=== PATIENT | female | born 1935 | race Caucasian/White ===

== ENCOUNTER → 2016-10-21 | Outpatient (CLI) | payer BC ==
[~2016-10-21] MED LIST: ALPR-411 PO; ASPI-390 PO; HYDR-5688 PO; LEVO50TA6 PO; PRAV20TA PO; SERT100T PO
--- NOTE | 2016-10-21 13:17 | DIAGNOSTIC IMAGING REPORT ---
LUMBAR SPINE CT CT DOSE: 1024.39 mGy.cm HISTORY: Pain. Neuropathy. NERVE COMPRESSION S1 RT SIDED, M48.06 TECHNIQUE: Multiaxial CT images of the lumbar spine were performed and reformatted in the sagittal and coronal plane without the use of contrast. COMPARISON: None. FINDINGS: Evidence for posterior laminectomy and fusion at L3-L4, L4-L5, and L5-S1 . Grade 1 anterolisthesis of L4 on L5 with a maximum anterior translation of 3 mm. Vertebral stature is normal throughout. Moderate degenerative disc changes present. Vacuum disc is identified at L5-S1. There is a grade 1 reverse retrolisthesis of L5 on S1 T12-L1: Minimal broad-based disc bulge. L1-L2: minimal/mild broad-based disc bulge. Minimal impact anterior thecal sac. L2-L3: Minimal broad-based disc bulge. L3-L4: posterior laminectomy and fusion. L4-L5: Posterior laminectomy and fusion. Mild impact upon the anterior aspect of thecal sac to the grade 1 anterolisthesis of L4 and L5 combine with posterior bulging disc. L5-S1: Posterior laminectomy and fusion. Considerable narrowing of the neuroforamina bilaterally. Lateral bulging disc material may be present IMPRESSION: 1. Posterior laminectomy and fusion from L3 through L5. 2. Significant narrowing of the neuroforamina bilaterally L5-S1 secondary to osteophytic reaction, broad-based bulging disc components, as well as a grade 1 reverse spondylolisthesis of L5 on S1. 3. Mild disc bulges at virtually all additional levels of lumbar region with minimal impact anterior thecal sac. Electronically signed by: Man Hughes M.D. 10/21/2016 1:15 PM Dictated Date/Time: 10/21/2016 1:03 PM
== END | disposition home or self-care (01) ==
LOC: C.CTS 12:41
PROVIDERS: ATTEND Orthopaedic Surgery Orthopaedic Surgery of the Spine
DX: M48.06 Spinal stenosis, lumbar region (principal)

== ENCOUNTER 2016-12-01 05:09 | Inpatient (IN) | payer BC, OTHER ==
[2016-11-02 08:59] VITALS: BMI 32.0
[2016-11-02 09:15] VITALS: BMI 32.0
--- NOTE | 2016-11-02 09:28 | PAT Medication Instructions ---
Service Date Nov 02, 2016. Current Home Medication List Alprazolam (Alprazolam), 1 TAB PO Q8 PRN for Anxiety/Agitation Hydrocodone/Acetaminophen 5MG/325MG ([place] 5MG/325MG), 1 TABLET PO Q6H PRN for N Levothyroxine Sodium (Levothyroxine Sodium), 1 TAB PO QAM Pravastatin Sodium (Pravachol), 20 MG PO HS Sertraline Hcl (Zoloft), 150 MG PO QAM Medication Instructions For Your Scheduled Surgery - Take the following medications the morning of surgery with a sip of water OTHERWISE NOTHING TO EAT OR DRINK AFTER MIDNIGHT: Sertraline Hcl (Zoloft), 150 MG PO QAM Levothyroxine Sodium (Levothyroxine Sodium), 1 TAB PO QAM Alprazolam (Alprazolam), 1 TAB PO Q8 PRN for Anxiety/Agitation - Take the following medications as scheduled the night before surgery: Alprazolam (Alprazolam), 1 TAB PO Q8 PRN for Anxiety/Agitation Pravastatin Sodium (Pravachol), 20 MG PO HS If you have any questions please call us at [phone] or [phone] or [phone]
[2016-11-02 10:36] LABS: BASO % 0.6 %; BASO ABS # 0.04 K/uL (0-0.2); COMPLETE YES; EOS % 3.7 %; IG% 0.2 %; MEAN CORPUSCULAR HEMOGLOBIN 29.9 pg (25-34); MEAN CORPUSCULAR HGB CONC 31.1 g/dl (32-36); MEAN PLATELET VOLUME 10.6 fL (7.4-10.4); MONO % 11.5 %; PLATELET COUNT 244 K/uL (130-400); RED BLOOD COUNT 4.79 M/uL (4.2-5.4); WHITE BLOOD COUNT 6.17 K/uL (4.8-10.8)
[2016-11-02 10:39] LABS: URINE APPEARANCE CLEAR (CLEAR); URINE BILIRUBIN NEG (NEG); URINE COLOR YELLOW; URINE NITRITE NEG (NEG); URINE PH 6.5 (4.5-7.5); URINE SPECIFIC GRAVITY 1.021 (1.000-1.030); UROBILINOGEN NEG (NEG)
[2016-11-02 10:41] LABS: MANUAL MICROSCOPIC REQUIRED? NO; REVIEW REQ? NO
[2016-11-02 10:45] LABS: INR 0.9 (0.9-1.1); PARTIAL THROMBOPLASTIN RATIO 1.1
[2016-11-02 10:46] LABS: BUN/CREATININE RATIO 26.2 (10-20); CREATININE 0.85 mg/dl (0.60-1.20); POTASSIUM 4.8 mmol/L (3.5-5.1)
[2016-11-02 10:49] LABS: CALCIUM 9.1 mg/dl (8.5-10.1)
[~2016-12-01] VITALS: Ht 160 cm; Wt 84.4 kg
[2016-12-01] VITALS (9 sets, daily range): BP systolic 117–165; BP diastolic 64–84; PULSE 69–79; TEMP 36.6–37.4; O2SAT 90–94; Ht 160 cm; Wt 84.4 kg
[~2016-12-01 05:09] MED LIST changes: -ASPI-390 PO
[2016-12-01] MEDS ORDERED: CEFAZOLIN 2000 MG/60 ML D5W 60 ML IV SCH (06:00)
[2016-12-01] MEDS ORDERED: SODIUM CHLORIDE 0.9% 1000ML 1,000 ML IV SCH ×2 (06:00→10:07)
[2016-12-01] MEDS ORDERED: LACTATED RINGER'S 1000ML 1,000 ML IV SCH (06:00)
[2016-12-01] MEDS ORDERED: BUPIVACAINE/EPINEPHRINE 0.5% MPF 1:200,000 10 ML VIAL ONE ×2 (06:57→06:58)
[2016-12-01] MEDS ORDERED: GELATIN SPONGE SZ 100 ONE (06:57)
[2016-12-01] MEDS ORDERED: THROMBIN FOR SOLN 20000 UNIT KIT ONE (06:57)
[2016-12-01] MEDS ORDERED: VANCOMYCIN HCL 1000MG/20ML VIAL ONE (06:58)
[2016-12-01] MEDS ORDERED: BACITRACIN 50000 UNIT VIAL ONE ×2 (06:58→08:19)
[2016-12-01] MEDS ORDERED: FENTANYL CITRATE INJ 50 MCG/1 ML 2 ML VIAL ONE (07:04)
[2016-12-01] MEDS ORDERED: MIDAZOLAM HCL 1 MG/ML 2ML VIAL ONE (07:04)
[2016-12-01] MEDS ORDERED: HYDROmorphone INJ 2 MG/ML SYR/VIAL ONE (07:04)
[2016-12-01] MEDS ORDERED: KETAMINE HCL INJ 50 MG/ML 10 ML VIAL ONE (07:05)
--- NOTE | 2016-12-01 07:07 | History and Physical ---
History & Physical Date Dec 01, 2016. Chief Complaint Back and lower extremity pain. Weakness numbness numbness tingling History of Present Illness The patient is a 81 year old female with complaints of back and lower extremity difficulty paresthesias numbness tingling to her foot ability to stand and inability to walk distances Past Medical/Surgical History Medical Problems: (1) Spinal stenosis, lumbar region, with neurogenic claudication (2) Spondylolisthesis, lumbar region Additional History Hepatic Disease: No Endocrine Disorder: No Kidney Disease: No Hypertension: Yes Heart Disease: Yes Bleeding Tendencies: No Infectious Diseases: No Allergies Coded Allergies: Alendronate (Verified Allergy, Unknown, unknown reaction, 12/01/16) Home Medications Scheduled Levothyroxine Sodium (Levothyroxine Sodium), 1 TAB PO QAM Pravastatin Sodium (Pravachol), 20 MG PO HS Sertraline Hcl (Zoloft), 150 MG PO QAM Scheduled PRN Alprazolam (Alprazolam), 1 TAB PO Q8 PRN for Anxiety/Agitation Hydrocodone/Acetaminophen 5MG/325MG ([place] 5MG/325MG), 1 TABLET PO Q6H PRN for N Physical Examination Skin: warm/dry, no rash Eyes: normal inspection ENT: normal ENT inspection Neck: supple Respiratory/Chest: lungs clear Cardiovascular: regular rate, rhythm Abdomen / GI: normal bowel sounds Extremities: normal range of motion (decreased range of motion pain with side bending pain with forward flexion) Neurologic/Psych: + pertinent finding (this tingling paresthesias loss of Achilles reflex and loss of pushoff strength) Diagnosis Severe spinal stenosis lumbar spine L5-S1 nerve root irritation and compression. Disc collapse at L5-S1 ASA Classification: ASA Class III Plan of Treatment Plan: Replanting a lumbar spine decompression laminectomy L5-S1 and posterior lumbar interbody fusion 5 S1 she also has some implants above this area fusion which will be removed and modified
[2016-12-01] MEDS ORDERED: ONDANSETRON INJ 2 MG/ML 2 ML VIAL IV PRN ×2 (08:00→10:15)
[2016-12-01] MEDS ORDERED: ATROPINE SULFATE 0.1 MG/ML 5ML SYR IV PRN (08:00)
[2016-12-01] MEDS ORDERED: HYDROmorphone INJ 1 MG/ML SYR IV PRN (08:00)
[2016-12-01] MEDS ORDERED: EpHEDrine SULFATE INJ 50 MG/ML AMP IV PRN (08:00)
[2016-12-01] MEDS ORDERED: LARYING-O-JET KIT (LTA) ONE ×2 (09:07)
[2016-12-01] MEDS ORDERED: GLYCOPYRROLATE INJ 0.2 MG/ML VIAL ONE (09:07)
[2016-12-01] MEDS ORDERED: DEXAMETHASONE SOD INJ 4 MG/ML VIAL ONE (09:07)
[2016-12-01] MEDS ORDERED: ONDANSETRON INJ 2 MG/ML 2 ML VIAL ONE (09:07)
[2016-12-01] MEDS ORDERED: ROCURONIUM BROMIDE 10 MG/ML 5 ML VIAL ONE (09:07)
[2016-12-01] MEDS ORDERED: PROPOFOL IV EMULSION 10 MG/ML 20 ML VIAL IV ONE (09:07)
[2016-12-01] MEDS ORDERED: LIDOCAINE HCL 2% 2 ML VIAL (20MG/ML) ONE (09:07)
[2016-12-01] MEDS ORDERED: NEOSTIGMINE METHYLSULFATE 5 MG/5 ML SYR ONE (09:07)
--- NOTE | 2016-12-01 10:06 | DIAGNOSTIC IMAGING REPORT ---
SPINE ONE VIEW, ANY LEVEL CLINICAL HISTORY: L5-S1 spinal decompression and fusion. Hardware removal. COMPARISON STUDY: 03/14/2016 FINDINGS: A single lateral fluoroscopic spot images provided for interpretation. This reveals pedicle screws at the L4-L5 and S1 levels. There is a grade 1 spondylolisthesis of L4 and L5. There are postsurgical changes of an L5-S1 discectomy and interbody fusion. The provided lateral view is obliqued. On this view, one of pedicle screws approaches the disc level. This may represent a projectional artifact. IMPRESSION: Intraoperative fluoroscopic spot image as described above Electronically signed by: Ruperto Diaz M.D. 12/01/2016 10:05 AM Dictated Date/Time: 12/01/2016 10:02 AM
--- NOTE | 2016-12-01 10:13 | [facility] Operative Report ---
Operative Report Operative Date Dec 01, 2016. Pre-Operative Diagnosis Severe spinal stenosis lumbar spine L5-S1 nerve root irritation and compression. Disc collapse at L5-S1 Post-Operative Diagnosis Severe spinal stenosis lumbar spine L5-S1 nerve root irritation and compression. Disc collapse at L5-S1 Procedure(s) Performed L5-S1 Posterior Lumbar Interbody Fusion, Removal Old Implants; Implantation of pedicle screws L5-S1 Surgeon Dr. Walter Faria Waste Reclaimer Surgeon(s) Jamaal Castle PA-C Estimated Blood Loss 250 ML Findings Disc space collapse and severe stenosis lumbar spine L5-S1 Specimens a. explanted hardware Complication(s) None Disposition Recovery Room / PACU Indications Severe back and lower extremity difficulty paresthesias numbness tingling ability to stand walk upright Description of Procedure Description of procedure Patient was taken to the operative a general intubated anesthetic provided to the patient. Placed prone on the Fede table all soft tissue areas including her eyes were protected. Scrubbed first with Betadine prepped her with ChloraPrep. Draped sterile. An incision fashion incision dissecting the soft tissue and muscle stakes player over the close screws in the facet joint at L5-S1. Formerly a completely complete decompression procedure L5-S1 foraminotomies partial facetectomy and discectomy. Then safely took out the old grabiel was from 345 lumbar spine. An safely got pedicle screws into the sacral 1 pedicle maintain the other pedicle screws. Needle count correct at the close of procedure. No apparent interoperative complications. Thank you I attest to the content of the Intraoperative Record and any orders documented therein. Any exceptions are noted below.
[2016-12-01] MEDS ORDERED: MAGNESIUM HYDROXIDE SUSP 30 ML UDC PO PRN (10:15)
[2016-12-01] MEDS ORDERED: PROMETHAZINE HCL INJ 12.5 MG in SODIUM CHLORIDE 0.9% 50ML 50 ML IV PRN (10:15)
[2016-12-01] MEDS ORDERED: LORAZEPAM 1 MG TAB PO PRN (10:15)
[2016-12-01] MEDS ORDERED: ACETAMINOPHEN 325 MG TAB PO PRN (10:15)
[2016-12-01] MEDS ORDERED: NALOXONE HCL 0.4 MG/1 ML VIAL/CARP IV PRN (10:15)
[2016-12-01] MEDS ORDERED: METOCLOPRAMIDE HCL INJ 5 MG/ML 2 ML VIAL IV PRN (10:15)
[2016-12-01] MEDS ORDERED: LORAZEPAM INJ 1 MG in SYRINGE 0 ML IV PRN (10:15)
[2016-12-01] MEDS ORDERED: ALPRAZOLAM 0.5 MG TAB PO PRN (10:15)
[2016-12-01] MEDS ORDERED: HYDROmorphone HCL 0.5MG/ML 50 ML CASSETTE ONE (10:15)
[2016-12-01] MEDS: FENTANYL CITRATE INJ 50 MCG/1 ML 2 ML VIAL IV PRN ×3 (10:16→10:26)
[2016-12-01 10:35] LABS: HEMATOCRIT 41.2 % (37-47)
--- NOTE | 2016-12-01 11:33 | Anesthesiology Progress Note ---
Anesthesia Post Op Note Date & Time Dec 01, 2016 at 11:32 Vital Signs Pain Intensity: 2 Vital Signs Past 12 Hours Date Time Temp Pulse Resp B/P (MAP) Pulse Ox O2 Delivery O2 Flow Rate FiO2 12/01/16 11:10 36.9 79 16 128/74 (92) 90 Nasal Cannula 4.0 12/01/16 10:47 36.9 12/01/16 10:45 76 20 12/01/16 10:45 76 20 95 12/01/16 10:42 147/68 12/01/16 10:40 79 13 94 12/01/16 10:40 78 13 12/01/16 10:37 136/67 12/01/16 10:35 77 12 12/01/16 10:35 77 12 95 12/01/16 10:32 146/59 12/01/16 10:30 76 18 95 12/01/16 10:30 76 18 12/01/16 10:27 141/67 12/01/16 10:25 78 12 96 12/01/16 10:25 Nasal Cannula 4 12/01/16 10:25 78 12 12/01/16 10:22 151/75 12/01/16 10:20 78 13 95 12/01/16 10:20 78 13 12/01/16 10:17 127/110 12/01/16 10:15 75 10 12/01/16 10:15 75 10 95 12/01/16 10:11 148/88 12/01/16 10:05 37.1 79 16 148/88 95 Mask 10 12/01/16 05:36 36.6 71 20 165/84 (111) 91 Room Air Notes Mental Status: alert / awake / arousable, participated in evaluation Pt Amnestic to Procedure: Yes Nausea / Vomiting: adequately controlled Pain: adequately controlled Airway Patency, RR, SpO2: stable & adequate BP & HR: stable & adequate Hydration State: stable & adequate Anesthetic Complications: no major complications apparent
[2016-12-01] MEDS: SODIUM CHLORIDE 0.9% 1000ML 1,000 ML IV SCH ×2 (13:38→22:44)
[2016-12-01] MEDS: CEFAZOLIN IV 2,000 MG in DEXTROSE 5% 50ML 50 ML IV SCH ×2 (15:44→23:41)
[2016-12-01] MEDS ORDERED: NURSING VERBAL MED ORDER ONE (16:30)
[2016-12-01] MEDS: CIPROFLOXACIN HCL 0.3% OP SOLN 2.5 ML BTL OP SCH ×3 (17:00→22:44)
[2016-12-01] MEDS: DEXAMETHASONE INJ 10 MG in SYRINGE 0 ML IV SCH (18:06)
[2016-12-01] MEDS: HYDROmorphone HCL 0.5MG/ML 50 ML CASSETTE IV PRN ×2 (18:51→22:51)
[2016-12-01] MEDS: PRAVASTATIN SOD 20 MG TAB PO SCH (20:33)
[2016-12-02] MEDS: CIPROFLOXACIN HCL 0.3% OP SOLN 2.5 ML BTL OP SCH ×8 (02:03→23:08)
[2016-12-02] MEDS: DEXAMETHASONE INJ 10 MG in SYRINGE 0 ML IV SCH ×3 (02:03→18:45)
[2016-12-02 03:30] VITALS: BP 106/62; PULSE 69; TEMP 37.2; O2SAT 95
[2016-12-02] MEDS: LEVOTHYROXINE 50 MCG TAB PO SCH (05:26)
[2016-12-02] MEDS ORDERED: NURSING VERBAL MED ORDER ONE (05:45)
[2016-12-02] MEDS ORDERED: BISACODYL 10 MG SUPP PR PRN (06:00)
[2016-12-02] MEDS ORDERED: BISACODYL 5 MG TABEC PO PRN (06:00)
[2016-12-02] MEDS: HYDROmorphone HCL 0.5MG/ML 50 ML CASSETTE IV PRN (06:57)
[2016-12-02 07:06] VITALS: BP 139/71; PULSE 65; TEMP 37; O2SAT 92
--- NOTE | 2016-12-02 07:46 | Discharge Instructions ---
Discharge Instructions Date of Service Dec 02, 2016. Admission Reason for Admission: L5-S1 Spondylolisthesis Discharge Discharge Diagnosis / Problem: stenosis, disc herniation, spondy Discharge Goals Goal(s): Improve function Activity Recommendations Activity Limitations: as noted below Lifting Limitations: until after follow-up appointment Exercise/Sports Limitations: until after follow-up appointment May Resume Sexual Activity: after follow-up appointment Shower/Bathe: keep incision dry Driving or Machine Use: . Instructions / Follow-Up Instructions / Follow-Up MEDICATIONS: Please take your prescriptions as instructed at your pre-op appointment. SPECIAL CARE: The following information is intended to answer some of the common questions and concerns regarding your surgery. Each patient is an individual and receives individual counselling throughout the course of treatment, from diagnosis to surgery all the way through recovery. What follows is not an exhaustive list, but should be a useful guide to some of the common questions and concerns patients have regarding their surgeries. These are not provided to keep you from calling us; rather, they give you something accurate and concrete to reference as you recover from your procedure. If you need us, we are available to you. As always, if you are not sure about something, call us at [phone]. MEDICAL EMERGENCIES: For these conditions, call 911 or go to your local hospital-based Emergency Department - not [facility] or equivalent. * Paralysis * Severe chest pain or difficulty breathing * Swelling or redness of either leg Spine procedures can be rather complex and though complications are rare, they do occur. In such cases, effective advice regarding emergency situations cannot always be addressed over the telephone. You may be referred to the emergency department for more effective management of your problem. Activity Limitations: It is important to give your body time to heal, so please limit your activities : * In general, don't do anything that moves your spine too much. You should avoid contact sports, twisting or heavy lifting while you recover. * 5-10 pounds is all you should attempt to lift. * You should not plan on driving for approximately 3 weeks and you should avoid traveling more than 30-45 minutes at a time. Longer trips should be broken down with walking breaks spaced appropriately. * Physical therapy is not usually required. * Walking and good posture practices will help you recover and regain your function. * Avoid straining or sudden changes in position. * In general, the goal is to take it easy and recover. Don't cause any new problems. Just relax. Showers: * Do not take a bath, use a Jacuzzi or hot tub or otherwise submerge your incision. * It is usually safe to take a shower 4-5 days after your surgery. * Your incision does not require any special creams or ointments. * Simply clean it with soap and water, dry and re-dress with a clean bandage afterwards. Incision: * Keep incision clean, dry and protected until your first follow-up appointment. * Some amount of drainage and redness is normal. Any drainage should be fairly clear and not have a foul odor. * If you feel anything is wrong or you have excessive drainage, please call us. * Your stitches and husam will be removed 10-14 days after your surgery. At the time of your first post-op visit. * Neck surgeries are typically closed with a suture underneath the skin. The steri-strips over the incision should be maintained until we see you in the office. Bracing: * You may be provided with a back or neck brace to encourage good posture and prevent injury. It will remind you not to do too much as you heal and will alert others to the fact that you have had a surgery. * Back braces may be removed for showers and when you are resting at home. They must be worn when you are walking around for any period of time or for travel. * For neck surgery, you will likely be provided with two cervical collars. The soft collar ([place] or foam rubber) is worn most commonly throughout the day and while sleeping. The plastic collar (provided at the hospital) is for showering/bathing. * Except while eating, collars should remain in place. More specifically, bracing is provided for a purpose and should be worn. * Please obtain your brace or collars prior to your operation and bring them to the hospital with you on the day of surgery. * You should also bring your collars to your post-op appointment with Dr. Faria. You should always take good care of your body and practice healthy habits, especially following surgery. You should: * Follow your doctor's treatment plan * Sit and stand properly with good posture (ears over shoulders, shoulders over hips) Don't slouch * Learn to lift correctly * Exercise regularly (low-impact aerobic exercise is especially good, but check with your doctor first) * Generally, be up and walking for 5-10 minutes at a time at least 3-4 times per day from the day you get home * Increasing walking to tolerance until you can walk for 20-30 minutes at a time * Attain and maintain a healthy body weight * Eat healthy foods ( a well-balanced, low-fat diet rich in fruits and vegetables) and get enough calcium * Avoid excessive use of alcohol When to call our office - If you notice any of the following: * Increased pain not relieve by pain medicine * Fevers greater then 100 degrees F, chills or flu symptoms * Increased redness around incision * Drainage from the incision that is not clear * Any foul smelling drainage * Swelling or fluid collection beneath the skin Miscellaneous: * In the hospital, you may be given a walker or cane for support while walking. These are temporary needs and are intended to prevent injuries due to falls. You may discontinue them when you feel strong and steady enough on your feet. * Sleep in a comfortable position. We find that many patients find a lounge chair or recliner with several pillows to be beneficial in the early post-operative period. * The support stockings should be used for 7-10 days and may be discontinued when you are back to walking more and conducting usual household activities. No problem is insignificant. We are here to help you and get you well. Contact us at [phone]. Definitions: Foraminotomy: If part of the disc or a bone spur (osteophyte) is pressing on a nerve as it leaves the vertebra (through an exit called the foramen), a foraminotomy may be done. Otomy means "to make an opening." A foraminotomy is making the opening of the foramen larger, so the nerve can exit without being compressed. Laminotomy: Similar to the foraminotomy, a laminotomy makes a larger opening, this time in your bony plate protecting your spinal canal and spinal cord (the lamina). The lamina may be pressing on your nerve, so the surgeon may make more room for the nerves using a laminotomy. Laminectomy: Sometimes, a laminotomy is not sufficient. The surgeon may need to remove all or part of the lamina. This procedure is called a laminectomy. This can often be done at many levels without any harmful effects. Current Hospital Diet Patient's current hospital diet: Regular Diet Discharge Diet Recommended Diet: Regular Diet Procedures Procedures Performed: L5-S1 Posterior Lumbar Interbody Fusion, Removal Old Implants; Implantation of pedicle screws L5-S1 Pending Studies Studies pending at discharge: no Medical Emergencies . Who to Call and When: Medical Emergencies: If at any time you feel your situation is an emergency, please call 911 immediately. . Non-Emergent Contact Non-Emergency issues call your: Primary Care Provider . "Provider Documentation" section prepared by Walter Faria. . VTE Core Measure Inpt VTE Proph given/why not?: Treatment not indicated
--- NOTE | 2016-12-02 07:51 | Progress Note ---
Subjective Date of Service: Dec 02, 2016. Subjective Pt evaluation today including: conversation w/ patient, chart review, lab review Voiding: no voiding problems Objective Vital Signs Date Time Temp Pulse Resp B/P (MAP) Pulse Ox O2 Delivery O2 Flow Rate FiO2 12/02/16 07:39 Room Air 12/02/16 07:06 37.0 65 16 139/71 (93) 92 Room Air 12/02/16 03:30 37.2 69 24 106/62 (77) 95 Room Air 12/01/16 23:45 Room Air 12/01/16 22:52 36.7 73 14 122/66 (84) 93 Room Air 12/01/16 20:05 37.4 79 18 150/76 (100) 91 Room Air 12/01/16 19:15 Room Air 12/01/16 15:08 37.0 73 18 134/64 (87) 93 Nasal Cannula 2.0 12/01/16 14:09 78 16 141/73 (95) 94 Nasal Cannula 4.0 12/01/16 13:09 69 16 117/71 (86) 92 3.0 12/01/16 12:08 76 16 140/71 (94) 92 Room Air 12/01/16 11:40 78 16 138/75 (96) 92 Nasal Cannula 4.0 12/01/16 11:10 36.9 79 16 128/74 (92) 90 Nasal Cannula 4.0 12/01/16 11:10 90 Nasal Cannula 4.0 12/01/16 11:10 90 Nasal Cannula 4.0 12/01/16 10:47 36.9 12/01/16 10:45 76 20 12/01/16 10:45 76 20 95 12/01/16 10:42 147/68 12/01/16 10:40 79 13 94 12/01/16 10:40 78 13 12/01/16 10:37 136/67 12/01/16 10:35 77 12 12/01/16 10:35 77 12 95 12/01/16 10:32 146/59 12/01/16 10:30 76 18 95 12/01/16 10:30 76 18 12/01/16 10:27 141/67 12/01/16 10:25 78 12 96 12/01/16 10:25 Nasal Cannula 4 12/01/16 10:25 78 12 12/01/16 10:22 151/75 12/01/16 10:20 78 13 95 12/01/16 10:20 78 13 12/01/16 10:17 127/110 12/01/16 10:15 75 10 12/01/16 10:15 75 10 95 12/01/16 10:11 148/88 12/01/16 10:05 37.1 79 16 148/88 95 Mask 10 Laboratory Results Last 24 Hours Test 12/01/16 10:21 Hemoglobin 13.0 g/dL Hematocrit 41.2 % Assessment and Plan Plan We'll have the patient up and ambulatory here today hopefully passes physical therapy. We will arrange for home health care and services for the patient then anticipation of discharge home MondayDecember 03 dressings we changed tomorrow Castro catheter discharged today. Thank you Discharge planning: home with home health
[2016-12-02] MEDS ORDERED: HYDROmorphone INJ 1 MG/ML SYR IV PRN (08:00)
[2016-12-02] MEDS ORDERED: DC PCA ONE (08:00)
[2016-12-02] MEDS ORDERED: OXYCODONE/ACETAMINOPHEN 5-325 TAB PO PRN ×2 (08:00)
[2016-12-02] MEDS ORDERED: HYDROmorphone INJ 2 MG/ML SYR/VIAL IV PRN (08:00)
[2016-12-02] MEDS: CEFAZOLIN IV 2,000 MG in DEXTROSE 5% 50ML 50 ML IV SCH (08:01)
--- NOTE | 2016-12-02 08:06 | Anesthesiology Progress Note ---
Anesthesia Post Op Note Date & Time Dec 02, 2016 at 08:05 Vital Signs Pain Intensity: 4.0 Vital Signs Past 12 Hours Date Time Temp Pulse Resp B/P (MAP) Pulse Ox O2 Delivery O2 Flow Rate FiO2 12/02/16 07:39 Room Air 12/02/16 07:06 37.0 65 16 139/71 (93) 92 Room Air 12/02/16 03:30 37.2 69 24 106/62 (77) 95 Room Air 12/01/16 23:45 Room Air 12/01/16 22:52 36.7 73 14 122/66 (84) 93 Room Air Notes Mental Status: alert / awake / arousable, participated in evaluation Pt Amnestic to Procedure: Yes Nausea / Vomiting: adequately controlled Pain: adequately controlled Airway Patency, RR, SpO2: stable & adequate BP & HR: stable & adequate Hydration State: stable & adequate Anesthetic Complications: no major complications apparent
[2016-12-02] MEDS: SERTRALINE HCL 50 MG TAB PO SCH (09:06)
[2016-12-02] MEDS: POLYETHYLENE (MIRALAX) 17 GM PACK PO SCH (09:06)
[2016-12-02 12:45] VITALS: BP 122/62; PULSE 65; O2SAT 93
[2016-12-02 15:54] VITALS: BP 151/70; PULSE 72; TEMP 37.2; O2SAT 94
[2016-12-02 16:30] VITALS: O2SAT 94
[2016-12-02 17:19] VITALS: TEMP 37.1
[2016-12-02] MEDS: PRAVASTATIN SOD 20 MG TAB PO SCH (20:35)
[2016-12-03 00:11] VITALS: BP 169/93; PULSE 71; TEMP 36.8; O2SAT 94
[2016-12-03] MEDS: CIPROFLOXACIN HCL 0.3% OP SOLN 2.5 ML BTL OP SCH ×3 (01:59→08:27)
[2016-12-03] MEDS: DEXAMETHASONE INJ 10 MG in SYRINGE 0 ML IV SCH (01:59)
[2016-12-03 02:06] VITALS: BP 143/76
[2016-12-03] MEDS: LEVOTHYROXINE 50 MCG TAB PO SCH (05:11)
[2016-12-03 06:28] VITALS: BP 141/85; PULSE 64; TEMP 36.9; O2SAT 90
[2016-12-03] MEDS: POLYETHYLENE (MIRALAX) 17 GM PACK PO SCH (08:28)
[2016-12-03] MEDS: SERTRALINE HCL 50 MG TAB PO SCH (08:28)
--- NOTE | 2016-12-03 08:41 | Discharge Summary ---
Orthopedic Discharge Summary Admission Date/Reason Dec 01, 2016 at 10:12 L5-S1 Spondylolisthesis. Discharge Date/Disposition Dec 03, 2016 Home with services Diagnosis Principal Diagnosis: Spondylolisthesis severe degenerative changes disc herniation lumbar spine all at lumbar 5 S1 Procedure(s) Performed Decompression laminectomy at L5-S1 scan discectomy posterior lumbar interbody fusion at L5-S1. This was preceded with removal of the spinal instrumentation and reinsertion thank you Medication Reconciliation [place] 5 mg Admission Physical Exam As per Admitting History & Physical. Hospital Course Patient was admitted after spinal surgery on December 01. She is improved stable out of bed to chair day one ambulatory day one after surgery and truly stabilized. As of the December 03 she is improved stable alert oriented no chest pain no shortness of breath no confusion he was discharged home improved stable condition her back in the office approximately 10 days prescription for [place] 5 mg on her chart. Discharge Instructions Please refer to the electronic Patient Visit Report (Discharge Instructions) for additional information.
[2016-12-03 08:55] VITALS: TEMP 36.9; O2SAT 90
[2016-12-03 09:08] VITALS: BP 141/85; PULSE 64; O2SAT 90
== END 2016-12-03 09:55 | disposition home or self-care (01) | DRG 460 ==
LOC: C.ACU 05:09 → C.3E 10:12 → ENRESERV 10:35
PROVIDERS: ADMIT Orthopaedic Surgery Orthopaedic Surgery of the Spine; ATTEND Orthopaedic Surgery Orthopaedic Surgery of the Spine
PROC: [UNRECOGNIZED PROCEDURE] (principal; 2016-12-01 07:30)
PROC: 0SP004Z Removal of Internal Fixation Device from Lumbar Vertebral Joint, Open Approach (ICD-10-PCS; principal; 2016-12-01 07:30)
DX: M48.07 Spinal stenosis, lumbosacral region (principal); M48.57XA Collapsed vertebra, not elsewhere classified, lumbosacral region, initial encounter for fracture; F32.9 Major depressive disorder, single episode, unspecified; E66.9 Obesity, unspecified; Z79.899 Other long term (current) drug therapy; Z68.33 Body mass index [BMI] 33.0-33.9, adult

== ENCOUNTER → 2017-02-03 | Outpatient (CLI) | payer BC ==
[2017-02-03 16:28] LABS: HEMATOCRIT 39.1 % (37-47); MEAN CELL VOLUME 92.9 fL (80-100); MEAN CORPUSCULAR HEMOGLOBIN 28.5 pg (25-34); MEAN CORPUSCULAR HGB CONC 30.7 g/dl (32-36); MEAN PLATELET VOLUME 10.9 fL (7.4-10.4); PLATELET COUNT 282 K/uL (130-400); RED BLOOD COUNT 4.21 M/uL (4.2-5.4); WHITE BLOOD COUNT 7.27 K/uL (4.8-10.8)
[2017-02-03 16:38] LABS: ALT/SGPT 17 U/L (12-78); BLOOD UREA NITROGEN 29 mg/dl (7-18); BUN/CREATININE RATIO 36.5 (10-20); CALCIUM 9.2 mg/dl (8.5-10.1); CARBON DIOXIDE 28 mmol/L (21-32); CHLORIDE 105 mmol/L (98-107); CHOLESTEROL 152 mg/dl (0-200); CREATININE 0.78 mg/dl (0.60-1.20); GLUCOSE 88 mg/dl (70-99); POTASSIUM 4.3 mmol/L (3.5-5.1); SODIUM 140 mmol/L (136-145)
[2017-02-03 16:49] LABS: ALB/GLOB RATIO 1.1 (0.9-2); ALKALINE PHOSPHATASE 91 U/L (45-117); AST/SGOT 18 U/L (15-37); HDL CHOLESTEROL 51 mg/dl; LDL CHOLESTEROL CALCULATED 75 mg/dl; TRIGLYCERIDES 128 mg/dl (0-150); VERY LOW DENSITY LIPOPROT CALC 26 mg/dl
== END | disposition home or self-care (01) ==
LOC: C.LABBFT 12:32
PROVIDERS: ATTEND Internal Medicine
DX: R06.09 Other forms of dyspnea (principal); I10 Essential (primary) hypertension

== ENCOUNTER → 2017-02-13 | Outpatient (CLI) | payer BC ==
--- NOTE | 2017-02-13 12:38 | DIAGNOSTIC IMAGING REPORT ---
TWO VIEW CHEST CLINICAL HISTORY: Dyspnea on exertion. FINDINGS: PA and lateral chest radiographs are compared to study dated 02/25/2016. The PA view is degraded by apical lordotic positioning. The the heart is enlarged and there is atherosclerotic calcification of the thoracic aorta. Chronic interstitial thickening is similar to previous. There is no airspace consolidation or pleural effusion. There is no pneumothorax. The skeletal structures are osteopenic. Degenerative change and hyperkyphosis are seen in the thoracic spine. Fusion hardware is partially imaged in the lumbar spine. IMPRESSION: Cardiomegaly with no acute cardiopulmonary abnormality. Electronically signed by: Teo Pride M.D. 02/13/2017 12:37 PM Dictated Date/Time: 02/13/2017 12:35 PM
== END | disposition home or self-care (01) ==
LOC: C.RAD 12:21
PROVIDERS: ATTEND Internal Medicine
DX: R06.09 Other forms of dyspnea (principal); I51.7 Cardiomegaly

== ENCOUNTER → 2017-08-21 | Outpatient (CLI) | payer BC ==
[2017-08-21 12:32] LABS: BASO % 0.4 %; BASO ABS # 0.03 K/uL (0-0.2); EOS % 2.3 %; EOS ABS # 0.16 K/uL (0-0.5); HEMATOCRIT 44.3 % (37-47); HEMOGLOBIN 14.3 g/dL (12.0-16.0); IG# 0.02 K/uL (0.00-0.02); LYMPH % 35.4 %; LYMPH ABS # 2.49 K/uL (1.2-3.4); MEAN CELL VOLUME 96.9 fL (80-100); MEAN CORPUSCULAR HEMOGLOBIN 31.3 pg (25-34); MEAN CORPUSCULAR HGB CONC 32.3 g/dl (32-36); MEAN PLATELET VOLUME 11.2 fL (7.4-10.4); MONO % 9.1 %; MONO ABS # 0.64 K/uL (0.11-0.59); NEUT % 52.5 %; PLATELET COUNT 221 K/uL (130-400); RED CELL DISTRIBUTION WIDTH CV 14.9 % (11.5-14.5); RED CELL DISTRIBUTION WIDTH SD 52.7 fL (36.4-46.3); WHITE BLOOD COUNT 7.04 K/uL (4.8-10.8)
[2017-08-21 13:06] LABS: ALKALINE PHOSPHATASE 85 U/L (45-117); ALT/SGPT 22 U/L (12-78); AST/SGOT 16 U/L (15-37); BLOOD UREA NITROGEN 24 mg/dl (7-18); CALCIUM 9.1 mg/dl (8.5-10.1); CARBON DIOXIDE 28 mmol/L (21-32); CHOLESTEROL 177 mg/dl (0-200); GLUCOSE 92 mg/dl (70-99); LDL CHOLESTEROL CALCULATED 99 mg/dl; POTASSIUM 4.7 mmol/L (3.5-5.1); SODIUM 138 mmol/L (136-145); TOTAL PROTEIN 7.2 gm/dl (6.4-8.2)
== END | disposition home or self-care (01) ==
LOC: C.LABBFT 09:23
PROVIDERS: ATTEND Internal Medicine
DX: I10 Essential (primary) hypertension (principal); E03.9 Hypothyroidism, unspecified; E78.00 Pure hypercholesterolemia, unspecified

== ENCOUNTER 2023-04-16 17:01 | Inpatient (IN) ==
[2023-04-16 17:53] LABS: Basophils # (auto) 0.05 K/uL (0.00-0.20); Basophils % (auto) 0.4 %; Eosinophils # (auto) 0.09 K/uL (0.00-0.50); Eosinophils % (auto) 0.8 %; Hematocrit (blood only) 43.6 % (37.0-47.0); Hemoglobin 14.2 g/dl (12.0-16.0); Immature Granulocytes # (auto) 0.06 K/uL (0.01-0.20); Immature Granulocytes % (auto) 0.5 %; Lymphocytes # (auto) 2.28 K/uL (1.20-3.40); Lymphocytes % (auto) 19.4 %; Mean Corpuscular Hemoglobin 32.1 pg (25.0-34.0); Mean Corpuscular Hgb Conc 32.6 g/dL (32.0-36.0); Mean Corpuscular Volume 98.6 fL (80.0-100.0); Mean Platelet Volume 11.5 fL (9.4-12.4); Monocytes # (auto) 1.24 K/uL (0.11-0.59); Monocytes % (auto) 10.5 %; Neutrophils # (auto) 8.06 K/uL (1.40-6.50); Neutrophils % (auto) 68.4 %; Platelet Count 153 K/uL (130-400); RDW Coefficient of Variation 14.3 % (11.5-14.5); Red Blood Count 4.42 M/uL (4.20-5.40); White Blood Count 11.78 K/ul (4.8-10.8)
[2023-04-16 18:07] LABS: Albumin Globulin Ratio 1.6 (0.9-2); Albumin Level 4.3 gm/dl (3.4-5.0); BUN Creatinine Ratio 27.1 (10-20); Bilirubin,Total 0.7 mg/dl (0.2-1.0); Calcium 9.1 mg/dl (8.6-10.3); Creatinine Clr Calc Pharmacy 48.4 ml/min; Est GFR (African American) 72.4 ml/min; Est GFR (Non-African American) 62.5 ml/min; Globulin 2.7 gm/dl (2.5-4.0); Potassium 4.2 mmol/L (3.5-5.1)
[2023-04-16] MEDS ORDERED: VANCOMYCIN CONSULT ACTIVE PRN (19:29)
[2023-04-16] MEDS ORDERED: VANCOMYCIN HCL 1,750 MG in SODIUM CHLORIDE 0.9% 500 ML IV ONE (19:29)
[2023-04-16] MEDS ORDERED: AMPICILLIN 1,000 MG in SODIUM CHLOR 0.9% MINI-B 100 ML IV SCH (19:30)
[2023-04-16] MEDS ORDERED: KETOROLAC TROMETHAMINE 15 MG/ML VIAL IV ONE (21:36)
--- NOTE | 2023-04-16 21:45 | Emergency Department Note ---
Impression & Plan Flexor tenosynovitis of finger ED Provider Note NAME: JOSELO ARIAS AGE: 87 SEX: F : 1935 ARRIVES VIA: Walk-In INFORMANT: Patient, ED PROVIDER(S): Gerardo Miramontes MD CHIEF COMPLAINT: Finger swelling HPI: This is an 87-year-old female presenting for left index finger swelling. Patient states that she was working on making wreaths, when she was cut. She washed the wound thoroughly and also placed antibiotic ointment on it. However today she woke up and it was extremely swollen and red. She notes that it has quickly progressed. She notes that the swelling is now the entire finger, going down into the actual hand and possibly into the second finger. She states it is impossible for her to flex it due to pain. No fevers or chills. No nausea or vomiting. ROS: See above HPI for pertinent positives & negatives. A total of 10 systems reviewed and were otherwise negative. PAST MEDICAL HISTORY: See Below PAST SURGICAL HISTORY: See Below FAMILY HISTORY: See Below SOCIAL HISTORY: See Below HOME MEDICATIONS: See Below ALLERGIES: See Below VITALS: See Below PHYSICAL EXAMINATION: General: resting comfortably in no acute distress Head: Normocephalic and atraumatic Eyes: Normal inspection, extraocular muscles intact Ear, nose, throat: Normal external exam Neck: Normal range of motion Respiratory: lungs clear to auscultation bilaterally Cardiovascular: Regular rate/rhythm, no murmur GI: soft, nontender, no guarding or rebound Extremities: nontender, moves all extremities, left index finger is uniformly swollen, pain with passive extension, erythematous, tender on the flexor aspect Neuro: The patient awake and alert, appropriately conversive, no focal deficits, symmetric faces Skin: Warm, dry, and intact MEDICAL DECISION MAKING: This is a 87-year-old female presenting for left index finger swelling. Concern for cellulitis versus deeper's infection such as flexor tenosynovitis. Patient does have 3 out of 4 signs of flexor tenosynovitis. -X-ray of the finger as read by me does not reveal any osseous fracture or radiopaque retained foreign body -Laboratories reviewed showing leukocytosis to 11.78 otherwise no electrolyte disturbances. -Will give empiric antibiotic with Vanco and Unasyn. -Discussed case with Dr. Lara, orthopedic surgery. He recommends MRI of the finger as well as n.p.o. after midnight. Will be evaluated for surgery in the morning. -Admitted to Dr. Salcido, hospital service Differential diagnosis: Cellulitis, flexor tenosynovitis, fracture, retained foreign body, abscess ER treatment provided: See below Diagnostics interpreted by me: ECG: None Cardiac Monitoring: An order was placed for continuous cardiac monitoring. The monitor shows a rate of 74 sinus rhythm Laboratory studies: As stated above and show below. Imaging studies: See below. Past Med/Surg History Medical History Sciatica of right side Osteoporosis Gait disturbance Eustachian tube dysfunction Chest pain Carpal tunnel syndrome Abnormal weight gain Spondylolisthesis, lumbar region Spinal stenosis, lumbar region, with neurogenic claudication Lumbar disc disease Surgical History History of back surgery History of carpal tunnel surgery History of Neuroplasty Decompression Median Nerve At Carpal Tunnel History of tonsillectomy and adenoidectomy History of total hysterectomy with bilateral salpingo-oophorectomy (BSO) Family History Father Coronary heart disease Arthritis Heart disease Myocardial infarction Mother Acute subdural hematoma Uncle Diabetes Brother Diabetes Sister Thyroid cancer Aunt Breast cancer Denies family history of Ovarian cancer Prostate cancer Colorectal cancer Social History Smoking Status: Never smoker Second Hand Exposure: Yes (her smoked); Do You Dip or Chew Tobacco: No; Hx Alcohol Use: No Hx Substance Use: No Preferred Language: Ukrainian Communication Ability: Effective Visual Impairment: Limited Hearing Ability: Normal Optical Instruments Supervisor Required: No Beliefs That Will Affect Care: None marital status: Current Living Situation: Family Current Living Situation Comment: daughter and her live next door current occupational status: retired 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 How many Children do You have: 5 Feels Safe at Home: Yes Childhood Exposure to Second-Hand Smoke: Yes Diet: other and regular Diet Comment: GoLo diet caffeine: No Dental Care, Regularly: No Physical Activity Frequency: Daily Seatbelt Use: always Sunscreen Use: No Assistive Devices: Cane, Denture - Upper, Denture - Lower, Glasses and Walker Allergies Allergies Allergy/AdvReac Type Severity Reaction Status Date / Time alendronate sodium Allergy Unknown CAN'T Verified 04/16/23 21:41 REMEMBER Home Meds Home Medications Medication Instructions Recorded Confirmed acetaminophen 650 mg 650 mg PO DIRECTED PRN Pain 06/10/22 04/16/23 tablet,extended release doagusc-odrhunbgptzol-eqhadqyy 250 1 tab PO Q6H PRN Headache 06/10/22 04/16/23 mg-250 mg-65 mg tablet (Excedrin Migraine) melatonin 10 mg tablet 10 mg PO HS PRN Sleep 06/10/22 04/16/23 alprazolam 0.5 mg tablet 0.5 mg PO DAILY anxiety 04/16/23 04/16/23 Previous Rx's Medication Instructions Recorded meloxicam 7.5 mg tablet 7.5 mg PO DAILY #30 tabs 12/19/22 sertraline 100 mg tablet 150 mg (1.5 x 100 mg) PO DAILY 01/20/23 #135 tabs levothyroxine 50 mcg tablet 50 mcg PO DAILY #90 tabs 02/14/23 pravastatin 20 mg tablet 20 mg PO HS #90 tabs 02/16/23 Results & Data (ED) Vital Signs Vital Signs - 24 hr 04/16/23 17:11 04/16/23 20:35 04/16/23 21:22 Temperature 36.5 C Temperature Source Temporal Artery Scan Pulse Rate 83 Pulse Rate [Left Apical] 78 74 Pulse Rate from SpO2 Sensor Pulse Rhythm Regular Pulse Strength Normal Respiratory Rate 20 24 19 Respiratory Effort / Characteristics Non-Labored Spontaneous Non-Labored Respiratory Depth Normal Normal Respiratory Pattern Regular Blood Pressure 145/72 H Blood Pressure [Right Arm] 170/92 H 180/89 H Blood Pressure Mean 96 Blood Pressure Mean [Right Arm] 118 119 Blood Pressure Position Sitting Pulse Oximetry 94 95 96 Oxygen Delivery Method Room Air Room Air Room Air Sepsis Recent Fever Within 48 Hours No Sepsis New/Unexplained Change in Mental Status No Sepsis Action Taken by Nursing No Action Required 04/16/23 21:23 04/16/23 21:24 04/16/23 21:30 Temperature Temperature Source Pulse Rate 72 72 79 Pulse Rate [Left Apical] Pulse Rate from SpO2 Sensor 72 78 Pulse Rhythm Pulse Strength Respiratory Rate 21 15 Respiratory Effort / Characteristics Respiratory Depth Respiratory Pattern Blood Pressure Blood Pressure [Right Arm] Blood Pressure Mean Blood Pressure Mean [Right Arm] Blood Pressure Position Pulse Oximetry 96 92 Oxygen Delivery Method Sepsis Recent Fever Within 48 Hours Sepsis New/Unexplained Change in Mental Status Sepsis Action Taken by Nursing 04/16/23 21:30 04/16/23 21:40 04/16/23 21:50 Temperature Temperature Source Pulse Rate 74 80 Pulse Rate [Left Apical] Pulse Rate from SpO2 Sensor 74 82 Pulse Rhythm Pulse Strength Respiratory Rate 19 20 Respiratory Effort / Characteristics Respiratory Depth Respiratory Pattern Blood Pressure 184/86 H Blood Pressure [Right Arm] Blood Pressure Mean 108 Blood Pressure Mean [Right Arm] Blood Pressure Position Pulse Oximetry 95 95 Oxygen Delivery Method Sepsis Recent Fever Within 48 Hours Sepsis New/Unexplained Change in Mental Status Sepsis Action Taken by Nursing 04/16/23 22:00 04/16/23 22:00 04/16/23 22:10 Temperature Temperature Source Pulse Rate 69 75 Pulse Rate [Left Apical] Pulse Rate from SpO2 Sensor 69 76 Pulse Rhythm Pulse Strength Respiratory Rate 16 16 Respiratory Effort / Characteristics Respiratory Depth Respiratory Pattern Blood Pressure 140/69 Blood Pressure [Right Arm] Blood Pressure Mean 115 Blood Pressure Mean [Right Arm] Blood Pressure Position Pulse Oximetry 91 92 Oxygen Delivery Method Sepsis Recent Fever Within 48 Hours Sepsis New/Unexplained Change in Mental Status Sepsis Action Taken by Nursing 04/16/23 22:21 04/16/23 22:30 04/16/23 22:30 Temperature Temperature Source Pulse Rate 113 H 78 Pulse Rate [Left Apical] Pulse Rate from SpO2 Sensor Pulse Rhythm Pulse Strength Respiratory Rate 18 18 Respiratory Effort / Characteristics Respiratory Depth Respiratory Pattern Blood Pressure 166/82 H Blood Pressure [Right Arm] Blood Pressure Mean 115 Blood Pressure Mean [Right Arm] Blood Pressure Position Pulse Oximetry Oxygen Delivery Method Sepsis Recent Fever Within 48 Hours Sepsis New/Unexplained Change in Mental Status Sepsis Action Taken by Nursing 04/16/23 22:40 Temperature Temperature Source Pulse Rate 74 Pulse Rate [Left Apical] Pulse Rate from SpO2 Sensor Pulse Rhythm Pulse Strength Respiratory Rate 20 Respiratory Effort / Characteristics Respiratory Depth Respiratory Pattern Blood Pressure Blood Pressure [Right Arm] Blood Pressure Mean Blood Pressure Mean [Right Arm] Blood Pressure Position Pulse Oximetry Oxygen Delivery Method Sepsis Recent Fever Within 48 Hours Sepsis New/Unexplained Change in Mental Status Sepsis Action Taken by Nursing Laboratory Data 04/16/23 17:40 04/16/23 17:40 Lab Results 04/16/23 Range/Units 17:40 WBC 11.78 H (4.8-10.8) K/ul RBC 4.42 (4.20-5.40) M/uL Hgb 14.2 (12.0-16.0) g/dl Hct 43.6 (37.0-47.0) % MCV 98.6 (80.0-100.0) fL MCH 32.1 (25.0-34.0) pg MCHC 32.6 (32.0-36.0) g/dL RDW Std Deviation 52.0 H (36.4-46.3) fL RDW Coeff of Wang 14.3 (11.5-14.5) % Plt Count 153 (130-400) K/uL MPV 11.5 (9.4-12.4) fL Immature Gran % (Auto) 0.5 % Neut % (Auto) 68.4 % Lymph % (Auto) 19.4 % [place] % (Auto) 10.5 % Eos % (Auto) 0.8 % Baso % (Auto) 0.4 % Neut # (Auto) 8.06 H (1.40-6.50) K/uL Lymph # (Auto) 2.28 (1.20-3.40) K/uL [place] # (Auto) 1.24 H (0.11-0.59) K/uL Eos # (Auto) 0.09 (0.00-0.50) K/uL Baso # (Auto) 0.05 (0.00-0.20) K/uL Immature Gran # (Auto) 0.06 (0.01-0.20) K/uL Sodium 138 (136-145) mmol/L Potassium 4.2 (3.5-5.1) mmol/L Chloride 104 (98-107) mmol/L Carbon Dioxide 24 (21-32) mmol/L Anion Gap 10 (3-11) BUN 23 (6-23) mg/dl Creatinine 0.85 (0.6-1.2) mg/dl Est Cr Clr Drug Dosing 48.4 ml/min Est GFR ( Amer) 72.4 ml/min Est GFR (Non-Af Amer) 62.5 ml/min BUN/Creatinine Ratio 27.1 H (10-20) Glucose 111 H (70-99(Fasting)) mg/dl Calcium 9.1 (8.6-10.3) mg/dl Total Bilirubin 0.7 (0.2-1.0) mg/dl AST 15 (13-39) U/L ALT 10 (7-52) U/L Alkaline Phosphatase 69 (34-104) U/L Total Protein 7.0 (6.0-8.3) gm/dl Albumin 4.3 (3.4-5.0) gm/dl Globulin 2.7 (2.5-4.0) gm/dl Albumin/Globulin Ratio 1.6 (0.9-2) Administered Medications Ampicillin Sodium 1,000 mg/ (Sodium Chloride) 100 mls @ 200 mls/hr IV Q6H CARLIE Stop: 04/18/23 19:29 Last Infusion: 04/16/23 21:19 Dose: Infused Documented By: Admin: 04/16/23 20:36 Dose: 200 mls/hr Documented By: MICHAEL Discontinued Medications Gadobutrol (Gadobutrol 65ml Vial) 8 ml IV ONCE ONE Stop: 04/16/23 23:27 Last Admin: 04/16/23 23:26 Dose: 8 ml Documented By: ALPESH Vancomycin HCl 1,750 mg/ (Sodium Chloride) 535 mls @ 200 mls/hr IV NOW ONE Stop: 04/16/23 22:09 Last Admin: 04/16/23 21:20 Dose: 200 mls/hr Documented By: MICHAEL Ketorolac Tromethamine (Ketorolac Tromethamine 15 Mg/Ml Vial) 15 mg IV NOW ONE Stop: 04/16/23 21:37 Last Admin: 04/16/23 21:46 Dose: 15 mg Documented By: NARENDRA Discharge Plan Visit Data Chief Complaint: Infection Stated Complaint: LT INDEX FINGER PAIN/INFECTION, FEELS HOT ED Provider: Gerardo Miramontes Discharge Problem: Flexor tenosynovitis of finger Patient Disposition: Admitted As Inpatient Discharge Instructions Interventions: ED Discharge Assessment Last Done: 04/16/23 22:50 Forms Stand Alone Forms: My [facility] [email or web address] Prescriptions Prescriptions: No Action meloxicam 7.5 mg tablet 7.5 mg PO DAILY Qty: 30 5RF sertraline 100 mg tablet 150 mg PO DAILY Qty: 135 3RF levothyroxine 50 mcg tablet 50 mcg PO DAILY Qty: 90 1RF pravastatin 20 mg tablet 20 mg PO HS Qty: 90 3RF melatonin 10 mg tablet 10 mg PO HS PRN (Reason: Sleep) Excedrin Migraine 250-250-65 mg tablet 1 tab PO Q6H PRN (Reason: Headache) acetaminophen 650 mg tablet extended release 650 mg PO DIRECTED PRN (Reason: Pain) alprazolam 0.5 mg tablet 0.5 mg PO DAILY Referrals Referrals: Enriqueta Lovett MD [Primary Care Provider] -
--- NOTE | 2023-04-16 22:18 | History & Physical Report ---
Date of Service April 16, 2023 Assessment & Plan (1) Finger infection: Plan: 87yo female presenting with pain, swelling and redness of her left index finger following a small cut sustained 3 days ago. Patient afebrile, HD stable and non-toxic in appearance. Leukocytosis with WBC=11.28. Concern for rapid progression of patient's infection - Admit to medical -Check CRP -Follow cultures -Check MRI to assess for tendon involvement, possible abscess -Continue antibiotic coverage - Vancomycin and Ceftriaxone -Tylenol as needed for pain or fever -Orthopedic Surgery consultation appreciated (2) Hypercholesterolemia: Plan: Chronic. Stable -Continue Pravastatin 20mg po qHS (3) Hypothyroidism: Plan: Chronic. Stable. TSH normal at 1.887 in October 2022. -Continue home dose of Synthroid History of Present Illness Chief Complaint: infection left 1st finger Primary Care Provider: Enriqueta Lovett MD Ayesha Aquino is an 87yo female with history of HLP, HTN, Hypothyroidism presenting with infection of left index finger. Patient was making holiday wreaths on 04/13/23 when she sustained a small cut to her finger - left index finger near the PIP joint. She washed out the cut, put antibiotic ointment on it and covered it with a bandage. On 04/15/23 she began noticing increased redness, swelling and pain in her left index finger which has steadily increased. She now has some increased discomfort and redness involving her middle finger and the palmar surface of her hand. She is having difficulty bending her fingers. She denies fever, chills, nausea, vomiting. Pain is well controlled at this time. ER Course: Vancomycin Unasyn Toradol Allergies Allergy/AdvReac Type Severity Reaction Status Date / Time alendronate sodium Allergy Unknown CAN'T Verified 04/16/23 21:41 REMEMBER Home Medications Medication Instructions Recorded Confirmed Type acetaminophen 650 mg 650 mg PO DIRECTED PRN Pain 06/10/22 04/16/23 History tablet,extended release jherztt-wkfstehkroezl-rwpcvztw 250 1 tab PO Q6H PRN Headache 06/10/22 04/16/23 History mg-250 mg-65 mg tablet (Excedrin Migraine) melatonin 10 mg tablet 10 mg PO HS PRN Sleep 06/10/22 04/16/23 History meloxicam 7.5 mg tablet 7.5 mg PO DAILY #30 tabs 12/19/22 04/16/23 Rx sertraline 100 mg tablet 150 mg (1.5 x 100 mg) PO DAILY 01/20/23 04/16/23 Rx #135 tabs levothyroxine 50 mcg tablet 50 mcg PO DAILY #90 tabs 02/14/23 04/16/23 Rx pravastatin 20 mg tablet 20 mg PO HS #90 tabs 02/16/23 04/16/23 Rx alprazolam 0.5 mg tablet 0.5 mg PO DAILY anxiety 04/16/23 04/16/23 History Past Med/Surg History Medical History Sciatica of right side Osteoporosis Gait disturbance Eustachian tube dysfunction Chest pain Carpal tunnel syndrome Abnormal weight gain Spondylolisthesis, lumbar region Spinal stenosis, lumbar region, with neurogenic claudication Lumbar disc disease Surgical History History of back surgery History of carpal tunnel surgery History of Neuroplasty Decompression Median Nerve At Carpal Tunnel History of tonsillectomy and adenoidectomy History of total hysterectomy with bilateral salpingo-oophorectomy (BSO) Family History Father Coronary heart disease Arthritis Heart disease Myocardial infarction Mother Acute subdural hematoma Uncle Diabetes Brother Diabetes Sister Thyroid cancer Aunt Breast cancer Denies family history of Ovarian cancer Prostate cancer Colorectal cancer Social History Smoking Status: Never smoker Second Hand Exposure: Yes (her smoked); Do You Dip or Chew Tobacco: No; Hx Alcohol Use: No Hx Substance Use: No Preferred Language: Bulgarian Communication Ability: Effective Visual Impairment: Limited Hearing Ability: Normal Supervisor Dental Laboratory Required: No Beliefs That Will Affect Care: None marital status: Current Living Situation: Family Current Living Situation Comment: daughter and her live next door current occupational status: retired 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 How many Children do You have: 5 Feels Safe at Home: Yes Childhood Exposure to Second-Hand Smoke: Yes Diet: other and regular Diet Comment: GoLo diet caffeine: No Dental Care, Regularly: No Physical Activity Frequency: Daily Seatbelt Use: always Sunscreen Use: No Assistive Devices: Cane, Denture - Upper, Denture - Lower, Glasses and Walker Review of Systems Review of Systems: All systems reviewed & are unremarkable except as noted in HPI & below Physical Exam Physical Exam: General: patient resting comfortably, NAD, non-toxic in appearance, AA&O x 4 Skin: warm, dry, intact, no rashes or lesions HEENT: NC/AT, PERRL, EOMI, anicteric sclera, conjunctiva without injection, external ear normal to inspection and nontender, nares patent, moist mucus membranes, dentition intact, no oropharyngeal lesions, neck supple, trachea midline, no LAD, no thyromegaly, no JVD Heart: +S1/S2, regular, no m/r/g Lungs: equal air entry bilaterally, no rales/rhonchi/wheezes Abd: +BS, soft, NT/ND, no masses/organomegaly/ascites Ext: warm, 2+ pulses in UE/LE bilaterally, redness and swelling of left index finger, erythema and some swelling of palmar surface and portion of left middle finger as well. Tenderness over flexor surface Neuro: nonfocal, patient AA&O x 4, speech intact, no facial droop, moving all extremities on command with equal strength 5/5 Results & Data Results & Data Vital Signs (Past 12 Hours) Vital Signs Temp Pulse Pulse Resp BP BP Pulse Ox 04/16/23 21:22 74 19 180/89 H 96 04/16/23 20:35 78 24 170/92 H 95 04/16/23 17:11 36.5 C 83 20 145/72 H 94 O2 Del Method 04/16/23 21:22 Room Air 04/16/23 20:35 Room Air 04/16/23 17:11 Room Air Laboratory Results Laboratory Results WBC 11.78 K/ul (4.8-10.8) H 04/16/23 17:40 RBC 4.42 M/uL (4.20-5.40) 04/16/23 17:40 Hgb 14.2 g/dl (12.0-16.0) 04/16/23 17:40 Hct 43.6 % (37.0-47.0) 04/16/23 17:40 MCV 98.6 fL (80.0-100.0) 04/16/23 17:40 MCH 32.1 pg (25.0-34.0) 04/16/23 17:40 MCHC 32.6 g/dL (32.0-36.0) 04/16/23 17:40 RDW Std Deviation 52.0 fL (36.4-46.3) H 04/16/23 17:40 RDW Coeff of Wang 14.3 % (11.5-14.5) 04/16/23 17:40 Plt Count 153 K/uL (130-400) 04/16/23 17:40 MPV 11.5 fL (9.4-12.4) 04/16/23 17:40 Immature Gran % (Auto) 0.5 % 04/16/23 17:40 Neut % (Auto) 68.4 % 04/16/23 17:40 Lymph % (Auto) 19.4 % 04/16/23 17:40 [place] % (Auto) 10.5 % 04/16/23 17:40 Eos % (Auto) 0.8 % 04/16/23 17:40 Baso % (Auto) 0.4 % 04/16/23 17:40 Neut # (Auto) 8.06 K/uL (1.40-6.50) H 04/16/23 17:40 Lymph # (Auto) 2.28 K/uL (1.20-3.40) 04/16/23 17:40 [place] # (Auto) 1.24 K/uL (0.11-0.59) H 04/16/23 17:40 Eos # (Auto) 0.09 K/uL (0.00-0.50) 04/16/23 17:40 Baso # (Auto) 0.05 K/uL (0.00-0.20) 04/16/23 17:40 Immature Gran # (Auto) 0.06 K/uL (0.01-0.20) 04/16/23 17:40 Sodium 138 mmol/L (136-145) 04/16/23 17:40 Potassium 4.2 mmol/L (3.5-5.1) 04/16/23 17:40 Chloride 104 mmol/L (98-107) 04/16/23 17:40 Carbon Dioxide 24 mmol/L (21-32) 04/16/23 17:40 Anion Gap 10 (3-11) 04/16/23 17:40 BUN 23 mg/dl (6-23) 04/16/23 17:40 Creatinine 0.85 mg/dl (0.6-1.2) 04/16/23 17:40 Est Cr Clr Drug Dosing 48.4 ml/min 04/16/23 17:40 Est GFR ( Amer) 72.4 ml/min 04/16/23 17:40 Est GFR (Non-Af Amer) 62.5 ml/min 04/16/23 17:40 BUN/Creatinine Ratio 27.1 (10-20) H 04/16/23 17:40 Glucose 111 mg/dl (70-99(Fasting)) H 04/16/23 17:40 Calcium 9.1 mg/dl (8.6-10.3) 04/16/23 17:40 Total Bilirubin 0.7 mg/dl (0.2-1.0) 04/16/23 17:40 AST 15 U/L (13-39) 04/16/23 17:40 ALT 10 U/L (7-52) 04/16/23 17:40 Alkaline Phosphatase 69 U/L (34-104) 04/16/23 17:40 Total Protein 7.0 gm/dl (6.0-8.3) 04/16/23 17:40 Albumin 4.3 gm/dl (3.4-5.0) 04/16/23 17:40 Globulin 2.7 gm/dl (2.5-4.0) 04/16/23 17:40 Albumin/Globulin Ratio 1.6 (0.9-2) 04/16/23 17:40 Diagnostic Findings Xray left finger - per my interpretation, no fracture or foreign body present PG Care Time/CCT Total # of Minutes Spent Total Time Spent with Patient: Total time spent is greater than 50% in coordination of care (as documented) at patient's floor/unit and/or counseling patient: Coding Level of Care Code 59097 INT INP/OBS CARE 2/55MIN Diagnoses Finger infection L08.9 Hypercholesterolemia E78.00 Hypothyroidism E03.9
[2023-04-16] MEDS ORDERED: MELATONIN 3 MG TAB PO ONE (22:19)
[2023-04-16] MEDS ORDERED: GADOBUTROL 65ML VIAL IV ONE (23:26)
[2023-04-17] MEDS ORDERED: VANCOMYCIN HCL 1,000 MG in SODIUM CHLORIDE 0.9% 250 ML IV SCH (00:01)
[2023-04-17] MEDS ORDERED: VANCOMYCIN CONSULT ACTIVE PRN (00:01)
[2023-04-17 00:24] LABS: C Reactive Protein 9.38 mg/dl (0-0.5)
[2023-04-17] MEDS: cefTRIAXone SODIUM 2,000 MG in DEXTROSE 5 % MINI-B 50 ML IV SCH (01:48)
--- NOTE | 2023-04-17 02:06 | Magnetic Resonance Report ---
Exam(s): MRI LEFT HAND W/WO Contrast IV Amt: 8cc gadavist EXAM: MR Left Upper Extremity Without and With Intravenous Contrast, Hand CLINICAL HISTORY: Reason for exam: infection 1st digit. TECHNIQUE: Multiplanar magnetic resonance images of the left hand without and with intravenous contrast. CONTRAST: Patient received 8cc gadavist of IV contrast COMPARISON: No relevant prior studies available. FINDINGS: LIGAMENTS: Medial collateral: Unremarkable. Lateral collateral: Unremarkable. Radial collateral: Unremarkable. Ulnar collateral: Unremarkable. TENDONS: Flexor: Unremarkable. Extensor: Unremarkable. Muscles: Unremarkable. Fluid: Unremarkable. No fluid collection or abscess. Cartilage: Unremarkable. Bones/joints: Unremarkable. No MR evidence of osteomyelitis. Soft tissues: Circumferential subcutaneous edema of the index finger, concerning for cellulitis. No definite flexor or extensor tenosynovitis. IMPRESSION: 1. No MR evidence of osteomyelitis. 2. No fluid collection or abscess. 3. Circumferential subcutaneous edema of the index finger, concerning for cellulitis. No definite flexor or extensor tenosynovitis. Electronically signed by: Noah Manjarrez MD 04/17/23 02:05 AM
[2023-04-17] MEDS: LEVOTHYROXINE SODIUM 50 MCG TABLET PO SCH (05:46)
--- NOTE | 2023-04-17 06:52 | Orthopedic Consultation ---
Date of Consultation April 17, 2023 Assessment & Plan (1) Finger infection: Cellulitis left index finger. Patient was given a dose of vancomycin as well as ampicillin in the emergency room. She was then started on Rocephin and vancomycin per the hospitalist team. She is already seeing some noticeable results in color in her finger. She states that the swelling continues. Continue IV antibiotics for now. Re assess in 24 hours. Elevation of the left hand up on at least 2 pillows. Ice as ne eded. Case discussed with Dr Mccord. Will recheck in 24 hours to see how she is progressing. If she is not progressing, plan for washout per Dr Mccord. Pt may eat today and be NPO after midnight tonight. History of Present Illness Reason for Consultation: Cellulitis left index finger Attending Physician: Catherine Salcido DO History of Present Illness 87-year-old female, right hand dominant, with history of experiencing a small laceration over the dorsum of her left index finger approximally 2-3 days ago, just distal to the PIP joint. At that time, the patient cleansed the wound with soap and water and then put antibiotic ointment on the cut. A small bandage was then placed over it. Over the next day or so she noticed some increased swelling and erythema around the cut and continued to worsen. Soon the whole finger was swollen and she was noticing some increased erythema going up into her hand and she came to the emergency room. She was seen by the staff. It was felt that she should be admitted for IV antibiotics and she was admitted by the hospitalist service. We have been asked to see her for her cellulitis. Currently she states that the finger is feeling a little bit better. Nursing is also present and states that they have noticed a difference since the start of antibiotics. Patient and nursing state that the finger was swollen to the point it looked purple but the color is much better now. No other new complaints Allergies Allergy/AdvReac Type Severity Reaction Status Date / Time alendronate sodium Allergy Unknown CAN'T Verified 04/16/23 21:41 REMEMBER Home Medications Medication Instructions Recorded Confirmed Type acetaminophen 650 mg 650 mg PO DIRECTED PRN Pain 06/10/22 04/16/23 History tablet,extended release pqemopz-lqhyaisalhhct-xflgpgoq 250 1 tab PO Q6H PRN Headache 06/10/22 04/16/23 History mg-250 mg-65 mg tablet (Excedrin Migraine) melatonin 10 mg tablet 10 mg PO HS PRN Sleep 06/10/22 04/16/23 History meloxicam 7.5 mg tablet 7.5 mg PO DAILY #30 tabs 12/19/22 04/16/23 Rx sertraline 100 mg tablet 150 mg (1.5 x 100 mg) PO DAILY 01/20/23 04/16/23 Rx #135 tabs levothyroxine 50 mcg tablet 50 mcg PO DAILY #90 tabs 02/14/23 04/16/23 Rx pravastatin 20 mg tablet 20 mg PO HS #90 tabs 02/16/23 04/16/23 Rx alprazolam 0.5 mg tablet 0.5 mg PO DAILY anxiety 04/16/23 04/16/23 History Patient History Medical History Sciatica of right side Osteoporosis Gait disturbance Eustachian tube dysfunction Chest pain Carpal tunnel syndrome Abnormal weight gain Spondylolisthesis, lumbar region Spinal stenosis, lumbar region, with neurogenic claudication Lumbar disc disease Surgical History History of back surgery History of carpal tunnel surgery History of Neuroplasty Decompression Median Nerve At Carpal Tunnel History of tonsillectomy and adenoidectomy History of total hysterectomy with bilateral salpingo-oophorectomy (BSO) Family History Father Coronary heart disease Arthritis Heart disease Myocardial infarction Mother Acute subdural hematoma Uncle Diabetes Brother Diabetes Sister Thyroid cancer Aunt Breast cancer Denies family history of Ovarian cancer Prostate cancer Colorectal cancer Social History Smoking Status: Never smoker Second Hand Exposure: Yes (her smoked); Do You Dip or Chew Tobacco: No; Hx Alcohol Use: Yes Alcohol type: wine Hx Substance Use: No Preferred Language: Thai Communication Ability: Effective Visual Impairment: Limited Hearing Ability: Normal Maintenance Clerk Required: No Beliefs That Will Affect Care: None marital status: Current Living Situation: Family Current Living Situation Comment: lives in split home with daughter and son-in-law living on the other side current occupational status: retired 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 She is alert and oriented x3. No acute distress. Pleasant cooperative. On examination of her left hand, she has some noticeable swelling over the second and third MP joints with mild erythema noted. A well-healed laceration about 8 mm in length is noted just distal to the PIP joint over the dorsum of the finger. She has mode erythema of the index finger at this time on the dorsal and volar aspect which extends just proximal into the palmar aspect of the hand. She is able to extend the finger but she at this time, is unable to flex the finger secondary to swelling and pain. She has pain on palpation of the entire index finger at this time. She has some swelling of the volar aspect of the third finger close to the MP joint which is tender on palpation. She has mild pain with flexion but none with extension. Palpation of the palmar aspect shows pain just proximal to the MP joints of the second and third fingers. She has mild pain on palpation close to the first MP joint stopping just short of the thenar eminence. She has good range of motion of her thumb as well as her fourth and fifth fingers. She has some slight decreased flexion of the third finger but can almost completely flex the finger at this time. She has full extension of the fingers at this time. She has good range of motion of her left wrist without discomfort. Forearm is nontender at this time. Decree sensation of the index finger at this time with ssii-bcg-[id number] feeling. Capillary refill is less than 2 seconds Results & Data Vital Signs (Past 12 Hours) Vital Signs Temp Pulse Pulse Pulse Resp BP BP 04/17/23 00:10 37.1 C 79 20 160/88 H 12/03/23 22:40 74 20 04/16/23 22:30 166/82 H 04/16/23 22:30 78 18 04/16/23 22:21 113 H 18 04/16/23 22:10 75 16 04/16/23 22:00 140/69 04/16/23 22:00 69 16 04/16/23 21:50 80 20 04/16/23 21:40 74 19 04/16/23 21:30 184/86 H 04/16/23 21:30 79 15 04/16/23 21:24 72 21 04/16/23 21:23 72 04/16/23 21:22 74 19 180/89 H 04/16/23 20:35 78 24 170/92 H Pulse Ox O2 Del Method 04/17/23 00:10 95 Room Air 04/16/23 22:40 04/16/23 22:30 04/16/23 22:30 04/16/23 22:21 04/16/23 22:10 92 04/16/23 22:00 04/16/23 22:00 91 04/16/23 21:50 95 04/16/23 21:40 95 04/16/23 21:30 04/16/23 21:30 92 04/16/23 21:24 96 04/16/23 21:23 04/16/23 21:22 96 Room Air 04/16/23 20:35 95 Room Air Laboratory Results Laboratory Results WBC 11.78 K/ul (4.8-10.8) H 04/16/23 17:40 RBC 4.42 M/uL (4.20-5.40) 04/16/23 17:40 Hgb 14.2 g/dl (12.0-16.0) 04/16/23 17:40 Hct 43.6 % (37.0-47.0) 04/16/23 17:40 MCV 98.6 fL (80.0-100.0) 04/16/23 17:40 MCH 32.1 pg (25.0-34.0) 04/16/23 17:40 MCHC 32.6 g/dL (32.0-36.0) 04/16/23 17:40 RDW Std Deviation 52.0 fL (36.4-46.3) H 04/16/23 17:40 RDW Coeff of Wang 14.3 % (11.5-14.5) 04/16/23 17:40 Plt Count 153 K/uL (130-400) 04/16/23 17:40 MPV 11.5 fL (9.4-12.4) 04/16/23 17:40 Immature Gran % (Auto) 0.5 % 04/16/23 17:40 Neut % (Auto) 68.4 % 04/16/23 17:40 Lymph % (Auto) 19.4 % 04/16/23 17:40 Alexander % (Auto) 10.5 % 04/16/23 17:40 Eos % (Auto) 0.8 % 04/16/23 17:40 Baso % (Auto) 0.4 % 04/16/23 17:40 Neut # (Auto) 8.06 K/uL (1.40-6.50) H 04/16/23 17:40 Lymph # (Auto) 2.28 K/uL (1.20-3.40) 04/16/23 17:40 Alexander # (Auto) 1.24 K/uL (0.11-0.59) H 04/16/23 17:40 Eos # (Auto) 0.09 K/uL (0.00-0.50) 04/16/23 17:40 Baso # (Auto) 0.05 K/uL (0.00-0.20) 04/16/23 17:40 Immature Gran # (Auto) 0.06 K/uL (0.01-0.20) 04/16/23 17:40 Sodium 138 mmol/L (136-145) 04/16/23 17:40 Potassium 4.2 mmol/L (3.5-5.1) 04/16/23 17:40 Chloride 104 mmol/L (98-107) 04/16/23 17:40 Carbon Dioxide 24 mmol/L (21-32) 04/16/23 17:40 Anion Gap 10 (3-11) 04/16/23 17:40 BUN 23 mg/dl (6-23) 04/16/23 17:40 Creatinine 0.85 mg/dl (0.6-1.2) 04/16/23 17:40 Est Cr Clr Drug Dosing 48.4 ml/min 04/16/23 17:40 Est GFR ( Amer) 72.4 ml/min 04/16/23 17:40 Est GFR (Non-Af Amer) 62.5 ml/min 04/16/23 17:40 BUN/Creatinine Ratio 27.1 (10-20) H 04/16/23 17:40 Glucose 111 mg/dl (70-99(Fasting)) H 04/16/23 17:40 Calcium 9.1 mg/dl (8.6-10.3) 04/16/23 17:40 Total Bilirubin 0.7 mg/dl (0.2-1.0) 04/16/23 17:40 AST 15 U/L (13-39) 04/16/23 17:40 ALT 10 U/L (7-52) 04/16/23 17:40 Alkaline Phosphatase 69 U/L (34-104) 04/16/23 17:40 C-Reactive Protein 9.38 mg/dl (0-0.5) H 04/16/23 17:40 Total Protein 7.0 gm/dl (6.0-8.3) 04/16/23 17:40 Albumin 4.3 gm/dl (3.4-5.0) 04/16/23 17:40 Globulin 2.7 gm/dl (2.5-4.0) 04/16/23 17:40 Albumin/Globulin Ratio 1.6 (0.9-2) 04/16/23 17:40 Impressions Hand MRI 04/16/23 22:18 Exam(s): MRI LEFT HAND W/WO Contrast IV Amt: 8cc gadavist EXAM: MR Left Upper Extremity Without and With Intravenous Contrast, Hand CLINICAL HISTORY: Reason for exam: infection 1st digit. TECHNIQUE: Multiplanar magnetic resonance images of the left hand without and with intravenous contrast. CONTRAST: Patient received 8cc gadavist of IV contrast COMPARISON: No relevant prior studies available. FINDINGS: LIGAMENTS: Medial collateral: Unremarkable. Lateral collateral: Unremarkable. Radial collateral: Unremarkable. Ulnar collateral: Unremarkable. TENDONS: Flexor: Unremarkable. Extensor: Unremarkable. Muscles: Unremarkable. Fluid: Unremarkable. No fluid collection or abscess. Cartilage: Unremarkable. Bones/joints: Unremarkable. No MR evidence of osteomyelitis. Soft tissues: Circumferential subcutaneous edema of the index finger, concerning for cellulitis. No definite flexor or extensor tenosynovitis. IMPRESSION: 1. No MR evidence of osteomyelitis. 2. No fluid collection or abscess. 3. Circumferential subcutaneous edema of the index finger, concerning for cellulitis. No definite flexor or extensor tenosynovitis. Electronically signed by: Noah Manjarrez MD 04/17/23 02:05 AM
[2023-04-17 07:45] LABS: Hematocrit (blood only) 40.1 % (37.0-47.0); Hemoglobin 13.3 g/dl (12.0-16.0); Mean Corpuscular Hemoglobin 32.5 pg (25.0-34.0); Mean Corpuscular Hgb Conc 33.2 g/dL (32.0-36.0); Mean Platelet Volume 11.6 fL (9.4-12.4); Platelet Count 148 K/uL (130-400); RDW Coefficient of Variation 14.3 % (11.5-14.5); RDW Standard Deviation 51.6 fL (36.4-46.3); Red Blood Count 4.09 M/uL (4.20-5.40); White Blood Count 9.89 K/ul (4.8-10.8)
[2023-04-17 08:06] LABS: Calcium 8.8 mg/dl (8.6-10.3); Creatinine Clr Calc Pharmacy 54.7 ml/min; Est GFR (African American) 84.2 ml/min; Est GFR (Non-African American) 72.7 ml/min; Potassium 4.1 mmol/L (3.5-5.1)
--- NOTE | 2023-04-17 08:07 | XRay Report ---
XR finger(s) LT min 2V CLINICAL HISTORY: foreign body/infection TECHNIQUE: 3 views of the left second digit were obtained. Comparison: None available at the time of this dictation. FINDINGS: There is no evidence of an acute fracture. Degenerative changes are seen in the joints. Soft tissue s welling is seen about the digit. IMPRESSION: Soft tissue swelling without evidence of underlying acute fracture. No radiodense foreign body is see n. ACT 112: Negative or not required by law. Electronically signed by: Jose Guadalupe Thomas M.D. 04/17/2023 8:06 AM
[2023-04-17] MEDS: ALPRAZolam 0.5 MG TABLET PO SCH (08:16)
[2023-04-17] MEDS: VANCOMYCIN HCL 1,250 MG in SODIUM CHLORIDE 0.9% 250 ML IV SCH ×2 (08:16→19:32)
[2023-04-17] MEDS: SERTRALINE HCL 50 MG TABLET PO SCH (08:16)
[2023-04-17] MEDS: ACETAMINOPHEN 325 MG TAB PO PRN ×3 (08:23→23:47)
--- NOTE | 2023-04-17 10:35 | Pharmacy Report ---
Pharmacy PK ABX Note - Date of Service April 17, 2023 - Assessment and Plan Assessment 87 year old F receiving Vancomycin and Ceftriaxone for treatment of finger cellulitis. * Day #1 of antimicrobial therapy. * Afebrile. Leukocytosis resolved. SCr 0.75 mg/dL, normal. * Imaging shows no evidence of osteomyelitis or tenosynovitis per radiology reports. Plan Vancomycin * Loading dose: 1750 mg IV x 1 * Maintenance dose: 1250 mg IV every 24 hours * Regimen is predicted to achieve target AUC/ARELI of 400-600 mg/L.hr * Random level ordered for: 04/19/23 Ceftriaxone * 2000 mg IV every 24 hours Pharmacy will continue to follow and will adjust dose/frequency as necessary. Thank you. Pharmacy has transitioned to AUC monitoring for vancomycin. AUC/ARELI is the preferred PK/PD target and is associated with decreased risk of nephrotoxicity compared to traditional trough targets.
--- NOTE | 2023-04-17 10:55 | Hospitalist Progress Note ---
Date of Service April 17, 2023 Assessment & Plan (1) Finger infection: Plan: 87yo female presenting with pain, swelling and redness of her left index finger following a small cut sustained 04/13.0 - 04/16 MRI: Circumferential subcutaneous edema of the index finger, concerning for cellulitis. No definite flexor or extensor tenosynovitis. -Remains afebrile. WBC downtrending to 9.89 -CRP 9.3 -Follow cultures - not drawn on admission, pt has already received 4 doses of abx. Will hold off on drawing cultures now, but if signs of infection progressing will obtain -Continue antibiotic coverage - Vancomycin and Ceftriaxone -Tylenol as needed for pain or fever -Orthopedic Surgery consulted - Conservative measures with IV abx for now, reevaluate in 24 hours - NPO at midnight incase of need for procedure (2) Hypercholesterolemia: Plan: Chronic. Stable -Continue Pravastatin 20mg po qHS (3) Hypothyroidism: Plan: Stable. 10/2022:TSH 1.887 -Continue home dose of Synthroid Plan Continued inpatient stay NPO at midnight Admission and Anticipated Discharge Date Admission Date: April 16, 2023 Subjective 1030 - Patient lying in bed, daughter present in the room. Reports that her pain is well controlled with medication. States that finger is about the same, redness has maybe decreased slightly, but swelling has remained the same. Rep orts there are areas that are now getting hard from the swelling. Denies fevers/chills. Reports that Monday her finger was swollen and continued to get worse. Has not used ice here, but was using this at home. She is right handeded. Reports good appetite and is ambulating without issue when not hooked up to the IV. Denies CP or SOB. Review of Systems Review of Systems: All systems reviewed & are unremarkable except as noted in Subjective Physical Exam Physical Exam: General: WN/WD, NAD, VS as above Resp: normal respiratory effort, lungs clear to auscultation CV: RRR, no murmur, no edema Abd: normal bowel sounds, non tender, no hepatosplenomegaly Extremities: left hand: extensive swelling 2nd digit with circumferential erythema - worse at DIP joint. Sensation intact. Very limited ROM. Mild edema distal 3rd digit and into palm. Neuro: A&O x3, Skin: Left hand as above, no further lesions noted Results & Data Results & Data Vital Signs (Past 12 Hours) Vital Signs Temp Pulse Resp BP Pulse Ox O2 Del Method 04/17/23 07:37 37.5 C 76 19 138/78 93 Room Air 04/17/23 00:10 37.1 C 79 20 160/88 H 95 Room Air Laboratory Results CBC and BMP reviewed PG Care Time/CCT Total # of Minutes Spent Total Time Spent with Patient: Total time spent is greater than 50% in coordination of care (as documented) at patient's floor/unit and/or counseling patient: Coding Level of Care Code 16900 SUB INP/OBS CARE 2/35MIN Diagnoses Finger infection L08.9 Hypercholesterolemia E78.00 Hypothyroidism E03.9
[2023-04-17] MEDS: PRAVASTATIN SOD 20 MG TAB PO SCH (19:41)
[2023-04-18] MEDS: MELATONIN 3 MG TAB PO PRN (00:13)
[2023-04-18] MEDS: cefTRIAXone SODIUM 2,000 MG in DEXTROSE 5 % MINI-B 50 ML IV SCH (01:49)
[2023-04-18] MEDS: LEVOTHYROXINE SODIUM 50 MCG TABLET PO SCH (05:32)
[2023-04-18 07:10] LABS: Basophils # (auto) 0.04 K/uL (0.00-0.20); Basophils % (auto) 0.4 %; Eosinophils # (auto) 0.11 K/uL (0.00-0.50); Eosinophils % (auto) 1.1 %; Hematocrit (blood only) 40.3 % (37.0-47.0); Hemoglobin 13.2 g/dl (12.0-16.0); Immature Granulocytes # (auto) 0.05 K/uL (0.01-0.20); Immature Granulocytes % (auto) 0.5 %; Lymphocytes # (auto) 1.85 K/uL (1.20-3.40); Lymphocytes % (auto) 19.3 %; Mean Corpuscular Hemoglobin 32.4 pg (25.0-34.0); Mean Corpuscular Hgb Conc 32.8 g/dL (32.0-36.0); Monocytes # (auto) 1.15 K/uL (0.11-0.59); Neutrophils % (auto) 66.7 %; Platelet Count 148 K/uL (130-400); RDW Coefficient of Variation 14.4 % (11.5-14.5); Red Blood Count 4.07 M/uL (4.20-5.40)
[2023-04-18 07:34] LABS: BUN Creatinine Ratio 33.3 (10-20); Calcium 8.8 mg/dl (8.6-10.3); Creatinine Clr Calc Pharmacy 62.1 ml/min; Est GFR (African American) 93.4 ml/min; Est GFR (Non-African American) 80.6 ml/min
[2023-04-18] MEDS: SERTRALINE HCL 50 MG TABLET PO SCH (08:55)
[2023-04-18] MEDS: ALPRAZolam 0.5 MG TABLET PO SCH (08:59)
[2023-04-18] MEDS: ACETAMINOPHEN 325 MG TAB PO PRN ×2 (08:59→18:11)
--- NOTE | 2023-04-18 09:57 | Hospitalist Progress Note ---
Date of Service April 18, 2023 Assessment & Plan (1) Finger infection: Plan: 87yo female presenting with pain, swelling and redness of her left index finger following a small cut sustained 04/13.0 - 04/16 MRI: Circumferential subcutaneous edema of the index finger, concerning for cellulitis. No definite flexor or extensor tenosynovitis. -Remains afebrile. WBC downtrending to 9.89 -CRP 9.3 -Follow cultures - not drawn on admission, pt has already received 4 doses of abx. Will hold off on drawing cultures now. - Febrile PM 04/17, infection progession, pt feeling worse --> blood cultures ordered 04/18 -Continue antibiotic coverage - Vancomycin and Ceftriaxone -Tylenol as needed for pain or fever -Orthopedic Surgery consulted -Plan for I&D Septic Flexor Tenosynovitis 04/[address] Mccord (2) Hypercholesterolemia: Plan: Chronic. Stable -Continue Pravastatin 20mg po qHS (3) Hypothyroidism: Plan: Stable. 10/2022:TSH 1.887 -Continue home dose of Synthroid Plan Continued inpatient stay Admission and Anticipated Discharge Date Admission Date: April 16, 2023 Subjective 0935 - Patient seen lying in bed. Reports feeling lousy because she did not sleep well last night. Feels that her finger is progressing and she is now is not loosing ROM in her third finger. states saw the ortho PA this morning and planning to go to the OR this afternoon. Denies fevers or chills. has been getting up to the bathroom with no issues. No CP or SOB. Review of Systems Review of Systems: All systems reviewed & are unremarkable except as noted in Subjective Physical Exam Physical Exam: General: WN/WD, NAD, VS as above Resp: normal respiratory effort, lungs clear to auscultation CV: RRR, no murmur, no edema Abd: non tender, no hepatosplenomegaly Extremities: left hand: extensive swelling 2nd digit with circumferential erythema - worse today, almost entire finger is bright red. Sensation intact. No ROM on the 2nd digit and decreased range of motion to 3rd digit. Moderate edema distal 3rd digit and into palm. Neuro: A&O x3, Skin: Left hand as above, no further lesions noted Results & Data Results & Data Vital Signs (Past 12 Hours) Vital Signs Temp Pulse Resp BP Pulse Ox O2 Del Method 04/18/23 07:16 36.7 C 68 18 149/71 H 95 Room Air Laboratory Results CBC and Chemistry reviewed PG Care Time/CCT Total # of Minutes Spent Total Time Spent with Patient: Total time spent is greater than 50% in coordination of care (as documented) at patient's floor/unit and/or counseling patient: Coding Level of Care Code 72802 SUB INP/OBS CARE 2/35MIN Diagnoses Finger infection L08.9 Hypercholesterolemia E78.00 Hypothyroidism E03.9
[2023-04-18] MEDS: VANCOMYCIN HCL 750 MG in SODIUM CHLORIDE 0.9% 250 ML IV SCH ×2 (10:06→19:57)
--- NOTE | 2023-04-18 10:44 | Anesthesiology Consultation ---
Date of Service April 18, 2023 Assessment & Plan (1) Encounter for pre-operative examination: Chart Review Chart Review: Acceptable Risk for Surgery and Patient NOT seen in Pre Admission Testing will order preop ECG if one not already done Consults Requested none History Surgery Operation Date: 04/18/23 08:20 Proposed Procedures p Left Index Finger Incision and Drainage Septic Flexor Tenosynovitis - Cipriano Mccord MD Height/Weight Height: 5 ft 2 in Weight: 82.7 kg Allergies Allergy/AdvReac Type Severity Reaction Status Date / Time alendronate sodium Allergy Unknown CAN'T Verified 04/16/23 21:41 REMEMBER Medications Home Medications Medication Instructions Recorded Confirmed Last Taken acetaminophen 650 mg 650 mg PO DIRECTED PRN Pain 06/10/22 04/16/23 Unknown tablet,extended release zxpcypp-fgoevlecobpgj-rzgdbdqy 250 1 tab PO Q6H PRN Headache 06/10/22 04/16/23 Unknown mg-250 mg-65 mg tablet (Excedrin Migraine) melatonin 10 mg tablet 10 mg PO HS PRN Sleep 06/10/22 04/16/23 Unknown meloxicam 7.5 mg tablet 7.5 mg PO DAILY #30 tabs 12/19/22 04/16/23 04/16/23 sertraline 100 mg tablet 150 mg (1.5 x 100 mg) PO DAILY 01/20/23 04/16/23 04/16/23 #135 tabs levothyroxine 50 mcg tablet 50 mcg PO DAILY #90 tabs 02/14/23 04/16/23 04/16/23 pravastatin 20 mg tablet 20 mg PO HS #90 tabs 02/16/23 04/16/23 04/15/23 alprazolam 0.5 mg tablet 0.5 mg PO DAILY anxiety 04/16/23 04/16/23 04/16/23 Active Medications Generic Name Dose Route Start Last Admin Trade Name Freq PRN Reason Stop Dose Admin Acetaminophen 650 mg 04/17/23 00:01 04/18/23 08:59 Acetaminophen 325 Mg Tab PO 05/17/23 00:00 650 mg Q4H PRN Administration Pain or Fever Alprazolam 0.5 mg 04/17/23 09:00 04/18/23 08:59 Alprazolam 0.5 Mg Tablet PO 05/17/23 08:59 0.5 mg DAILY CARLIE Administration Ceftriaxone Sodium 2,000 mg/ 50 mls @ 100 mls/hr 04/17/23 02:00 04/18/23 02:26 Dextrose IV 04/24/23 01:59 Infused Q24H CARLIE Infusion Protocol Vancomycin HCl 750 mg/ Sodium 265 mls @ 200 mls/hr 04/18/23 09:15 04/18/23 10:06 Chloride IV 04/25/23 09:14 200 mls/hr Q12H CARLIE Administration Levothyroxine Sodium 50 mcg 04/17/23 06:30 04/18/23 05:32 Levothyroxine Sodium 50 Mcg Tablet PO 05/17/23 06:29 50 mcg DAILYBB CARLIE Administration Melatonin 3 mg 04/17/23 23:56 04/18/23 00:13 Melatonin 3 Mg Tab PO 05/17/23 23:55 3 mg HS PRN Administration Sleep Pravastatin Sodium 20 mg 04/17/23 21:00 04/17/23 19:41 Pravastatin Sod 20 Mg Tab PO 05/17/23 20:59 20 mg HS CARLIE Administration Sertraline HCl 150 mg 04/17/23 09:00 04/18/23 08:55 Sertraline Hcl 50 Mg Tablet PO 05/17/23 08:59 150 mg DAILY CARLIE Administration Past Medical History Medical History (Updated 04/18/23 @ 10:44 by Mike Hogue MD) Encounter for pre-operative examination Hypertension Sciatica of right side Osteoporosis Gait disturbance Eustachian tube dysfunction Chest pain Carpal tunnel syndrome Abnormal weight gain Spondylolisthesis, lumbar region Spinal stenosis, lumbar region, with neurogenic claudication Lumbar disc disease Past Family History Family History Father Coronary heart disease Arthritis Heart disease Myocardial infarction Mother Acute subdural hematoma Uncle Diabetes Brother Diabetes Sister Thyroid cancer Aunt Breast cancer Denies family history of Ovarian cancer Prostate cancer Colorectal cancer Past Surgical History Surgical History History of back surgery History of carpal tunnel surgery History of Neuroplasty Decompression Median Nerve At Carpal Tunnel History of tonsillectomy and adenoidectomy History of total hysterectomy with bilateral salpingo-oophorectomy (BSO) Social History Smoking Status: Never smoker Do You Dip or Chew Tobacco: No Hx Alcohol Use: Yes Alcohol type: wine alcohol intake frequency: holidays/special occasions only Hx Substance Use: No Physical Exam Vital Signs Last Vital Signs Temp 36.7 C 04/18/23 07:16 Pulse 68 04/18/23 07:16 Resp 18 04/18/23 07:16 BP 149/71 H 04/18/23 07:16 Pulse Ox 95 04/18/23 07:16 O2 Del Method Room Air 04/18/23 07:16 Testing Laboratory Results 04/18/23 06:18 04/18/23 06:18
--- NOTE | 2023-04-18 11:01 | Orthopedic Progress Note ---
Date of Service April 18, 2023 Assessment & Plan (1) Other infective (teno)synovitis, right hand: Plan: Left index finger septic flexor tenosynovitis Continue conservative management versus surgical management was discussed with the patient. Since she has had worsening symptoms and her physical exam is worsened from yesterday, she will be scheduled later today for a left index finger I&D septic flexor tenosynovitis. The patient is already n.p.o. We discussed postoperative treatment and awaiting intraoperative cultures for proper antibiotic choice. All potential risks, benefits, complications, alternatives, and rehab have been discussed with the patient and she wishes to proceed. We will follow the patient postoperatively. Surgical consent placed on the front of the chart for Dr. Mccord to review with the patient. Admission and Anticipated Discharge Date Admission Date: April 16, 2023 Subjective The patient states she is having quite a bit of pain in the left index finger. The swelling has worsened significantly and she feels that it is pushing her middle finger away from the index finger. She feels that despite the antibiotics her finger continues to worsen from yesterday. She is having significant pain with difficulties sleeping. She states she had a small cut at the radial aspect of the index finger while making wreaths. She is uncertain if the wire had punctured her finger at that area. She later developed redness and pain of the index finger which is worsened over the past few days. Physical Exam Constitutional: WD/WN, vitals as above no acute distress (But quite uncomfortable lying in bed.) Musculoskeletal: Extremities: + hand abnormality Left (Index finger: +Kanavel signs. Moderate erythema of the finger extending to the A1 deny. No open or draining areas.) Skin: Trauma: no evidence of skin trauma Neurologic: normal touch/pain/proprioception Psychiatric: A+Ox3, euthymic affect Speech: normal rate/rhythm/volume of speech Results & Data Vital Signs (Past 12 Hours) Vital Signs Temp Pulse Resp BP Pulse Ox O2 Del Method 04/18/23 07:16 36.7 C 68 18 149/71 H 95 Room Air
[2023-04-18] MEDS ORDERED: DEXAMETHASONE SOD INJ 4 MG/ML VIAL ONE (12:28)
[2023-04-18] MEDS ORDERED: ONDANSETRON INJ 2 MG/ML 2 ML VIAL ONE (12:28)
[2023-04-18] MEDS ORDERED: LIDOCAINE 2% 2 ML VIAL/AMP(20MG/ML) INFIL ONE (12:28)
[2023-04-18] MEDS ORDERED: PROPOFOL IV EMULSION 10 MG/ML 20 ML VIAL IV ONE ×5 (12:28→12:32)
[2023-04-18] MEDS ORDERED: fentaNYL citrate PF 100 MCG/2 ML VIAL ONE (12:28)
[2023-04-18] MEDS ORDERED: LACTATED RINGER'S 1,000 ML IV SCH (12:45)
[2023-04-18] MEDS ORDERED: ceFAZolin 2000MG 2,000 MG/15 ML SYR IV ONE (13:03)
[2023-04-18] MEDS ORDERED: ceFAZolin 2,000 MG/15 ML IV PUSH IV ONE (13:05)
[2023-04-18] MEDS ORDERED: ONDANSETRON INJ 2 MG/ML 2 ML VIAL IV PRN (13:07)
[2023-04-18] MEDS ORDERED: fentaNYL citrate PF 100 MCG/2 ML VIAL IV PRN (13:07)
[2023-04-18] MEDS ORDERED: ATROPINE SULFATE 0.1 MG/ML 10ML SYR IV PRN (13:07)
[2023-04-18] MEDS ORDERED: ePHEDrine sulfate 50 MG/ML AMP IV PRN (13:07)
--- NOTE | 2023-04-18 13:09 | History & Physical Bridge Note ---
Date of Service April 18, 2023 History & Physical Bridge Note I have examined the patient, reviewed the History & Physical and in the interval since the performance of the History & Physical I have noted the following changes of clinical significance: no changes noted
[2023-04-18] MEDS ORDERED: BUPIVACAINE 0.5 % 5 MG/1 ML MPF 30ML VIAL ONE (13:10)
[2023-04-18] MEDS ORDERED: BUPIVACAINE/EPINEPHRINE 0.5% MPF 1:200,000 30 ML VIAL ONE (13:10)
--- NOTE | 2023-04-18 13:13 | Operative Report ---
Post Operative Report PRE-OP DIAGNOSIS: Left index finger septic flexor tenosynovitis POST-OP DIAGNOSIS: Same PROCEDURE: Left index finger irrigation and debridement of septic flexor tenosynovitis SURGEON: Varghese Mccord MD SUPERVISOR [employer]: Rhina Bull PA-C ANESTHESIA: Regional block with sedation FINDINGS: Gross purulence seen spreading outside the flexor tendon sheath system. A whole lot of infection in the flexor tendon sheath with purulence in the flexor tendon sheath. No evidence of PIP joint infection. Cut was seen on the radial aspect of the index finger just distal to the PIP joint.. This was sent for culture. INDICATIONS: This is a 87-year-old female who is status post a minor cut to the left index finger. She presents with progressive and increased pain and swelling in the left index finger. Examination in the preoperative holding area during area shows positive Knavel signs with evidence of septic flexor tenosynovitis. I saw her in the preoperative holding area, we discussed risk benefits reasonable outcomes and expectations for irrigation and debridement of septic flexor tenosynovitis. I discussed with her that we may also need to open the PIP joint to see if she has close space infection in there as well, as the laceration as per her report was over the PIP joint. The risks and benefits have been discussed including, but not limited to, risk of infection, nerve injury, stiffness, loss of motion, failure to improve, etc. Reasonable outcomes and options of treatment were discussed. An explanation of appropriate alternatives to the procedure that may be advantageous were discussed and their risks and benefits, as well as the risks and benefits of not proceeding with treatment. I offered to answer any additional inquiries concerning the treatment involved. All the patients questions were answered. The patient is agreeable, understanding of the treatment plan and alternatives, and wishes to proceed with the treatment plan. DESCRIPTION OF OPERATION: The patient was identified. The proper procedure and site were verified. A surgical time out was taken and observed. After administration of anesthesia, the patient's arm prepped and draped in the usual sterile fashion. I made a longitudinal incision over the A1 deny of the left index finger A1 deny. Dissection was carried out through the skin and subcutaneous tissues digital nerves were retracted. A significant amount of purulence was seen in and around the a 1 deny. I irrigated the purulence. I then made a second separate incision over the DIP joint in the middle lateral approach. I dissected bluntly down to the flexor tendon sheath and opened this up. I then performed through and through irrigation from proximal to distal with a 14-gauge Angiocath and a 10 cc control syringe until fluid returned was clear. Proximal incision was copiously irrigated as well with cystoscopy tubing. Tourniquet was let down, hemostasis was obtained with bipolar electro cautery, skin was closed with 4-0 nylon in a running fashion over the proximal incision and a single simple stitch in the distal incision. Patient was placed in soft dressings in the PACU stable condition postoperatively monitor culture results. Immediate unrestricted range of motion begin physical therapy. Due to the complex nature of the procedure, the entire surgery was performed with the operational assistance of Rhina Bull PA-C.The assistant gm of content & delivery, under direct supervision, was involved in the actual performance of all aspects of the surgical procedure including hemostasis, tissue retraction and incision, instrument management, patient positioning, and wound closure.
[2023-04-18] MEDS ORDERED: ePHEDrine sulfate 50 MG/ML AMP ONE (13:26)
--- NOTE | 2023-04-18 15:06 | Electrocardiogram Report ---
Test Reason : Blood Pressure : / mmHG Vent. Rate : 071 BPM Atrial Rate : 071 BPM P-R Int : 162 ms QRS Dur : 086 ms QT Int : 412 ms P-R-T Axes : 053 031 047 degrees QTc Int : 447 ms Normal sinus rhythm with sinus arrhythmia Abnormal ECG When compared with ECG of 02-NOV-2016 09:40, Premature atrial complexes are no longer Present Confirmed by Bandar Alvarado ([id number]) on 04/18/2023 3:06:03 PM Referred By: REFERRED SELF Confirmed By:Bandar Alvarado
--- NOTE | 2023-04-18 16:00 | Anesthesiology Progress Note ---
Date of Service April 18, 2023 Anesthesia Post Procedure Vital Signs Vital Signs: Temp Pulse Pulse Resp BP Pulse Ox O2 Del Method 04/18/23 15:48 97.8 F 76 16 124/73 93 Room Air 04/18/23 15:14 98.4 F 15 126/71 94 Room Air 04/18/23 14:48 98.4 F 74 16 132/73 95 Room Air 04/18/23 14:35 98.2 F 69 16 135/67 92 Room Air 04/18/23 14:25 70 14 152/69 H 94 Room Air 04/18/23 14:15 71 16 149/73 H 98 Oxymask 04/18/23 14:07 96.8 F L 76 10 L 133/72 98 Oxymask 04/18/23 12:35 99.0 F 77 18 155/78 H 96 Room Air 04/18/23 07:16 98.1 F 68 18 149/71 H 95 Room Air 04/17/23 19:28 99.3 F 72 18 119/61 95 Room Air O2 Flow Rate 04/18/23 15:48 04/18/23 15:14 04/18/23 14:48 04/18/23 14:35 04/18/23 14:25 04/18/23 14:15 6 04/18/23 14:07 6 04/18/23 12:35 04/18/23 07:16 04/17/23 19:28 Transfer of Care Handoff Completed per policy Notes Mental Status: alert / awake / arousable and participated in evaluation Patient Amnestic to Procedure: Yes Nausea / Vomiting: adequately controlled Pain: adequately controlled Airway Patency, RR, SpO2: stable & adequate BP & HR: stable & adequate Hydration State: stable & adequate Anesthetic Complications: no major complications apparent and Pt Satisfied with anesthetic care
[2023-04-18] MEDS ORDERED: POLYETHYLENE (MIRALAX) 17 GM PACK PO PRN (16:24)
[2023-04-18] MEDS: VANCOMYCIN HCL 1,250 MG in SODIUM CHLORIDE 0.9% 250 ML IV SCH (19:34)
[2023-04-18] MEDS: PRAVASTATIN SOD 20 MG TAB PO SCH (20:04)
[2023-04-18] MEDS: MoRPHine SULFATE 2 MG/ML CARP IV PRN (20:04)
[2023-04-19] MEDS: cefTRIAXone SODIUM 2,000 MG in DEXTROSE 5 % MINI-B 50 ML IV SCH (01:43)
[2023-04-19] MEDS: LEVOTHYROXINE SODIUM 50 MCG TABLET PO SCH (06:00)
[2023-04-19] MEDS: MoRPHine SULFATE 2 MG/ML CARP IV PRN (06:00)
[2023-04-19] MEDS ORDERED: FAMOTIDINE 20 MG TAB PO ONE (06:22)
[2023-04-19] MEDS ORDERED: VANCOMYCIN LEVEL ONE (07:30)
[2023-04-19 07:46] LABS: Hemoglobin 13.3 g/dl (12.0-16.0); Mean Corpuscular Hemoglobin 32.6 pg (25.0-34.0); Mean Corpuscular Hgb Conc 34.1 g/dL (32.0-36.0); Mean Corpuscular Volume 95.6 fL (80.0-100.0); Mean Platelet Volume 11.5 fL (9.4-12.4); Platelet Count 165 K/uL (130-400); RDW Coefficient of Variation 13.8 % (11.5-14.5); Red Blood Count 4.08 M/uL (4.20-5.40); White Blood Count 9.98 K/ul (4.8-10.8)
[2023-04-19 08:12] LABS: BUN Creatinine Ratio 33.3 (10-20); Calcium 8.9 mg/dl (8.6-10.3); Creatinine Clr Calc Pharmacy 62.1 ml/min; Est GFR (African American) 93.4 ml/min; Est GFR (Non-African American) 80.6 ml/min
[2023-04-19] MEDS: SERTRALINE HCL 50 MG TABLET PO SCH (08:24)
[2023-04-19] MEDS: VANCOMYCIN HCL 750 MG in SODIUM CHLORIDE 0.9% 250 ML IV SCH (08:27)
[2023-04-19] MEDS: ALPRAZolam 0.5 MG TABLET PO SCH (08:27)
--- NOTE | 2023-04-19 10:42 | Pharmacy Report ---
Pharmacy PK ABX Note - Date of Service April 19, 2023 - Assessment and Plan Assessment 87 year old F receiving Vancomycin and Ceftriaxone for treatment of finger cellulitis/tenosynovitis. POD #1 debridement. Renal function stable. Operative cultures pending. * Day #4 of antimicrobial therapy Plan Vancomycin * Current regimen- vancomycin 750mg IV q12h * Random level this AM (~ 10.5hr level), 9mcg/mL. Predicted to achieve ssAUC 381mg/L.hr which is subtherapeutic. * Increase dose to 1gm IV q12h. * Random level 12/8 AM Pharmacy will continue to follow and will adjust dose/frequency as necessary. Thank you. Pharmacy has transitioned to AUC monitoring for vancomycin. AUC/ARELI is the preferred PK/PD target and is associated with decreased risk of nephrotoxicity compared to traditional trough targets.
--- NOTE | 2023-04-19 12:31 | Hospitalist Progress Note ---
Date of Service April 19, 2023 Assessment & Plan (1) Finger infection: Plan: 87yo female presenting with pain, swelling and redness of her left index finger following a small cut sustained 04/13.0 - 04/16 MRI: Circumferential subcutaneous edema of the index finger, concerning for cellulitis. No definite flexor or extensor tenosynovitis. -Orthopedic Surgery consulted -I&D Septic Flexor Tenosynovitis 04/[address] Mccord -wound culture pending -Follow blood cultures - not drawn on admission, pt has already received 4 doses of abx. Will hold off on drawing cultures now. - Febrile PM 04/17, infection progression, pt feeling worse --> blood cultures ordered 04/18, no growth 24 hours -Continue antibiotic coverage - Vancomycin and Ceftriaxone -Tylenol and [place] prn for pain (2) Hypercholesterolemia: Plan: Chronic. Stable -Continue Pravastatin 20mg po qHS (3) Hypothyroidism: Plan: Stable. 10/2022:TSH 1.887 -Continue home dose of Synthroid Plan Continued inpatient stay await cultures Admission and Anticipated Discharge Date Admission Date: April 16, 2023 Subjective 1215 - Patient seen sitting up in bed, eating lunch. Daughter at bedside. Reports she is feeling better. Had an episode around 5am with alot of indigestion and abdominal pain but has since subsided. No BM today, but reports had one yesterday. ROM coming back in her 3rd finger and feels like swelling in her palm is worse. Denies CP or SOB. Review of Systems Review of Systems: All systems reviewed & are unremarkable except as noted in Subjective Physical Exam Physical Exam: General: WN/WD, NAD, VS as above Resp: normal respiratory effort, lungs clear to auscultation CV: RRR, no murmur, no edema Abd: non tender, no hepatosplenomegaly Extremities: left hand: bandage intact over 2nd digit, Sensation intact. No ROM on the 2nd digit. ROM of 3rd digit improving, edema has decreased. Neuro: A&O x3, Skin: Left hand as above, no further lesions noted Results & Data Results & Data Vital Signs (Past 12 Hours) Vital Signs Temp Pulse Pulse Resp BP Pulse Ox O2 Del Method 04/19/23 11:19 36.6 C 66 14 138/78 97 Room Air 04/19/23 07:40 37.1 C 68 16 132/84 96 Room Air 04/19/23 06:58 37.0 C 69 16 149/63 H 95 Room Air 04/19/23 03:28 37.0 C 69 18 130/66 96 Room Air PG Care Time/CCT Total # of Minutes Spent Total Time Spent with Patient: Total time spent is greater than 50% in coordination of care (as documented) at patient's floor/unit and/or counseling patient: Coding Level of Care Code 13722 SUB INP/OBS CARE 2/35MIN Diagnoses Finger infection L08.9 Hypercholesterolemia E78.00 Hypothyroidism E03.9
--- NOTE | 2023-04-19 14:11 | Orthopedic Progress Note ---
Date of Service April 19, 2023 Assessment & Plan (1) Other infective (teno)synovitis, right hand: Plan: Postop day 1 status post irrigation debridement left index finger Cultures pending at this time. No organisms noted on Gram stain. Currently on ceftriaxone and vancomycin pending culture results. Plan for dressing change likely tomorrow. Patient states that they have been talking about the use of a PICC line with home IV antibiotics. Continue current pain management. Admission and Anticipated Discharge Date Admission Date: April 16, 2023 Subjective Patient sitting up in bed awake and alert. She is comfortable. She states that her pain is controlled currently. She is having a [id number] feeling in her index finger. She states that she is able to bend her middle finger much better today and has only mild discomfort in that area of the swelling that she had just distal to the MP joint. No other complaints. Physical Exam Physical Exam: Dressings are clean, dry, and intact of the left index finger. She has some mild ecchymosis at the base of the middle finger. She is getting much better range of motion at this time of the middle finger. She is unable to bend the index finger at this time due to swelling and thickness of bandage. Results & Data Vital Signs (Past 12 Hours) Vital Signs Temp Pulse Pulse Resp BP Pulse Ox O2 Del Method 04/19/23 11:19 36.6 C 66 14 138/78 97 Room Air 04/19/23 07:40 37.1 C 68 16 132/84 96 Room Air 04/19/23 06:58 37.0 C 69 16 149/63 H 95 Room Air 04/19/23 03:28 37.0 C 69 18 130/66 96 Room Air
[2023-04-19] MEDS: VANCOMYCIN HCL 1,000 MG in SODIUM CHLORIDE 0.9% 250 ML IV SCH (15:08)
[2023-04-19] MEDS: PRAVASTATIN SOD 20 MG TAB PO SCH (20:56)
[2023-04-19] MEDS: MELATONIN 3 MG TAB PO PRN (23:46)
[2023-04-20] MEDS: cefTRIAXone SODIUM 2,000 MG in DEXTROSE 5 % MINI-B 50 ML IV SCH (02:13)
[2023-04-20] MEDS: ACETAMINOPHEN 325 MG TAB PO PRN (02:17)
[2023-04-20] MEDS: VANCOMYCIN HCL 1,000 MG in SODIUM CHLORIDE 0.9% 250 ML IV SCH ×2 (04:49→17:00)
[2023-04-20] MEDS: LEVOTHYROXINE SODIUM 50 MCG TABLET PO SCH (06:19)
[2023-04-20 08:16] LABS: BUN Creatinine Ratio 32.4 (10-20); Calcium 8.7 mg/dl (8.6-10.3); Creatinine Clr Calc Pharmacy 60.3 ml/min; Est GFR (African American) 92.4 ml/min; Est GFR (Non-African American) 79.8 ml/min; Potassium 4.1 mmol/L (3.5-5.1)
[2023-04-20] MEDS: ALPRAZolam 0.5 MG TABLET PO SCH (08:52)
[2023-04-20] MEDS: SERTRALINE HCL 50 MG TABLET PO SCH (08:52)
[2023-04-20 08:55] LABS: Hematocrit (blood only) 40.6 % (37.0-47.0); Hemoglobin 12.8 g/dl (12.0-16.0); Mean Corpuscular Hemoglobin 31.8 pg (25.0-34.0); Mean Corpuscular Hgb Conc 31.5 g/dL (32.0-36.0); Mean Platelet Volume 11.4 fL (9.4-12.4); Platelet Count 165 K/uL (130-400); RDW Coefficient of Variation 13.8 % (11.5-14.5); RDW Standard Deviation 51.6 fL (36.4-46.3); Red Blood Count 4.02 M/uL (4.20-5.40); White Blood Count 6.66 K/ul (4.8-10.8)
--- NOTE | 2023-04-20 14:15 | Orthopedic Progress Note ---
Date of Service April 20, 2023 Assessment & Plan (1) Other infective (teno)synovitis, right hand: Plan: 87 yo female stable POD #2 s/p left IF I&D septic flexor tenosynovitis 1. Med management- cont iV abx 2. DVT prophylaxis- SCDs 3. PT/OT 4. D/C planning- Dr Fulton to discuss with Dr Mccord, possible need for repeat I&D Admission and Anticipated Discharge Date Admission Date: April 16, 2023 Subjective Pt resting in bed, states finger still moderately painful Physical Exam Physical Exam: Pt examined with Dr Fulton, dressing removed, mild, bloody drainage palmar hand wound, still moderate swelling and erythema proximal finger, pt able to flex PIP joint, difficulty mobilizing DIP joint, new dressing applied Results & Data Vital Signs (Past 12 Hours) Vital Signs Temp Pulse Resp BP Pulse Ox O2 Del Method 04/20/23 07:51 36.7 C 62 16 126/77 95 Room Air Laboratory Results 04/20/23 Range/Units 07:23 WBC 6.66 (4.8-10.8) K/ul RBC 4.02 L (4.20-5.40) M/uL Hgb 12.8 (12.0-16.0) g/dl Hct 40.6 (37.0-47.0) % MCV 101.0 H D (80.0-100.0) fL MCH 31.8 (25.0-34.0) pg MCHC 31.5 L (32.0-36.0) g/dL RDW Std Deviation 51.6 H (36.4-46.3) fL RDW Coeff of Wang 13.8 (11.5-14.5) % Plt Count 165 (130-400) K/uL MPV 11.4 (9.4-12.4) fL Sodium 141 (136-145) mmol/L Potassium 4.1 (3.5-5.1) mmol/L Chloride 107 (98-107) mmol/L Carbon Dioxide 27 (21-32) mmol/L Anion Gap 7 (3-11) BUN 22 (6-23) mg/dl Creatinine 0.68 (0.6-1.2) mg/dl Est Cr Clr Drug Dosing 60.3 ml/min Est GFR ( Amer) 92.4 ml/min Est GFR (Non-Af Amer) 79.8 ml/min BUN/Creatinine Ratio 32.4 H (10-20) Glucose 95 (70-99(Fasting)) mg/dl Calcium 8.7 (8.6-10.3) mg/dl Microbiology 04/18/23 13:41 Gram Stain - Final Finger,Left Index Aerobic and Anaerobic Culture - Preliminary No growth to date. 04/18/23 10:12 Aerobic Blood Culture - Preliminary Blood No growth in Aerobic bottle after 48 hours. Anaerobic Blood Culture - Preliminary No growth in Anaerobic bottle after 48 hours. 04/18/23 10:08 Aerobic Blood Culture - Preliminary Blood No growth in Aerobic bottle after 48 hours. Anaerobic Blood Culture - Preliminary No growth in Anaerobic bottle after 48 hours.
--- NOTE | 2023-04-20 15:14 | Hospitalist Progress Note ---
Date of Service April 20, 2023 Assessment & Plan (1) Finger infection: Plan: 87yo female presenting with pain, swelling and redness of her left index finger following a small cut sustained 04/13.0 - 04/16 MRI: Circumferential subcutaneous edema of the index finger, concerning for cellulitis. No definite flexor or extensor tenosynovitis. -Orthopedic Surgery consulted -I&D Septic Flexor Tenosynovitis 04/[address] Mccord -wound culture pending, NGTD -Follow blood cultures - not drawn on admission, pt has already received 4 doses of abx. Will hold off on drawing cultures now. - Febrile PM 04/17, infection progression, pt feeling worse --> blood cultures ordered 04/18, no growth 48 hours -Continue antibiotic coverage - Vancomycin and Ceftriaxone -Tylenol and [place] prn for pain (2) Hypercholesterolemia: Plan: Chronic. Stable -Continue Pravastatin 20mg po qHS (3) Hypothyroidism: Plan: Stable. 10/2022:TSH 1.887 -Continue home dose of Synthroid (4) Other infective (teno)synovitis, left hand: Plan Continued inpatient stay, while awaiting cultures and may need to return to OR. Medically stable if needed Admission and Anticipated Discharge Date Admission Date: April 16, 2023 Supervising Physician Co-Signing Physician Notes Attending Attestation - Chart reviewed, care plan d/w HATTIE Huitron. I agree with the cohen components of her documentation with the following additional diagnosis - Septic/infective tenosynovitis of left hand - 2nd finger. Hiram Schultz MD Subjective Patient sitting in bed eating lunch, Son present at beside. Patient reports felling well, more movement in her middle finger and swelling continues to decrease. However still cannot move her second finger, and states when the Ortho PA was in this morning and removed the bandage "his face did not look like he was happy with what he saw" Did have a small bowel movement. Denies CP or SOB. Review of Systems Review of Systems: All systems reviewed & are unremarkable except as noted in Subjective Physical Exam Physical Exam: General: WN/WD, NAD, VS as above Resp: normal respiratory effort, lungs clear to auscultation CV: RRR, no murmur, no edema Abd: non tender, no hepatosplenomegaly Extremities: left hand: bandage intact over 2nd digit. Blood present on dressing, RN notified. Sensation intact. No ROM on the 2nd digit. ROM of 3rd digit improving, edema has decreased. Neuro: A&O x3, Skin: Left hand as above, no further lesions noted Results & Data Results & Data Vital Signs (Past 12 Hours) Vital Signs Temp Pulse Resp BP Pulse Ox O2 Del Method 04/20/23 07:51 36.7 C 62 16 126/77 95 Room Air Laboratory Results CBC and BMP reviewed Microbiology 04/18/23 13:41 Gram Stain - Final Finger,Left Index Aerobic and Anaerobic Culture - Preliminary No growth to date. 04/18/23 10:12 Aerobic Blood Culture - Preliminary Blood No growth in Aerobic bottle after 48 hours. Anaerobic Blood Culture - Preliminary No growth in Anaerobic bottle after 48 hours. 04/18/23 10:08 Aerobic Blood Culture - Preliminary Blood No growth in Aerobic bottle after 48 hours. Anaerobic Blood Culture - Preliminary No growth in Anaerobic bottle after 48 hours. PG Care Time/CCT Total # of Minutes Spent Total Time Spent with Patient: Total time spent is greater than 50% in coordination of care (as documented) at patient's floor/unit and/or counseling patient: Coding Level of Care Code 11519 SUB INP/OBS CARE 2/35MIN Diagnoses Finger infection L08.9 Hypercholesterolemia E78.00 Hypothyroidism E03.9 Other infective (teno)synovitis, left hand M65.142
--- NOTE | 2023-04-20 17:34 | Orthopedic Progress Note ---
Date of Service April 20, 2023 Assessment & Plan (1) Other infective (teno)synovitis, right hand: Plan: Postop day 2 status post irrigation debridement of septic flexor tenosynovitis Plan at this point we will continue to observe. It is difficult to tell whether or not this represents postoperative swelling versus continued infection. Will continue to observe cultures which do not show any growth at this point in time. I would be hopeful if we get culture results we can better target her antibiotic. I will continue to observe. If she develops continued symptoms or worsening may consider repeat irrigation and debridement down the road, but will observe for additional 24 hours Admission and Anticipated Discharge Date Admission Date: April 16, 2023 Subjective I saw Guillermina at the bedside today. She states finger feels about the same as prior to surgery Physical Exam Musculoskeletal: Left index exam: She exhibits continued erythema in the finger and swelling. Overall finger looks slightly better compared to preop Results & Data Vital Signs (Past 12 Hours) Vital Signs Temp Pulse Resp BP BP Pulse Ox O2 Del Method 04/20/23 16:19 36.6 C 67 16 144/72 H 94 Room Air 04/20/23 07:51 36.7 C 62 16 126/77 95 Room Air
[2023-04-20] MEDS: PRAVASTATIN SOD 20 MG TAB PO SCH (20:05)
[2023-04-20] MEDS: MELATONIN 3 MG TAB PO PRN (23:06)
[2023-04-21] MEDS: cefTRIAXone SODIUM 2,000 MG in DEXTROSE 5 % MINI-B 50 ML IV SCH (02:02)
[2023-04-21] MEDS ORDERED: VANCOMYCIN LEVEL ONE (03:00)
[2023-04-21 04:11] LABS: Hematocrit (blood only) 40.9 % (37.0-47.0); Hemoglobin 13.2 g/dl (12.0-16.0); Mean Corpuscular Hgb Conc 32.3 g/dL (32.0-36.0); Mean Corpuscular Volume 99.3 fL (80.0-100.0); Mean Platelet Volume 11.1 fL (9.4-12.4); Platelet Count 179 K/uL (130-400); RDW Coefficient of Variation 13.7 % (11.5-14.5); RDW Standard Deviation 50.1 fL (36.4-46.3); Red Blood Count 4.12 M/uL (4.20-5.40); White Blood Count 7.07 K/ul (4.8-10.8)
[2023-04-21] MEDS: VANCOMYCIN HCL 1,000 MG in SODIUM CHLORIDE 0.9% 250 ML IV SCH ×2 (04:55→15:27)
[2023-04-21] MEDS: LEVOTHYROXINE SODIUM 50 MCG TABLET PO SCH (06:16)
[2023-04-21] MEDS: ACETAMINOPHEN 325 MG TAB PO PRN (09:12)
[2023-04-21] MEDS: ALPRAZolam 0.5 MG TABLET PO SCH (09:12)
[2023-04-21] MEDS: SERTRALINE HCL 50 MG TABLET PO SCH (09:13)
--- NOTE | 2023-04-21 09:51 | Pharmacy Report ---
Pharmacy PK ABX Note - Date of Service April 21, 2023 - Assessment and Plan Assessment 87 year old F receiving Vancomycin and Ceftriaxone for treatment of finger cellulitis/tenosynovitis. POD #1 debridement. Renal function stable. Operative cultures pending. * Day #5 of antimicrobial therapy 04/21: Per provider, patient may need to consider OR for washout pending stagnant clinical response. Will consider repeat level and evaluate need for dose increase in next 24-48 hours as needed pending duration of therapy and ongoing clinical response Plan Vancomycin * Current regimen: 1000 mg IV every 12 hours * Trough level obtained 04/21/23 resulted as 11.4 mcg/mL. This is predicted to achieve target AUC/ARELI of 400-600 mg/L.hr * Predicted AUC at steady state: 488 mg/L.hr * Continue 1000 mg IV every 12 hours * Will repeat level in the next 48-72 hours if therapy is continued and/or change in patient clinical status Pharmacy will continue to follow and will adjust dose/frequency as necessary. Thank you. Pharmacy has transitioned to AUC monitoring for vancomycin. AUC/ARELI is the preferred PK/PD target and is associated with decreased risk of nephrotoxicity compared to traditional trough targets.
--- NOTE | 2023-04-21 11:39 | Hospitalist Progress Note ---
Date of Service April 21, 2023 Assessment & Plan (1) Finger infection: Plan: 87yo female presenting with pain, swelling and redness of her left index finger following a small cut sustained 04/13.0 - 04/16 MRI: Circumferential subcutaneous edema of the index finger, concerning for cellulitis. No definite flexor or extensor tenosynovitis. -Orthopedic Surgery consulted -I&D Septic Flexor Tenosynovitis 04/[address] Mccord -wound culture pending, NGTD -Follow blood cultures - not drawn on admission, pt has already received 4 doses of abx. Will hold off on drawing cultures now. - Febrile PM 04/17, infection progression, pt feeling worse --> blood cultures ordered 04/18, no growth 48 hours -Continue antibiotic coverage - Vancomycin and Ceftriaxone -no history to warrant change in abx, no pets at home. -Tylenol and [place] prn for pain Discussed with Dr. Mccord, since no improvement will take her to the OR today for repeat I&D. Patient &RN aware. Pt made NPO. (2) Hypercholesterolemia: Plan: Chronic. Stable -Continue Pravastatin 20mg po qHS (3) Hypothyroidism: Plan: Stable. 10/2022:TSH 1.887 -Continue home dose of Synthroid Plan Continued inpatient stay, OR today Admission and Anticipated Discharge Date Admission Date: April 16, 2023 Supervising Physician Co-Signing Physician Notes Attending Attestation - Chart reviewed, care plan d/w HATTIE Huitron. I agree with the cohen components of her documentation with the following additional diagnosis - Septic/infective tenosynovitis of left hand - 2nd finger. To OR today for repeat I/D by orthopedics. Prior culture from initial I/D is surprisingly negative. Cont current antibiotics. Hiram Schultz MD Subjective 1125 - Patient resting in bed, reports did not sleep well last night. States that her finger is about the same, swelling continues to decrease on her third finger. Still unable to move the second finger. No fevers or chills. Had a BM last night. No CP or SOB. Review of Systems Review of Systems: All systems reviewed & are unremarkable except as noted in Subjective Physical Exam Physical Exam: General: WN/WD, NAD, VS as above Resp: normal respiratory effort, lungs clear to auscultation CV: RRR, no murmur, no edema Abd: non tender, no hepatosplenomegaly Extremities: left hand: bandage intact over 2nd digit. Sensation intact. No ROM on the 2nd digit. contined erythema. ROM of 3rd digit improving, edema has decreased. Neuro: A&O x3, Skin: Left hand as above, no further lesions noted Results & Data Results & Data Vital Signs (Past 12 Hours) Vital Signs Temp Pulse Resp BP Pulse Ox O2 Del Method 04/21/23 08:07 36.6 C 68 16 114/73 95 Room Air Laboratory Results CBC reviewed PG Care Time/CCT Total # of Minutes Spent Total Time Spent with Patient: Total time spent is greater than 50% in coordination of care (as documented) at patient's floor/unit and/or counseling patient: Coding Level of Care Code 42848 SUB INP/OBS CARE 2/35MIN Diagnoses Finger infection L08.9 Hypercholesterolemia E78.00 Hypothyroidism E03.9
--- NOTE | 2023-04-21 16:16 | Anesthesiology Consultation ---
Date of Service April 21, 2023 Assessment & Plan (1) Encounter for pre-operative examination: Chart Review Chart Review: Patient NOT seen in Pre Admission Testing and Acceptable Risk for Labor Epidural Consults Requested none History Surgery Operation Date: 04/18/23 08:20 Proposed Procedures p Left Index Finger Incision and Drainage Septic Flexor Tenosynovitis - Cipriano Mccord MD Operation Date: 04/21/23 10:55 Proposed Procedures p Incision and Drainage Hand Left - Cipriano Mccord MD Height/Weight Height: 5 ft 2 in Weight: 82.7 kg Allergies Allergy/AdvReac Type Severity Reaction Status Date / Time alendronate sodium Allergy Unknown CAN'T Verified 04/16/23 21:41 REMEMBER Medications Home Medications Medication Instructions Recorded Confirmed Last Taken acetaminophen 650 mg 650 mg PO DIRECTED PRN Pain 06/10/22 04/16/23 Unknown tablet,extended release ilvyxwg-[id number]-viddmaqm 250 1 tab PO Q6H PRN Headache 06/10/22 04/16/23 Unknown mg-250 mg-65 mg tablet (Excedrin Migraine) melatonin 10 mg tablet 10 mg PO HS PRN Sleep 06/10/22 04/16/23 Unknown meloxicam 7.5 mg tablet 7.5 mg PO DAILY #30 tabs 12/19/22 04/16/23 04/16/23 sertraline 100 mg tablet 150 mg (1.5 x 100 mg) PO DAILY 01/20/23 04/16/23 04/16/23 #135 tabs levothyroxine 50 mcg tablet 50 mcg PO DAILY #90 tabs 02/14/23 04/16/23 04/16/23 pravastatin 20 mg tablet 20 mg PO HS #90 tabs 02/16/23 04/16/23 04/15/23 alprazolam 0.5 mg tablet 0.5 mg PO DAILY anxiety 04/16/23 04/16/23 04/16/23 Active Medications Generic Name Dose Route Start Last Admin Trade Name Freq PRN Reason Stop Dose Admin Acetaminophen 650 mg 04/17/23 00:01 04/21/23 09:12 Acetaminophen 325 Mg Tab PO 05/17/23 00:00 650 mg Q4H PRN Administration Pain or Fever Alprazolam 0.5 mg 04/17/23 09:00 04/21/23 09:12 Alprazolam 0.5 Mg Tablet PO 05/17/23 08:59 0.5 mg DAILY CARLIE Administration Ceftriaxone Sodium 2,000 mg/ 50 mls @ 100 mls/hr 04/17/23 02:00 04/21/23 02:47 Dextrose IV 04/24/23 01:59 Infused Q24H CARLIE Infusion Protocol Vancomycin HCl 1,000 mg/ 270 mls @ 200 mls/hr 04/19/23 16:00 04/21/23 15:27 Sodium Chloride IV 04/25/23 09:14 200 mls/hr Q12H CARLIE Administration Levothyroxine Sodium 50 mcg 04/17/23 06:30 04/21/23 06:16 Levothyroxine Sodium 50 Mcg Tablet PO 05/17/23 06:29 50 mcg DAILYBB CARLIE Administration Melatonin 3 mg 04/17/23 23:56 04/20/23 23:06 Melatonin 3 Mg Tab PO 05/17/23 23:55 3 mg HS PRN Administration Sleep Polyethylene Glycol 17 gm 04/18/23 16:24 04/19/23 18:01 Polyethylene (Miralax) 17 Gm Pack PO 05/18/23 16:23 17 gm DAILY PRN Administration Constipation Pravastatin Sodium 20 mg 04/17/23 21:00 04/20/23 20:05 Pravastatin Sod 20 Mg Tab PO 05/17/23 20:59 20 mg HS CARLIE Administration Sertraline HCl 150 mg 04/17/23 09:00 04/21/23 09:13 Sertraline Hcl 50 Mg Tablet PO 05/17/23 08:59 150 mg DAILY CARLIE Administration NPO Date Last Intake of Fluids: 04/17/23 Time Last Intake of Fluids: 21:00 Last Intake of Fluids Comment: sip with meds per order Date Last Intake of Solids: 04/17/23 Time Last Intake of Solids: 21:00 Past Medical History Medical History Encounter for pre-operative examination Hypertension Sciatica of right side Osteoporosis Gait disturbance Eustachian tube dysfunction Chest pain Carpal tunnel syndrome Abnormal weight gain Spondylolisthesis, lumbar region Spinal stenosis, lumbar region, with neurogenic claudication Lumbar disc disease Past Family History Family History Father Coronary heart disease Arthritis Heart disease Myocardial infarction Mother Acute subdural hematoma Uncle Diabetes Brother Diabetes Sister Thyroid cancer Aunt Breast cancer Denies family history of Ovarian cancer Prostate cancer Colorectal cancer Past Surgical History Surgical History History of back surgery History of carpal tunnel surgery History of Neuroplasty Decompression Median Nerve At Carpal Tunnel History of tonsillectomy and adenoidectomy History of total hysterectomy with bilateral salpingo-oophorectomy (BSO) Social History Smoking Status: Never smoker Do You Dip or Chew Tobacco: No Hx Alcohol Use: Yes Alcohol type: wine alcohol intake frequency: holidays/special occasions only Hx Substance Use: No Physical Exam Vital Signs Last Vital Signs Temp 97.9 F 04/21/23 08:07 Pulse 68 04/21/23 08:07 Resp 16 04/21/23 08:07 BP 114/73 04/21/23 08:07 Pulse Ox 95 04/21/23 08:07 O2 Del Method Room Air 04/21/23 08:07 O2 Flow Rate 6 04/18/23 14:15 Testing Laboratory Results 04/21/23 03:39 04/20/23 07:23 04/18/23 13:41 Gram Stain - Final Finger,Left Index Aerobic and Anaerobic Culture - Preliminary No growth to date. 04/18/23 10:12 Aerobic Blood Culture - Preliminary Blood No growth in Aerobic bottle after 48 hours. Anaerobic Blood Culture - Preliminary No growth in Anaerobic bottle after 48 hours. 04/18/23 10:08 Aerobic Blood Culture - Preliminary Blood No growth in Aerobic bottle after 48 hours. Anaerobic Blood Culture - Preliminary No growth in Anaerobic bottle after 48 hours.
[2023-04-21] MEDS ORDERED: PROPOFOL IV EMULSION 10 MG/ML 20 ML VIAL IV ONE (16:23)
[2023-04-21] MEDS ORDERED: LIDOCAINE 2% 2 ML VIAL/AMP(20MG/ML) INFIL ONE (16:23)
[2023-04-21] MEDS ORDERED: SUCCINYLCHOLINE CHLORIDE 20 MG/ML 10 ML VIAL IV ONE (16:23)
[2023-04-21] MEDS ORDERED: fentaNYL citrate PF 100 MCG/2 ML VIAL ONE (16:23)
[2023-04-21] MEDS ORDERED: LARYING-O-JET KIT (LTA) ONE (16:26)
--- NOTE | 2023-04-21 16:27 | History & Physical Bridge Note ---
Date of Service April 21, 2023 History & Physical Bridge Note I have examined the patient, reviewed the History & Physical and in the interval since the performance of the History & Physical I have noted the following changes of clinical significance: no changes noted Juli demonstrates continued infection in the hand with erythema and ulnar-sided swelling in the digit. Our plan is for repeat irrigation and debridement. I discussed risk benefits reasonable outcomes and expectations with her. Culture showed no growth to date, but she was on antibiotics prior to taking the cultures. Will plan for: Left index finger irrigation and debridement of septic flexor tenosynovitis
[2023-04-21] MEDS ORDERED: LIDOCAINE 1% LOCAL 20 ML VIAL ONE (16:31)
[2023-04-21] MEDS ORDERED: BUPIVACAINE 0.5 % 5 MG/1 ML MPF 30ML VIAL ONE (16:31)
--- NOTE | 2023-04-21 16:42 | Operative Report ---
Post Operative Report PRE-OP DIAGNOSIS: Left index finger septic flexor tenosynovitis POST-OP DIAGNOSIS: Same PROCEDURE: Left index finger irrigation and debridement of septic flexor tenosynovitis SURGEON: Varghese Mccord MD SHIP ENGINEER: Walter Borrego PA-C ANESTHESIA: Digital block general anesthesia FINDINGS: A small amount of serous fluid. No gross purulence. This was sent for culture. INDICATIONS: Juli is status post irrigation and debridement of septic flexor tenosynovitis. She presents with continued symptoms of pain and swelling in the digit. She presents for repeat irrigation and debridement of septic flexor tenosynovitis. The risks and benefits have been discussed including, but not limited to, risk of infection, nerve injury, stiffness, loss of motion, failure to improve, etc. Reasonable outcomes and options of treatment were discussed. An explanation of appropriate alternatives to the procedure that may be advantageous were discussed and their risks and benefits, as well as the risks and benefits of not proceeding with treatment. I offered to answer any additional inquiries concerning the treatment involved. All the patients questions were answered. The patient is agreeable, understanding of the treatment plan and alternatives, and wishes to proceed with the treatment plan. DESCRIPTION OF OPERATION: The patient was identified. The proper procedure and site were verified. A surgical time out was taken and observed. After administration of anesthesia, the patient's arm prepped and draped in the usual sterile fashion. I injected major lidocaine and Marcaine in the local area as a digital block. I then remove the patient's previous sutures. Dissection was carried out through the skin and subcutaneous tissues digital nerves were retracted. I the A1 deny was previously incised. I size small amount of fluid in the region which was cultured. I then performed debridement of skin subcutaneous tissue and fascia I open the previous middle lateral incision over the DIP joint. I dissected bluntly down to the flexor tendon sheath and opened this up. I then performed through and through irrigation from proximal to distal with a 14-gauge Angiocath and a 10 cc control syringe until fluid returned was clear. Proximal incision was copiously irrigated as well with cystoscopy tubing. Tourniquet was let down, hemostasis was obtained with bipolar electro cautery, skin was closed with 4-0 nylon in a running fashion over the proximal incision and a single simple stitch in the distal incision. Patient was placed in soft dressings in the PACU stable condition postoperatively monitor culture results. Immediate unrestricted range of motion begin physical therapy. Due to the complex nature of the procedure, the entire surgery was performed with the operational assistance of Walter Borrego PA-C.The catalog library assistant, under direct supervision, was involved in the actual performance of all aspects of the surgical procedure including hemostasis, tissue retraction and incision, instrument management, patient positioning, and wound closure.
[2023-04-21] MEDS ORDERED: ONDANSETRON INJ 2 MG/ML 2 ML VIAL ONE (17:37)
[2023-04-21] MEDS ORDERED: METOCLOPRAMIDE HCL INJ 5 MG/ML 2 ML VIAL IV PRN (18:28)
[2023-04-21] MEDS ORDERED: ONDANSETRON INJ 2 MG/ML 2 ML VIAL IV PRN (18:28)
[2023-04-21] MEDS ORDERED: MAGNESIUM HYDROXIDE SUSP 30 ML UDC PO PRN (18:28)
[2023-04-21] MEDS ORDERED: NALOXONE HCL 0.4 MG/1 ML VIAL/CARP IV PRN (18:28)
[2023-04-21] MEDS ORDERED: bisacodyL 10 MG SUPP PR PRN (18:28)
--- NOTE | 2023-04-21 18:58 | Anesthesiology Progress Note ---
Date of Service April 21, 2023 Anesthesia Post Procedure Vital Signs Vital Signs: Temp Pulse Pulse Resp BP BP Pulse Ox 04/21/23 18:28 98.1 F 72 16 167/82 H 92 04/21/23 18:27 98.1 F 72 16 167/82 H 95 04/21/23 18:00 73 18 141/86 H 93 04/21/23 17:50 66 17 156/82 H 93 04/21/23 17:40 67 16 164/84 H 97 04/21/23 17:33 97.9 F 65 13 158/73 H 97 04/21/23 08:07 97.9 F 68 16 114/73 95 04/20/23 20:10 98.1 F 66 16 125/68 95 O2 Del Method O2 Flow Rate 04/21/23 18:28 Room Air 04/21/23 18:27 Nasal Cannula 2 04/21/23 18:00 Nasal Cannula 2 04/21/23 17:50 Oxymask 3 04/21/23 17:40 Oxymask 3 04/21/23 17:33 Oxymask 5 04/21/23 08:07 Room Air 04/20/23 20:10 Room Air Pain Intensity Left Finger: Pain Intensity: 7 Transfer of Care Handoff Completed per policy Notes Mental Status: alert / awake / arousable and participated in evaluation Patient Amnestic to Procedure: Yes Nausea / Vomiting: adequately controlled Pain: adequately controlled Airway Patency, RR, SpO2: stable & adequate BP & HR: stable & adequate Hydration State: stable & adequate Anesthetic Complications: no major complications apparent and Pt Satisfied with anesthetic care
[2023-04-21] MEDS: DOCUSATE SODIUM 100 MG CAP PO SCH (20:18)
[2023-04-21] MEDS: PRAVASTATIN SOD 20 MG TAB PO SCH (20:18)
[2023-04-21] MEDS: SODIUM CHLORIDE 0.9% 1,000 ML IV SCH (20:23)
[2023-04-21] MEDS: SENNA 8.6 MG TAB PO SCH (21:01)
[2023-04-21] MEDS: MELATONIN 3 MG TAB PO PRN (21:08)
[2023-04-21] MEDS: HYDROCODONE/ACETAMOPHEN 5/325MG TAB PO PRN (21:09)
[2023-04-22] MEDS: cefTRIAXone SODIUM 2,000 MG in DEXTROSE 5 % MINI-B 50 ML IV SCH (01:27)
[2023-04-22] MEDS: VANCOMYCIN HCL 1,000 MG in SODIUM CHLORIDE 0.9% 250 ML IV SCH ×2 (03:52→15:29)
[2023-04-22] MEDS: ACETAMINOPHEN 325 MG TAB PO PRN ×2 (04:59→13:29)
[2023-04-22] MEDS: SODIUM CHLORIDE 0.9% 1,000 ML IV SCH (06:01)
[2023-04-22] MEDS: LEVOTHYROXINE SODIUM 50 MCG TABLET PO SCH (06:18)
--- NOTE | 2023-04-22 08:04 | Orthopedic Progress Note ---
Date of Service April 22, 2023 Assessment & Plan (1) Flexor tenosynovitis of finger: Plan: Postop day #1 I&D left index finger flexor tenosynovitis, postop day 4 initial I&D. -PT/OT encouraged range of motion -Pain management as -Continue IV antibiotics. Initial cultures are with no growth. Repeat cultures obtained from procedure yesterday. -Plan on dressing change with packing removal tomorrow. Admission and Anticipated Discharge Date Admission Date: April 16, 2023 Subjective Patient is postop day #1 repeat I&D left index finger, postop day 4 initial I&D. She does have some soreness into her hand today which is not unexpected. Otherwise no complaints. Denies chest pain, shortness of breath, nausea/vomiting/diarrhea, headaches or dizziness. Review of Systems Review of Systems: All systems reviewed & are unremarkable except as noted in Subjective Physical Exam Physical Exam: Left hand: Fingers are mobile. Dressing is clean, dry, intact. Distally neurostatus and sensation is grossly intact. Results & Data Vital Signs (Past 12 Hours) Vital Signs Temp Pulse Resp BP BP Pulse Ox O2 Del Method 04/22/23 07:44 36.7 C 65 17 141/73 H 93 Room Air 04/22/23 04:55 36.4 C L 72 18 125/67 92 Room Air 04/22/23 01:35 36.8 C 69 14 137/70 91 Room Air 04/21/23 22:02 36.9 C 66 18 136/73 92 Room Air 04/21/23 21:11 36.5 C 73 16 138/76 94 Room Air
[2023-04-22] MEDS: MULTIVITAMIN TAB PO SCH (08:09)
[2023-04-22] MEDS: SERTRALINE HCL 50 MG TABLET PO SCH (08:09)
[2023-04-22] MEDS: ALPRAZolam 0.5 MG TABLET PO SCH (08:09)
[2023-04-22] MEDS: DOCUSATE SODIUM 100 MG CAP PO SCH ×2 (08:09→20:24)
[2023-04-22 08:17] LABS: Hematocrit (blood only) 39.2 % (37.0-47.0); Hemoglobin 12.5 g/dl (12.0-16.0); Mean Corpuscular Hemoglobin 32.2 pg (25.0-34.0); Mean Corpuscular Hgb Conc 31.9 g/dL (32.0-36.0); Mean Platelet Volume 11.4 fL (9.4-12.4); Platelet Count 169 K/uL (130-400); RDW Coefficient of Variation 13.8 % (11.5-14.5); RDW Standard Deviation 51.5 fL (36.4-46.3); Red Blood Count 3.88 M/uL (4.20-5.40)
[2023-04-22 08:25] LABS: BUN Creatinine Ratio 29.2 (10-20); Calcium 8.7 mg/dl (8.6-10.3); Creatinine Clr Calc Pharmacy 63.1 ml/min; Est GFR (African American) 93.8 ml/min; Potassium 4.1 mmol/L (3.5-5.1)
--- NOTE | 2023-04-22 10:31 | Hospitalist Progress Note ---
Date of Service April 22, 2023 Assessment & Plan (1) Finger infection: Plan: 87yo female presenting with pain, swelling and redness of her left index finger following a small cut sustained 04/13.0 - 04/16 MRI: Circumferential subcutaneous edema of the index finger, concerning for cellulitis. No definite flexor or extensor tenosynovitis. -Orthopedic Surgery consulted -I&D Septic Flexor Tenosynovitis 04/[address] Mccord -wound culture pending, NGTD -I&D Septic Flexor Tenosynovitis 04/[address] Mccord - Wound culture x2 pending, NGTD -Follow blood cultures - not drawn on admission, pt has already received 4 doses of abx. Will hold off on drawing cultures now. - Febrile PM 04/17, infection progression, pt feeling worse --> blood cultures ordered 04/18, no growth 48 hours -Continue antibiotic coverage - Vancomycin and Ceftriaxone -no history to warrant change in abx, no pets at home. -Tylenol and [place] prn for pain (2) Hypercholesterolemia: Plan: Chronic. Stable -Continue Pravastatin 20mg po qHS (3) Hypothyroidism: Plan: Stable. 10/2022:TSH 1.887 -Continue home dose of Synthroid Plan Continued inpatient stay Admission and Anticipated Discharge Date Admission Date: April 16, 2023 Supervising Physician Co-Signing Physician Notes Attending Attestation - Chart reviewed, care plan d/w HATTIE Huitron. I agree with the cohen components of her documentation with the following additional diagnosis - Septic/infective tenosynovitis of left hand - 2nd finger. POD #1 s/p repeat I/D by orthopedics. Prior culture from initial I/D is negative. Cultures from yesterday's I/D are pending. Cont current antibiotics. Hiram Schultz MD Subjective Patient lying in bed. Reports frontal headache but just had tylenol. Not able to move finger, but extensive dressing today. Pain in hand is controlled. Good appetite and BM this morning. Denies CP or SOB. Review of Systems Review of Systems: All systems reviewed & are unremarkable except as noted in Subjective Physical Exam Physical Exam: General: WN/WD, NAD, VS as above Resp: normal respiratory effort, lungs clear to auscultation CV: RRR, no murmur, no edema Extremities: left hand: bandage intact over 2nd digit. Dressing c/d/i. Sensation intact. Neuro: A&O x3, Skin: Left hand as above, no further lesions noted Results & Data Results & Data Vital Signs (Past 12 Hours) Vital Signs Temp Pulse Resp BP BP Pulse Ox O2 Del Method 04/22/23 07:44 36.7 C 65 17 141/73 H 93 Room Air 04/22/23 04:55 36.4 C L 72 18 125/67 92 Room Air 04/22/23 01:35 36.8 C 69 14 137/70 91 Room Air Laboratory Results CBC and chemistry reviewed Microbiology 04/21/23 17:02 Gram Stain - Final Finger,Left Index Aerobic and Anaerobic Culture - Preliminary No growth to date. 04/21/23 17:02 Gram Stain - Final Finger,Left Index Aerobic and Anaerobic Culture - Preliminary No growth to date. PG Care Time/CCT Total # of Minutes Spent Total Time Spent with Patient: Total time spent is greater than 50% in coordination of care (as documented) at patient's floor/unit and/or counseling patient: Coding Level of Care Code 42154 SUB INP/OBS CARE 2/35MIN Diagnoses Finger infection L08.9 Hypercholesterolemia E78.00 Hypothyroidism E03.9
--- NOTE | 2023-04-22 11:59 | Orthopedic Progress Note ---
Date of Service April 22, 2023 Assessment & Plan (1) Flexor tenosynovitis of finger: Plan: At this point in time I do not anticipate any additional surgical treatment. Will continue to monitor her cultures, and defer to antibiotics as per hospitalist. I would be hopeful with continued improvement she would be okay for discharge on Monday. Will will continue to follow. I encouraged her to do aggressive active and passive range of motion of the digit. She would benefit from being seen on a routine basis by occupational therapy while she is an inpatient. In follow-up should see certified hand therapist at [facility] upon discharge, 2 to 3 days after. She will follow-up with my physician orthotic assistant 10 to 14 days from today Admission and Anticipated Discharge Date Admission Date: April 16, 2023 Subjective I saw her at the bedside today. He verbalizes no new complaints Physical Exam Musculoskeletal: Left index examination: She has mild erythema. No drainage from the incisions. She overall shows improvement compared to prior to the initial surgery. No streaking erythema. Results & Data Vital Signs (Past 12 Hours) Vital Signs Temp Pulse Resp BP BP Pulse Ox O2 Del Method 04/22/23 07:44 36.7 C 65 17 141/73 H 93 Room Air 04/22/23 04:55 36.4 C L 72 18 125/67 92 Room Air 04/22/23 01:35 36.8 C 69 14 137/70 91 Room Air
[2023-04-22] MEDS: HYDROCODONE/ACETAMOPHEN 5/325MG TAB PO PRN (20:23)
[2023-04-22] MEDS: PRAVASTATIN SOD 20 MG TAB PO SCH (20:24)
[2023-04-22] MEDS: SENNA 8.6 MG TAB PO SCH (20:25)
[2023-04-23] MEDS: cefTRIAXone SODIUM 2,000 MG in DEXTROSE 5 % MINI-B 50 ML IV SCH (01:32)
[2023-04-23] MEDS: VANCOMYCIN HCL 1,000 MG in SODIUM CHLORIDE 0.9% 250 ML IV SCH ×2 (03:56→15:35)
[2023-04-23] MEDS: LEVOTHYROXINE SODIUM 50 MCG TABLET PO SCH (05:48)
[2023-04-23] MEDS: HYDROCODONE/ACETAMOPHEN 5/325MG TAB PO PRN ×3 (05:51→21:16)
[2023-04-23 06:53] LABS: Hemoglobin 12.6 g/dl (12.0-16.0); Mean Corpuscular Hemoglobin 32.6 pg (25.0-34.0); Mean Corpuscular Hgb Conc 33.2 g/dL (32.0-36.0); Mean Corpuscular Volume 98.2 fL (80.0-100.0); Platelet Count 168 K/uL (130-400); RDW Coefficient of Variation 13.8 % (11.5-14.5); RDW Standard Deviation 49.5 fL (36.4-46.3); Red Blood Count 3.87 M/uL (4.20-5.40); White Blood Count 6.88 K/ul (4.8-10.8)
--- NOTE | 2023-04-23 07:43 | Orthopedic Progress Note ---
Date of Service April 23, 2023 Assessment & Plan (1) Flexor tenosynovitis of finger: Plan: Postop day #2 repeat I&D septic flexor tenosynovitis, postop day #5 initial I&D. Continue daily dressing changes. Continue antibiotics as per medicine. Currently cultures are with no growth. Encouraged aggressive range of motion actively and passively. Continue occupational therapy while inpatient. At this point no additional surgery is anticipated. Will continue to follow. In follow-up should see certified hand therapist at [facility] [place] 2 to 3 days post discharge. She should follow-up with Dr. Mccord's physician ict sales assistant 10 to 14 days postoperatively. She can call [phone] for an appointment. Admission and Anticipated Discharge Date Admission Date: April 16, 2023 Subjective Patient is resting in bed comfortably. She does have some discomfort in her hand. No other complaints. Denies chest pain, shortness of breath, nausea/vomiting, headaches or dizziness, fever/chills. Review of Systems Review of Systems: All systems reviewed & are unremarkable except as noted in Subjective Physical Exam Physical Exam: Left hand: Dressing with mild serous drainage approximately. Dressing was removed. Distal incisions are clean, dry, intact. Palmar incision is well- approximated with mild serous drainage from proximal aspect of incision where packing was previously removed yesterday. Mild erythema and swelling. Overall improved appearance from previous. New dressing applied: Adaptic, 4 x 4, Kerlix. Results & Data Vital Signs (Past 12 Hours) Vital Signs Temp Pulse Resp BP Pulse Ox O2 Del Method 04/22/23 20:00 37.2 C 73 16 143/80 H 91 Room Air
[2023-04-23] MEDS: ALPRAZolam 0.5 MG TABLET PO SCH (08:55)
[2023-04-23] MEDS: MULTIVITAMIN TAB PO SCH (08:55)
[2023-04-23] MEDS: DOCUSATE SODIUM 100 MG CAP PO SCH ×2 (08:55→21:14)
[2023-04-23] MEDS: SERTRALINE HCL 50 MG TABLET PO SCH (08:55)
--- NOTE | 2023-04-23 13:36 | Hospitalist Progress Note ---
Date of Service April 23, 2023 Assessment & Plan (1) Finger infection: Plan: 87yo female presenting with pain, swelling and redness of her left index finger following a small cut sustained 04/13.0 - 04/16 MRI: Circumferential subcutaneous edema of the index finger, concerning for cellulitis. No definite flexor or extensor tenosynovitis. -Orthopedic Surgery consulted -I&D Septic Flexor Tenosynovitis 04/[address] Mccord -wound culture pending, NGTD -Repeat I&D Septic Flexor Tenosynovitis 04/[address] Mccord - Wound culture x2 pending, NGTD -Follow blood cultures - not drawn on admission, pt has already received 4 doses of abx. Will hold off on drawing cultures now. - Febrile PM 04/17, infection progression, pt feeling worse --> blood cultures ordered 04/18, no growth x5 days -Continue antibiotic coverage - Vancomycin and Ceftriaxone, started 04/17 -no pets at home or concern for pasteurella -Will consult ID 04/24 -Tylenol and [place] prn for pain (2) Hypercholesterolemia: Plan: Chronic. Stable -Continue Pravastatin 20mg po qHS (3) Hypothyroidism: Plan: Stable. 10/2022:TSH 1.887 -Continue home dose of Synthroid Plan Continued inpatient stay Admission and Anticipated Discharge Date Admission Date: April 16, 2023 Supervising Physician Co-Signing Physician Notes Attending Attestation - Chart reviewed, care plan d/w HATTIE Huitron. I agree with the cohen components of her documentation with the following additional diagnosis - Septic/infective tenosynovitis of left hand - 2nd finger. POD #2 s/p repeat I/D by orthopedics. Prior culture from initial I/D is negative. Cultures from 2nd I/D remain negative. Cont current antibiotics. Plan - ID consultation. IV abx upon discharge? Transition to PO abx? Hiram Schultz MD Subjective Patient lying in bed, feels well. States that she feels like she can move her finger more today but is limited by the dressing. Denies fevers or chills. Still with good appetite and having bowel movements Review of Systems Review of Systems: All systems reviewed & are unremarkable except as noted in Subjective Physical Exam Physical Exam: General: WN/WD, NAD, VS as above Resp: normal respiratory effort, lungs clear to auscultation CV: RRR, no murmur, no edema Extremities: left hand: bandage intact over 2nd digit. Dressing c/d/i. Sensation intact. Very limited range of motion of 2nd digit. Neuro: A&O x3, Results & Data Results & Data Vital Signs (Past 12 Hours) Vital Signs Temp Pulse Resp BP Pulse Ox O2 Del Method 04/23/23 07:44 37.0 C 61 17 136/55 L 94 Room Air Laboratory Results cbc reviewed Microbiology 04/21/23 17:02 Gram Stain - Final Finger,Left Index Aerobic and Anaerobic Culture - Preliminary No growth to date. 04/21/23 17:02 Gram Stain - Final Finger,Left Index Aerobic and Anaerobic Culture - Preliminary No growth to date. 04/18/23 13:41 Gram Stain - Final Finger,Left Index Aerobic and Anaerobic Culture - Final No growth 04/18/23 10:12 Aerobic Blood Culture - Final Blood No growth in Aerobic bottle after 5 days. Anaerobic Blood Culture - Final No growth in Anaerobic bottle after 5 days. 04/18/23 10:08 Aerobic Blood Culture - Final Blood No growth in Aerobic bottle after 5 days. Anaerobic Blood Culture - Final No growth in Anaerobic bottle after 5 days. PG Care Time/CCT Total # of Minutes Spent Total Time Spent with Patient: Total time spent is greater than 50% in coordination of care (as documented) at patient's floor/unit and/or counseling patient: Coding Level of Care Code 46515 SUB INP/OBS CARE 2/35MIN Diagnoses Finger infection L08.9 Hypercholesterolemia E78.00 Hypothyroidism E03.9
[2023-04-23] MEDS: MELATONIN 3 MG TAB PO PRN (21:13)
[2023-04-23] MEDS: SENNA 8.6 MG TAB PO SCH (21:13)
[2023-04-23] MEDS: PRAVASTATIN SOD 20 MG TAB PO SCH (21:14)
[2023-04-24] MEDS: LEVOTHYROXINE SODIUM 50 MCG TABLET PO SCH (04:54)
[2023-04-24] MEDS: VANCOMYCIN HCL 1,000 MG in SODIUM CHLORIDE 0.9% 250 ML IV SCH (04:55)
--- NOTE | 2023-04-24 06:46 | Orthopedic Progress Note ---
Date of Service April 24, 2023 Assessment & Plan (1) Flexor tenosynovitis of finger: Plan: Postop day #3 repeat I&D septic flexor tenosynovitis, postop day #6 initial I&D. Continue daily dressing changes. Continue antibiotics as per medicine. Currently cultures are with no growth. Encouraged aggressive range of motion actively and passively. Continue occupational therapy while inpatient. Per hospitalist note planning on ID consult to aid in antibiotic choice. At this point no additional surgery is anticipated as patient continues to improve. In follow-up should see certified [place] therapist [place] [facility] [place] 3 days post discharge. She should follow-up with Dr. Mccord's physician librarian assistant 10 to 14 days postoperatively. She can call [phone] for an appointment. Admission and Anticipated Discharge Date Admission Date: April 16, 2023 Subjective Patient resting in bed comfortably. Mild pain but improving. No other complaints. Denies chest pain, sob, dizziness, LIN, n/v/d, fever or chills. Review of Systems Review of Systems: All systems reviewed & are unremarkable except as noted in Subjective Physical Exam Physical Exam: Left hand: Dressing with minimal serous drainage proximal incision. Dressing was removed. Distal incisions are clean, dry, intact. Palmar incision is well- approximated with minimal serous drainage from proximal aspect of incision where packing was previously removed. Mild erythema and swelling, improving. Overall improved appearance from previous. New dressing applied: Adaptic, 4 x 4, Kerlix. Results & Data Vital Signs (Past 12 Hours) Vital Signs Temp Pulse Resp BP Pulse Ox O2 Del Method 04/23/23 21:35 Room Air 04/23/23 21:07 36.6 C 67 18 164/79 H 93 Room Air
[2023-04-24] MEDS: MULTIVITAMIN TAB PO SCH (07:38)
[2023-04-24] MEDS: SERTRALINE HCL 50 MG TABLET PO SCH (07:38)
[2023-04-24] MEDS: DOCUSATE SODIUM 100 MG CAP PO SCH ×2 (07:38→19:45)
[2023-04-24] MEDS: ALPRAZolam 0.5 MG TABLET PO SCH (07:40)
[2023-04-24 10:00] LABS: Hematocrit (blood only) 43.8 % (37.0-47.0); Hemoglobin 14.1 g/dl (12.0-16.0); Mean Corpuscular Hemoglobin 31.9 pg (25.0-34.0); Mean Corpuscular Hgb Conc 32.2 g/dL (32.0-36.0); Mean Corpuscular Volume 99.1 fL (80.0-100.0); Mean Platelet Volume 10.9 fL (9.4-12.4); Platelet Count 208 K/uL (130-400); RDW Coefficient of Variation 13.8 % (11.5-14.5); RDW Standard Deviation 51.3 fL (36.4-46.3); Red Blood Count 4.42 M/uL (4.20-5.40); White Blood Count 8.52 K/ul (4.8-10.8)
[2023-04-24 10:11] LABS: Creatinine Clr Calc Pharmacy 63.1 ml/min; Est GFR (African American) 93.8 ml/min
--- NOTE | 2023-04-24 10:29 | Pharmacy Report ---
Pharmacy PK ABX Note - Date of Service April 24, 2023 - Assessment and Plan Assessment 87 year old F receiving Vancomycin and Ceftriaxone for treatment of finger cellulitis/tenosynovitis. POD #1 debridement. Renal function stable. Operative cultures pending. * Day 9 of antimicrobial therapy 04/24: Reviewed vancomycin level which is predicting an AUC/ARELI below goal range. Increase vancomycin regimen. ID consult pending. 04/21: Per provider, patient may need to consider OR for washout pending stagnant clinical response. Will consider repeat level and evaluate need for dose increase in next 24-48 hours as needed pending duration of therapy and ongoing clinical response Plan Vancomycin * Current regimen: vancomycin 1000 mg IV every 12 hours * Trough level obtained 04/24/23 @ 0934 resulted as 15.7 mcg/mL. This predicted to achieve target AUC/ARELI of 400-600 mg/L.hr with low probability * Increase regimen to vancomycin 1250mg Q12H to achieve a higher likelihood of goal AUC/ARELI * Predicted AUC at steady state with increase: 544 mg/L.hr * Will repeat level in the next 48-72 hours if therapy is continued and/or change in patient clinical status Pharmacy will continue to follow and will adjust dose/frequency as necessary. Thank you. Pharmacy has transitioned to AUC monitoring for vancomycin. AUC/ARELI is the preferred PK/PD target and is associated with decreased risk of nephrotoxicity compared to traditional trough targets.
--- NOTE | 2023-04-24 15:35 | Hospitalist Progress Note ---
Date of Service April 24, 2023 Assessment & Plan (1) Finger infection: Plan: 87yo female presenting with pain, swelling and redness of her left index finger following a small cut sustained 04/13.0 - 04/16 MRI: Circumferential subcutaneous edema of the index finger, concerning for cellulitis. No definite flexor or extensor tenosynovitis. -Orthopedic Surgery consulted -I&D Septic Flexor Tenosynovitis 04/[address] Mccord -wound culture pending, NGTD -Repeat I&D Septic Flexor Tenosynovitis 04/[address] Mccord - Wound culture x2 pending, NGTD -Follow blood cultures - not drawn on admission, pt has already received 4 doses of abx. Will hold off on drawing cultures now. - Febrile PM 04/17, infection progression, pt feeling worse --> blood cultures ordered 04/18, no growth x5 days -Continue antibiotic coverage - Vancomycin and Ceftriaxone, started 04/17 -Ceftriaxone last dose was 04/23, will await ID recommendations before restarting -no pets at home or concern for pasteurella - ID consult 04/24 --> patient spoke with him this morning awaiting note with recommendation -Tylenol and Shohola prn for pain (2) Hypercholesterolemia: Plan: Chronic. Stable -Continue Pravastatin 20mg po qHS (3) Hypothyroidism: Plan: Stable. 10/2022:TSH 1.887 -Continue home dose of Synthroid Plan Continued inpatient stay Admission and Anticipated Discharge Date Admission Date: April 16, 2023 Supervising Physician Co-Signing Physician Notes Attending Attestation - Chart reviewed, care plan d/w HATTIE Huitron. I agree with the cohen components of her documentation with the following additional diagnosis - Septic/infective tenosynovitis of left hand - 2nd finger. All cultures from her I/D procedures remain surprisingly negative. s/p ID consultation today - awaiting final recs from ID. Hopefully home tomorrow. Hiram Schultz MD Subjective Patient lying in bed. Continues to feel well, does feel like she has slightly more movement in her finger today no fevers or chills overnight. Is hopeful for discharge Review of Systems Review of Systems: All systems reviewed & are unremarkable except as noted in Subjective Physical Exam Physical Exam: General: WN/WD, NAD, VS as above Resp: normal respiratory effort, lungs clear to auscultation CV: RRR, no murmur, no edema Extremities: left hand: bandage intact over 2nd digit. Dressing c/d/i. Sensation intact. Very limited range of motion of 2nd digit. Neuro: A&O x3, Results & Data Results & Data Vital Signs (Past 12 Hours) Vital Signs Temp Pulse Resp BP BP Pulse Ox O2 Del Method 04/24/23 15:21 95 Room Air 04/24/23 15:12 37.3 C 70 16 127/73 91 Room Air 04/24/23 07:53 Room Air 04/24/23 07:14 36.7 C 62 16 169/93 H 94 Room Air Laboratory Results CBC reviewed Microbiology 04/21/23 17:02 Gram Stain - Final Finger,Left Index Aerobic and Anaerobic Culture - Preliminary No growth to date. 04/21/23 17:02 Gram Stain - Final Finger,Left Index Aerobic and Anaerobic Culture - Preliminary No growth to date. 04/18/23 13:41 Gram Stain - Final Finger,Left Index Aerobic and Anaerobic Culture - Final No growth PG Care Time/CCT Total # of Minutes Spent Total Time Spent with Patient: Total time spent is greater than 50% in coordination of care (as documented) at patient's floor/unit and/or counseling patient: Coding Level of Care Code 38374 SUB INP/OBS CARE 2/35MIN Diagnoses Finger infection L08.9 Hypercholesterolemia E78.00 Hypothyroidism E03.9
[2023-04-24] MEDS: VANCOMYCIN HCL 1,250 MG in SODIUM CHLORIDE 0.9% 250 ML IV SCH (15:55)
--- NOTE | 2023-04-24 16:33 | Infectious Disease Consult ---
Date of Consultation April 24, 2023 Assessment & Plan (1) Flexor tenosynovitis of finger: Plan Ayesha Aquino is an 87-year-old woman who presents to [facility] on 04/16/23 with pain, swelling and redness of her L index finger after having a small cut on her finger from 04/13 (while arranging artificial wreaths), s/p I&D on 04/18/23 (significant purulence) and 04/21/23 (serous fluid), OR cx from 04/18 and 04/21 NGTD. ID is consulted for flexor tenosynovitis. Appears to be flexor tenosynovitis that was initially precipitated by a cut (traumatic inoculation with contiguous spread), which would most likely be bacterial/pyogenic infectious tenosynovitis (pathogens including Staph, Strep). OR cx from 04/18 and 04/21 were both NGTD though this was after being on vancomycin and ceftriaxone for ~2 days. OR and imaging without evidence of PIP joint infection nor involvement of bone. The patients original wound on 04/13 was from an artificial (plastic) wreath and was not from plant matter. She does not have any recent exposure to gardening (except for watering houseplants) nor fish tanks/fresh water, no animal bites/scratches, thus appears to be lower risk for Sporothrix (did not report nodular lymphangitis, rather only reported local spread), mold, Nocardia, and Mycobacterial infection at this timethough if sx recur would send for bacterial/fungal/AFB cx. She has undergone source control with I&D x2. While inpatient, would continue empiric IV vancomycin and ceftriaxone, and can transition to empiric PO doxycycline and Augmentin to complete a 14-day course after last OR. ID Problem List: 1.L 2nd finger infectious flexor tenosynovitis Recommendations: - Can continue IV vancomycin (dosed per pharmacy) and ceftriaxone 2g IV Q24H while inpatient - If will be discharging, can change to doxycycline 100 mg PO Q12H and Augmentin 875 mg PO Q12H to complete a 14-day total course after last OR (04/21/23- 05/04/23) - Close PCP and hand surgery follow-up to ensure continued clinical improvement - F/u OR cx until finalized - If recurrence/worsening in the future requiring additional OR, please send for bacterial g/s and cx, fungal stain and cx, and AFB stain and cx Plan discussed with hospitalist. Thank you for letting ID participate in the care of this patient. ID will sign off at this time. If questions, please contact the [facility] call center at [phone]. Rena Leary MD, [facility] Infectious Diseases [facility] direct line: [phone] Consultation Information Consultation was provided via telemedicine using two-way real-time interactive telecommunication between the patient and the telemedicine provider. For the duration of the visit, the provider was performing the assessment from a different facility than the patient. This includesuse of bluetooth stethoscope forauscultationperformed by the telepresenter that the telemedicine provider can hear if described in the physical exam. Grip Assembler contact information: Please call [facility] Call Center . (Phone Number For Physician Use Only) After establishing a telemedicine visit, patient was: Patient was verified with two unique identifiers, Patient/authorized rep acknowledged consent and understanding and Gave permission to continue telehealth session Time Spent with Patient: Initial => 75 min History of Present Illness Reason for Consultation: L 2nd finger flexor tenosynovitis Attending Physician: Hiram Schultz MD History of Present Illness Ayesha Aquino is an 87-year-old woman who presents to [facility] on 04/16/23 with pain, swelling and redness of her L index finger after having a small cut on her finger from 04/13 (while arranging artificial wreaths), s/p I&D on 04/18/23 (significant purulence) and 04/21/23 (serous fluid), cx NGTD. ID is consulted for flexor tenosynovitis. The patient initially developed a small cut on her L index finger near her PIP joint, while making holiday wreaths on 04/13/23. She reports that these wreaths were only artificial and that there were no real plants involved in the wreath- making. She washed out the cut, put antibiotic ointment on it and covered it with a bandage. On 04/15/23 she began noticing increased redness, swelling and pain in her left index finger which has steadily increased. The redness, swelling, and discomfort spread to her L palmar surface and to her L middle finger as well. No fevers or chills. In the ED on 04/16, afebrile, though T37.7 on 04/17. WBC of 12. 04/16 MRI: Circu mferential subcutaneous edema of the index finger, concerning for cellulitis; no definite flexor or extensor tenosynovitis. She was seen by ortho and on 04/18 s/p I&D which yielded significant purulence and infection seen throughout the flexor tendon sheath. She underwent repeat I&D on 04/21/23 which showed only serous fluid and no further gross purulence. She has been on vancomycin and ceftriaxone since admission. She has not gardened or repotted any house plants recently; she has only watered her houseplants. She has also been knitting; the yarn is standard storebought yarn. She enjoys mostly shopping and indoor activities. Her family members have a cat and a dog; the patient says both animals keep their distance and she has not been scratched/bitten by any animals. No fishtanks or other freshwater exposure. Allergies Allergy/AdvReac Type Severity Reaction Status Date / Time alendronate sodium Allergy Unknown CAN'T Verified 04/16/23 21:41 REMEMBER Home Medications Medication Instructions Recorded Confirmed Type acetaminophen 650 mg 650 mg PO DIRECTED PRN Pain 06/10/22 04/16/23 History tablet,extended release jzdppzn-axntgsqwduksj-yqlzocpn 250 1 tab PO Q6H PRN Headache 06/10/22 04/16/23 History mg-250 mg-65 mg tablet (Excedrin Migraine) melatonin 10 mg tablet 10 mg PO HS PRN Sleep 06/10/22 04/16/23 History meloxicam 7.5 mg tablet 7.5 mg PO DAILY #30 tabs 12/19/22 04/16/23 Rx sertraline 100 mg tablet 150 mg (1.5 x 100 mg) PO DAILY 01/20/23 04/16/23 Rx #135 tabs levothyroxine 50 mcg tablet 50 mcg PO DAILY #90 tabs 02/14/23 04/16/23 Rx pravastatin 20 mg tablet 20 mg PO HS #90 tabs 02/16/23 04/16/23 Rx alprazolam 0.5 mg tablet 0.5 mg PO DAILY anxiety 04/16/23 04/16/23 History Patient History Medical History Encounter for pre-operative examination Hypertension Sciatica of right side Osteoporosis Gait disturbance Eustachian tube dysfunction Chest pain Carpal tunnel syndrome Abnormal weight gain Spondylolisthesis, lumbar region Spinal stenosis, lumbar region, with neurogenic claudication Lumbar disc disease Surgical History History of back surgery History of carpal tunnel surgery History of Neuroplasty Decompression Median Nerve At Carpal Tunnel History of tonsillectomy and adenoidectomy History of total hysterectomy with bilateral salpingo-oophorectomy (BSO) Family History Father Coronary heart disease Arthritis Heart disease Myocardial infarction Mother Acute subdural hematoma Uncle Diabetes Brother Diabetes Sister Thyroid cancer Aunt Breast cancer Denies family history of Ovarian cancer Prostate cancer Colorectal cancer Social History Smoking Status: Never smoker Second Hand Exposure: Yes (her smoked); Do You Dip or Chew Tobacco: No; Hx Alcohol Use: Yes Alcohol type: wine Hx Substance Use: No Preferred Language: Armenian Communication Ability: Effective Visual Impairment: Limited Hearing Ability: Normal Tower Hand Required: No Beliefs That Will Affect Care: None marital status: Current Living Situation: Family Current Living Situation Comment: lives in split home with daughter and son-in-law living on the other side current occupational status: retired 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 General: Well-appearing, no acute distress HEENT: Conjunctivae non-injected, sclerae anicteric, MMM, OP clear. Resp: Respirations nonlabored. Abd: Soft, nontender, nondistended. Normal bowel sounds throughout. No masses or organomegaly. Back: No tenderness to palpation along spine Ext: Warm and well-perfused. L hand in surgical dressing, with surrounding warmth and swelling. Skin: No rashes or lesions. Neuro: Alert & interactive. Grossly non-focal. Psych: Pleasant, appropriate. Results & Data Vital Signs (Past 12 Hours) Vital Signs Temp Pulse Resp BP BP Pulse Ox O2 Del Method 04/24/23 15:21 95 Room Air 04/24/23 15:12 37.3 C 70 16 127/73 91 Room Air 04/24/23 07:53 Room Air 04/24/23 07:14 36.7 C 62 16 169/93 H 94 Room Air Diagnostic Findings Diagnostics: 04/21 OR report FINDINGS: A small amount of serous fluid. No gross purulence. This was sent for culture. I open the previous middle lateral incision over the DIP joint. I dissected bluntly down to the flexor tendon sheath and opened this up. I then performed through and through irrigation from proximal to distal with a 14-gauge Angiocath and a 10 cc control syringe until fluid returned was clear. Proximal incision was copiously irrigated as well with cystoscopy tubing. Tourniquet was let down, hemostasis was obtained with bipolar electro cautery, skin was closed with 4-0 nylon in a running fashion over the proximal incision and a single simple stitch in the distal incision. Patient was placed in soft dressings in the PACU stable condition postoperatively monitor culture results. Immediate unrestricted range of motion begin physical therapy. 04/18 OR report FINDINGS: Gross purulence seen spreading outside the flexor tendon sheath system. A whole lot of infection in the flexor tendon sheath with purulence in the flexor tendon sheath. No evidence of PIP joint infection. Cut was seen on the radial aspect of the index finger just distal to the PIP joint.. This was sent for culture. DESCRIPTION OF OPERATION: The patient was identified. The proper procedure and site were verified. A surgical time out was taken and observed. After administration of anesthesia, the patient's arm prepped and draped in the usual sterile fashion. I made a longitudinal incision over the A1 deny of the left index finger A1 deny. Dissection was carried out through the skin and subcutaneous tissues digital nerves were retracted. A significant amount of purulence was seen in and around the a 1 deny. I irrigated the purulence. I then made a second separate incision over the DIP joint in the middle lateral approach. I dissected bluntly down to the flexor tendon sheath and opened this up. I then performed through and through irrigation from proximal to distal with a 14-gauge Angiocath and a 10 cc control syringe until fluid returned was clear. Proximal incision was copiously irrigated as well with cystoscopy tubing. Tourniquet was let down, hemostasis was obtained with bipolar electro cautery, skin was closed with 4-0 nylon in a running fashion over the proximal incision and a single simple stitch in the distal incision. Patient was placed in soft dressings in the PACU stable condition postoperatively monitor culture results. Immediate unrestricted range of motion begin physical therapy. Due to the complex nature of the procedure, the entire surgery was performed with the operational assistance of Rhina Bull PA-C.The promotional advertising assistant, under direct supervision, was involved in the actual performance of all aspects of the surgical procedure including hemostasis, tissue retraction and incision, instrument management, patient positioning, and wound closure. 04/16 Hand MRI 1. No MR evidence of osteomyelitis. 2. No fluid collection or abscess. 3. Circumferential subcutaneous edema of the index finger, concerning for cellulitis. No definite flexor or extensor tenosynovitis. Micro Summary: /8 L index finger: rare epis, rare WBCs, no orgs; cx NGTD 04/18 Wound L index: rare epis, many polys, no orgs; cx NG 04/18 BCx x2: NG (drawn after 2 days of abx) Antibiotic Summary: ceftriaxone (04/16-present) IV vancomycin (04/16-present) Prior ampicillin (04/16)
[2023-04-24] MEDS: PRAVASTATIN SOD 20 MG TAB PO SCH (19:42)
[2023-04-24] MEDS: SENNA 8.6 MG TAB PO SCH (19:42)
[2023-04-24] MEDS: HYDROCODONE/ACETAMOPHEN 5/325MG TAB PO PRN (22:12)
[2023-04-24] MEDS: MELATONIN 3 MG TAB PO PRN (22:12)
[2023-04-25] MEDS: VANCOMYCIN HCL 1,250 MG in SODIUM CHLORIDE 0.9% 250 ML IV SCH (03:07)
[2023-04-25] MEDS: LEVOTHYROXINE SODIUM 50 MCG TABLET PO SCH (04:59)
[2023-04-25 07:25] LABS: Est GFR (African American) 94.8 ml/min; Est GFR (Non-African American) 81.8 ml/min
[2023-04-25 07:26] LABS: Creatinine Clr Calc Pharmacy 65.1 ml/min
[2023-04-25] MEDS: ACETAMINOPHEN 325 MG TAB PO PRN (08:24)
[2023-04-25] MEDS: ALPRAZolam 0.5 MG TABLET PO SCH (08:25)
[2023-04-25] MEDS: MULTIVITAMIN TAB PO SCH (08:25)
[2023-04-25] MEDS: SERTRALINE HCL 50 MG TABLET PO SCH (08:25)
[2023-04-25] MEDS: DOCUSATE SODIUM 100 MG CAP PO SCH (08:26)
--- NOTE | 2023-04-25 08:59 | Discharge Summary ---
Discharge Summary Date of Service April 25, 2023 Notes For Next Care Provider -Final cultures from OR are still pending -Doxycyline and Augmentin for 10 days -Will need therapy for the finger and close follow up with ortho Medication Changes From Visit -Doxycycline and Augmentin for 10 days Admission HPI Per Admitting Provider Ayesha Aquino is an 87yo female with history of HLP, HTN, Hypothyroidism presenting with infection of left index finger. Patient was making holiday wreaths on 04/13/23 when she sustained a small cut to her finger - left index finger near the PIP joint. She washed out the cut, put antibiotic ointment on it and covered it with a bandage. On 04/15/23 she began noticing increased redness, swelling and pain in her left index finger which has steadily increased. She now has some increased discomfort and redness involving her middle finger and the palmar surface of her hand. She is having difficulty bending her fingers. She denies fever, chills, nausea, vomiting. Pain is well controlled at this time. ER Course: Vancomycin Unasyn Toradol Principal Dx & Hospital Course #1 = Principal Diagnosis (1) Finger infection: 87yo female presenting with pain, swelling and redness of her left index finger following a small cut sustained 04/13.0 - 04/16 MRI: Circumferential subcutaneous edema of the index finger, concerning for cellulitis. No definite flexor or extensor tenosynovitis. -Orthopedic Surgery consulted -I&D Septic Flexor Tenosynovitis 04/[address] Mccord -wound culture pending, NGTD -Repeat I&D Septic Flexor Tenosynovitis 04/[address] Mccord - Wound culture x2 pending, NGTD -Follow blood cultures - not drawn on admission, pt has already received 4 doses of abx. Will hold off on drawing cultures now. - Febrile PM 04/17, infection progression, pt feeling worse --> blood cultures ordered 04/18, no growth x5 days -Continue antibiotic coverage - Vancomycin and Ceftriaxone, started 04/17 -Ceftriaxone last dose was 04/23, will await ID recommendations before restarting -no pets at home or concern for pasteurella - ID consult 04/24 --> doxycycline 100mg and Augmentin 875mg BID x10 days at discharge -Tylenol for pain, continue ice and elevation (2) Hypercholesterolemia: Chronic. Stable -Continue Pravastatin 20mg po qHS (3) Hypothyroidism: Stable. 10/2022:TSH 1.887 -Continue home dose of Synthroid Plan Discharge to home with Sister Discharge Exam General: WN/WD, NAD, VS as above Resp: normal respiratory effort, lungs clear to auscultation CV: RRR, no murmur, Extremities:Left hand dressing c/d/i, patient with slight increase in ROM of 2nd finger. palm and 3rd finger with continued decreasing edema Neuro: A&O x3, Updated Medication List Medication Instructions Recorded Confirmed Type acetaminophen 650 mg 650 mg PO DIRECTED PRN Pain 06/10/22 04/16/23 History tablet,extended release aqwsntx-ayunmvdyvvbtx-ewhonioh 250 1 tab PO Q6H PRN Headache 06/10/22 04/16/23 History mg-250 mg-65 mg tablet (Excedrin Migraine) melatonin 10 mg tablet 10 mg PO HS PRN Sleep 06/10/22 04/16/23 History meloxicam 7.5 mg tablet 7.5 mg PO DAILY #30 tabs 12/19/22 04/16/23 Rx sertraline 100 mg tablet 150 mg (1.5 x 100 mg) PO DAILY 01/20/23 04/16/23 Rx #135 tabs levothyroxine 50 mcg tablet 50 mcg PO DAILY #90 tabs 02/14/23 04/16/23 Rx pravastatin 20 mg tablet 20 mg PO HS #90 tabs 02/16/23 04/16/23 Rx alprazolam 0.5 mg tablet 0.5 mg PO DAILY anxiety 04/16/23 04/16/23 History amoxicillin 875 mg-potassium 1 tab PO Q12H 10 days #20 tabs 04/25/23 Rx clavulanate 125 mg tablet doxycycline hyclate 100 mg capsule 100 mg PO BID 10 days #20 caps 04/25/23 Rx Hospital Stay Data Consultations 04/16/23 21:34 ED Decision to Admit Stat 04/16/23 22:18 Consult Orthopedic Surgery Routine 04/24/23 08:36 Consult Infectious Diseases Routine Procedures Performed Operation Date: 04/21/23 10:55 Actual Procedures p Left Index Finger Irrigation and Debridement of Septic Flexor Tenosynovitis(Left) - Cipriano Mccord MD Diagnostic Imagining Performed 04/16/23 22:18 MRI Hand [MR hand LT wo/w con] Urgent Pending Results Patient Have Any Pending Studies at Discharge: Yes Discharge Instructions Given to Patient (Per Discharging Provider) You underwent left index finger incision and drainage for flexor tenosynovitis with Dr. Mccord on 04/18/23. Cultures were obtained in the OR. Your antibiotics will be adjusted based on the results of the culture once they return. You should elevate your hand and apply ice 20 minutes on/20 minutes off several times a day to help with pain and swelling. You should continue to bend your fingers and move your hand as much as possible, increase as tolerated. You may change your dressing as needed with non-adhesive dressing and a light bandage. After the packing has been removed, you may wash around the area gently with soap/water but do not completely submerge until all stitches have been removed and the wound has healed. Your stitches will need to be removed in 10-14 days. Follow-up with Dr. Mccord in orthopedic surgery clinic in 10-14 days. Please call [facility] at [phone] to make an appointment. You will also need to see the certified hand therapist at [facility] 2 to 3 days post discharge. Call the number above to schedule. Total Time Total Time Spent Total Time Spent (In Minutes): 35 Coding Level of Care Code 85386 INP/OBS DISCH >30 MIN Diagnoses Finger infection L08.9 Hypercholesterolemia E78.00 Hypothyroidism E03.9
[2023-04-25] MEDS ORDERED: cefTRIAXone SODIUM 2,000 MG in DEXTROSE 5 % MINI-B 50 ML IV SCH (09:00)
[2023-04-26] MEDS ORDERED: VANCOMYCIN LEVEL ONE (03:00)
== END 2023-04-25 11:33 | disposition home or self-care (01) | DRG 514 ==
LOC: ED 17:01 → SUATTDRO 22:18 → 3N 22:18

== ENCOUNTER 2024-04-30 05:54 | Inpatient (IN) ==
--- NOTE | 2024-04-01 11:21 | PAT Medication Instructions ---
Medication Instructions Date of Service April 01, 2024 Home Medications Medication Instructions Recorded pravastatin 20 mg tablet 20 mg PO HS #90 tabs 02/14/24 oxycodone-acetaminophen 5 mg-325 1 tab PO Q6H PRN pain #14 tabs 03/28/24 mg tablet (Percocet) acetaminophen 650 mg tablet,extended release 650 mg PO DIRECTED PRN cnyucoa-zcbjqrasczqvy-uuiwoewi 250 mg-250 mg-65 mg tablet (Excedrin Migraine) 1 tab PO UD PRN melatonin 10 mg tablet 20 mg PO HS PRN pravastatin 20 mg tablet 20 mg PO HS oxycodone-acetaminophen 5 mg-325 mg tablet (Percocet) 1 tab PO Q6H PRN albuterol sulfate 90 mcg/actuation aerosol inhaler 1 puff inhalation QID PRN alprazolam 0.5 mg tablet 0.5 mg PO DAILY PRN diclofenac sodium 75 mg tablet,delayed release 75 mg PO BID PRN diphenhydramine HCl 25 mg tablet (Sleep Aid (diphenhydramine)) 25 mg PO HS PRN levothyroxine 50 mcg tablet 50 mcg PO QAM lisinopril 10 mg tablet 10 mg PO QAM meloxicam 7.5 mg tablet 7.5 mg PO QAM sertraline 100 mg tablet 150 mg PO QAM Continue as directed acetaminophen 650 mg tablet,extended release 650 mg PO DIRECTED PRN(if needed) alprazolam 0.5 mg tablet 0.5 mg PO DAILY PRN(if needed) ASK your surgeon for instructions qjnkoqw-shjloyfesdhsc-qktxwuoj 250 mg-250 mg-65 mg tablet (Excedrin Migraine) 1 tab PO UD PRN diclofenac sodium 75 mg tablet,delayed release 75 mg PO BID PRN meloxicam 7.5 mg tablet 7.5 mg PO QAM DO NOT take the morning of surgery lisinopril 10 mg tablet 10 mg PO QAM Take morning of surgery With a small sip of water, OTHERWISE NOTHING TO EAT OR DRINK AFTER MIDNIGHT: oxycodone-acetaminophen 5 mg-325 mg tablet (Percocet) 1 tab PO Q6H PRN(if needed) albuterol sulfate 90 mcg/actuation aerosol inhaler 1 puff inhalation QID PRN(use if needed; please bring with you to hospital day of surgery if possible) levothyroxine 50 mcg tablet 50 mcg PO QAM sertraline 100 mg tablet 150 mg PO QAM Take evening before surgery melatonin 10 mg tablet 20 mg PO HS PRN(if needed) pravastatin 20 mg tablet 20 mg PO HS oxycodone-acetaminophen 5 mg-325 mg tablet (Percocet) 1 tab PO Q6H PRN(if needed) albuterol sulfate 90 mcg/actuation aerosol inhaler 1 puff inhalation QID PRN(if needed) diphenhydramine HCl 25 mg tablet (Sleep Aid (diphenhydramine)) 25 mg PO HS PRN (if needed) Other Notes If you have any questions please call us at [phone] or [phone] or [phone] or [phone]
--- NOTE | 2024-04-05 13:40 | Anesthesiology Consultation ---
Date of Service April 05, 2024 Assessment & Plan (1) Encounter for pre-operative examination: - Case discussed in detail with Dr. Metz who advised PCP clearance prior to surgery given age, abnormal EKG and xy-ymzyoreibjk-aywxdeav response to workload note. Patient made aware, she denied questions or concerns. Workload note sent to [facility] PCP. Surgeon's office made aware. - ER 03/20/24 [facility]: "...acute on chronic back pain...Lab work shows a mild leukocytosis at 11.13, hemoglobin is normal, platelet count is normal, CMP does not show any evidence of any critical findings, urinalysis shows no obvious infection, patient denies any dysuria, will send for culture. CT imaging of the lumbar spine was obtained that shows evidence of neuroforaminal stenosis/spinal stenosis at multiple levels. I suspect this is the source of the patient's pain, no evidence of any compression fractures. We do not have any spinal surgery coverage this evening at this facility. Patient states she is following with Dr. Martínez. Following IV morphine and IV Zofran as well as IV Solu- Medrol, the patient stated she was feeling improved..." Chart Review Chart Review: Pending: Refer to Additional Notes / Consult section and Patient seen in Pre Admission Testing Teaching & Discussion Pre-Anesthesia Teaching/Discussion Notes: Instructed NPO after midnight before surgery, except medications with 15 cc of water. Medication instructions provided according to the PAT guidelines. History Surgery Operation Date: 04/30/24 07:15 Proposed Procedures p L2-L3 Lateral Lumbar Interbody Fusion and Cage Placement, Posterior Instrumentation with Removal of Hardware, Autograft and Exploration of Fusion, with Spinal Cord Monitoring - Rivera Martínez MD Height/Weight Height: 5 ft 2 in Weight: 78.8 kg Allergies Allergy/AdvReac Type Severity Reaction Status Date / Time alendronate sodium Allergy Unknown CAN'T Verified 04/01/24 10:24 REMEMBER was a long time ago Medications Home Medications Medication Instructions Recorded Confirmed Last Taken acetaminophen 650 mg 650 mg PO DIRECTED PRN Pain 06/10/22 04/01/24 Unknown tablet,extended release nwawklj-qkvyvyeuqfopr-mzhtbxwe 250 1 tab PO UD PRN Headache 06/10/22 04/01/24 Unknown mg-250 mg-65 mg tablet (Excedrin Migraine) melatonin 10 mg tablet 20 mg PO HS PRN Sleep 06/10/22 04/01/24 Unknown pravastatin 20 mg tablet 20 mg PO HS #90 tabs 02/14/24 04/01/24 Unknown albuterol sulfate 90 mcg/actuation 1 puff inhalation QID PRN hx 04/01/24 04/01/24 Unknown aerosol inhaler asthma, sob alprazolam 0.5 mg tablet 0.5 mg PO DAILY PRN anxiety 04/01/24 04/01/24 Unknown diclofenac sodium 75 mg 75 mg PO BID PRN Pain 04/01/24 04/01/24 Unknown tablet,delayed release diphenhydramine HCl 25 mg tablet 25 mg PO HS PRN Sleep 04/01/24 04/01/24 Unknown (Sleep Aid (diphenhydramine)) levothyroxine 50 mcg tablet 50 mcg PO QAM 04/01/24 04/01/24 Unknown lisinopril 10 mg tablet 10 mg PO QAM 04/01/24 04/01/24 Unknown meloxicam 7.5 mg tablet 7.5 mg PO QAM 04/01/24 04/01/24 Unknown sertraline 100 mg tablet 150 mg PO QAM 04/01/24 04/01/24 Unknown oxycodone-acetaminophen 5 mg-325 1 tab PO Q6H PRN pain #14 tabs 04/05/24 04/05/24 Unknown mg tablet (Percocet) Past Medical History Medical History (Updated 04/05/24 @ 14:00 by Elvia Kirkpatrick, GINA) Anxiety and depression History of asthma controlled, stable per pt; last used albuterol inhaler 2-3 weeks ago during increased physical activity History of diverticulitis (~1979) Hypercholesterolemia Hypertension controlled, stable per pt Hypothyroidism levothyroxine was for weight per pt - unknown further details regarding thyroid. Lumbar disc disease Osteoporosis Sciatica SOB (shortness of breath) on exertion occasional-resolves with albuterol inhaler Patient denies h/o stroke, seizures, heart attack, heart failure, DM, blood clots/DVTs or blood transfusions. Exercise / Class Metabolic Activity III < 4 Walking/Shop/Light housework (ambulates with rolling walker, occasional shortness of breath with increased activity such as using the vacuum which is infrequent with back limitations-denies chest discomfort) Past Family History Family History Father Coronary heart disease Arthritis Heart disease Myocardial infarction Mother Acute subdural hematoma Family history of reaction to anesthesia had a hard time to be put under Uncle Diabetes Brother Diabetes Sister Thyroid cancer Aunt Breast cancer Denies family history of Ovarian cancer Prostate cancer Colorectal cancer Past Surgical History Surgical History History of back surgery History of carpal tunnel surgery History of Neuroplasty Decompression Median Nerve At Carpal Tunnel - right History of endoscopy History of hand surgery (04/2023) left index finger for infection (resolved). can't bend left index finger. History of tonsillectomy and adenoidectomy History of total hysterectomy with bilateral salpingo-oophorectomy (BSO) Past Anesthesia History No Hx of Anesthesia Complications and Other (mother would "fight" going under the anesthesia) History of PONV No Hx of PONV and No Hx of Motion Sickness Social History Smoking Status: Never smoker Do You Dip or Chew Tobacco: No Hx Alcohol Use: Yes Alcohol type: wine alcohol intake frequency: holidays/special occasions only Hx Substance Use: No substance use type: does not use Review of Systems Snoring, denies witnessed apneas. Patient denies chest pain, reflux, fever, chills, cough, wheezing, or palpitations. Physical Exam Vital Signs Vitals BP 133/73 P 77 TEMP 99 SP02 95% on RA RESP 19 Physical Patient resting comfortably in chair in no acute distress, alert and oriented, non-diaphoretic, responding appropriately throughout visit Full cervical extension range of motion without pain TMD 3.5 finger breadths Mallampati Score 3 Dentition: edentulous, full upper and lower dentures Lungs: normal respiratory effort. Good air movement, clear throughout to auscultation, no adventitious breath sounds Cardiac: regular rate and rhythm, no murmurs noted Carotid arteries: negative bruit bilat Lab Results Anesthesia Preop Results Results Anesthesia Widget: WBC 11.13 K/ul (4.8-10.8) H 03/20/24 Hgb 14.2 g/dl (12.0-16.0) 03/20/24 Hct 41.7 % (37.0-47.0) 03/20/24 Plt 182 K/uL (130-400) 03/20/24 Na 139 mmol/L (136-145) 03/20/24 K 4.7 mmol/L (3.5-5.1) 03/20/24 Cl 106 mmol/L (98-107) 03/20/24 CO2 23 mmol/L (21-32) 03/20/24 BUN 41 mg/dl (6-23) H 03/20/24 Creat 0.98 mg/dl (0.6-1.2) 03/20/24 Glucose Level 118 mg/dl (70-99(Fasting)) H 03/20/24 PT 10.1 Seconds (9.0-12.0) 04/05/24 PTT 24 Seconds (21-31) 04/05/24 INR 0.9 (0.9-1.1) 04/05/24 Urine Color Yellow 03/20/24 Urine Appearance Clear (Clear) 03/20/24 Urine pH 6.5 (4.5-7.5) 03/20/24 Urine Specific [place] 1.022 (1.000-1.030) 03/20/24 Urine Protein Negative (Negative) 03/20/24 Urine Glucose (UA) Negative (Negative) 03/20/24 Urine Ketones Negative (Negative) 03/20/24 Urine Blood 1+ (Negative) H 03/20/24 Urine Nitrite Negative (Negative) 03/20/24 Urine Bilirubin Negative (Negative) 03/20/24 Urine Urobilinogen Negative (Negative) 03/20/24 Urine Leukocyte Esterase 2+ (Negative) H 03/20/24 Urine WBC (Auto) 11-20 /hpf (0-5) H 03/20/24 Urine RBC (Auto) 11-20 /hpf (0-2) H 03/20/24 Urine Hyaline Casts (Auto) 0-2 /lpf (0-2) 03/20/24 Urine Epithelial Cells (Auto) 0-2 /hpf (0-2) 03/20/24 Urine Bacteria (Auto) None Seen (None Seen) 03/20/24 Blood Type A Positive 04/05/24 Antibody Screen NEGATIVE 04/05/24 Testing Laboratory Results Urine culture 03/20/24: more than three types of organisms present, all moderate counts mixed probable skin priya. No further identifications or sensitivities to follow. Electrocardiogram Date: 04/05/24 NSR, rate [address] and T wave abnormality Chest X-Ray Date: 04/05/24 COPD with mild bilateral basilar scarring or atelectasis. Cervical Spine Date: 02/09/24 1. Multilevel cervical spondylosis as above. See discussion for detailed level by level analysis. 2. No destructive bony process is seen. 3. The cervical cord is normal in morphology and signal intensity.
[2024-04-30] MEDS: GABAPENTIN 300 MG CAP PO SCH (06:35)
[2024-04-30] MEDS: LR 15ML/HR IV SCH (06:35)
[2024-04-30] MEDS: LR 60ML/HR IV SCH (06:35)
[2024-04-30] MEDS: ACETAMINOPHEN 500 MG TAB PO SCH (06:35)
[2024-04-30] MEDS ORDERED: DROPERIDOL 5 MG/2 ML VIAL IV PRN (07:00)
[2024-04-30] MEDS ORDERED: ATROPINE SULFATE 0.1 MG/ML 10ML SYR IV PRN (07:00)
[2024-04-30] MEDS ORDERED: ePHEDrine sulfate 50 MG/ML AMP IV PRN (07:00)
[2024-04-30] MEDS ORDERED: LIDOCAINE 2% 2 ML VIAL/AMP(20MG/ML) INFIL ONE (07:12)
[2024-04-30] MEDS ORDERED: PROPOFOL IV EMULSION 10 MG/ML 20 ML VIAL IV ONE (07:13)
[2024-04-30] MEDS ORDERED: ROCURONIUM BROMIDE 10 MG/ML 5 ML VIAL IV ONE ×2 (07:17→10:34)
[2024-04-30] MEDS ORDERED: fentaNYL citrate PF 100 MCG/2 ML VIAL ONE ×3 (07:18→11:17)
--- NOTE | 2024-04-30 07:24 | History & Physical Bridge Note ---
Date of Service April 30, 2024 History & Physical Bridge Note I have examined the patient, reviewed the History & Physical and in the interval since the performance of the History & Physical I have noted the following changes of clinical significance: no changes noted
[2024-04-30] MEDS ORDERED: PHENYLEPHRINE HCL 10 MG/ML VIAL ONE (07:48)
[2024-04-30] MEDS ORDERED: DEXAMETHASONE SOD INJ 4 MG/ML VIAL ONE (07:50)
[2024-04-30] MEDS ORDERED: ONDANSETRON INJ 2 MG/ML 2 ML VIAL ONE (07:51)
[2024-04-30] MEDS: ceFAZolin 2000MG 2,000 MG/15 ML SYR IV SCH (08:00)
[2024-04-30] MEDS ORDERED: SUGAMMADEX SODIUM 200 MG/2 ML VIAL IV ONE ×2 (08:42→13:50)
[2024-04-30] MEDS ORDERED: ceFAZolin 330 MG/ML 1 GM VIAL ONE (11:55)
[2024-04-30] MEDS: GELATIN SPONGE SZ 100 ONE (12:13)
[2024-04-30] MEDS: GELATIN SPONGE 12-7MM ONE (12:19)
[2024-04-30] MEDS: VANCOMYCIN HCL 1000MG/20ML VIAL ONE (12:19)
[2024-04-30] MEDS: THROMBIN 5000 UNITS KIT ONE (13:47)
[2024-04-30] MEDS: BUPIVACAINE/EPINEPHRINE 0.5% MPF 1:200,000 30 ML VIAL ONE (13:47)
[2024-04-30] MEDS ORDERED: ONDANSETRON 4 MG OD TAB PO PRN (14:39)
[2024-04-30] MEDS ORDERED: MAGNESIUM HYDROXIDE SUSP 30 ML UDC PO PRN (14:39)
[2024-04-30] MEDS ORDERED: FAMOTIDINE 20 MG TAB PO PRN (14:39)
[2024-04-30] MEDS ORDERED: LORazepam 2 MG/1 ML VIAL IV PRN (14:39)
[2024-04-30] MEDS ORDERED: SOD PHOSPHATE/SOD BIPHOSPHATE ENEMA 132 ML BTL PR PRN (14:39)
[2024-04-30] MEDS ORDERED: PROMETHAZINE 12.5 MG/50.5 ML BAG IV PRN (14:39)
[2024-04-30] MEDS ORDERED: NALOXONE HCL 0.4 MG/1 ML VIAL/CARP IV PRN (14:39)
[2024-04-30] MEDS ORDERED: DO NOT ADMINISTER FLU VACCINE PRN (14:39)
[2024-04-30] MEDS ORDERED: DO NOT ADMINISTER PNEUMOCOCCAL VACCINE PRN (14:39)
[2024-04-30] MEDS ORDERED: ALUMINUM/MAGNESIUM SUSP 30 ML UDC PO PRN (14:39)
[2024-04-30] MEDS ORDERED: ONDANSETRON INJ 2 MG/ML 2 ML VIAL IV PRN (14:39)
[2024-04-30] MEDS ORDERED: METOCLOPRAMIDE HCL INJ 5 MG/ML 2 ML VIAL IV PRN (14:39)
[2024-04-30] MEDS ORDERED: HYDROmorphone INJ 0.5 MG/0.5 ML SYR IV PRN (14:39)
[2024-04-30] MEDS ORDERED: bisacodyL 10 MG SUPP PR PRN (14:39)
--- NOTE | 2024-04-30 14:39 | Post Operative Brief Note ---
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
[2024-04-30] MEDS ORDERED: ALBUTEROL HFA 8 GM INHALER INH PRN (14:44)
[2024-04-30] MEDS ORDERED: DIPHENHYDRAMINE HCL 25 MG PO PRN (14:44)
[2024-04-30] MEDS ORDERED: ALPRAZolam 0.5 MG TABLET PO PRN (14:44)
--- NOTE | 2024-04-30 14:46 | Fluoroscopy Report ---
FL lumbar spine 2-3V CLINICAL HISTORY: L2-L3 COMPARISON STUDY: CT 03/20/2024 FLUOROSCOPY TIME: 206.2 FLUOROSCOPY IMAGES: 10 EXPOSURE DOSE: 110.60 mGy FINDINGS: Posterior interbody grabiel and screw fusion hardware with discectomy is noted at what is label ed the L2-L3 level. The initial images demonstrate hardware at L3-S1 which is then removed. Overlying skin husam. IMPRESSION: Fluoroscopic assistance as above. ACT 112: Negative or not required by law. Electronically signed by: Rashid Zamora M.D. 04/30/2024 2:45 PM
[2024-04-30] MEDS: fentaNYL citrate PF 100 MCG/2 ML VIAL IV PRN (14:54)
--- NOTE | 2024-04-30 15:37 | Anesthesiology Progress Note ---
Date of Service April 30, 2024 Anesthesia Post Procedure Vital Signs Vital Signs: Temp Pulse Resp BP BP Pulse Ox O2 Del Method 04/30/24 15:30 69 14 104/58 L 98 Nasal Cannula 04/30/24 15:20 73 18 112/56 L 94 Nasal Cannula 04/30/24 15:10 72 16 120/52 L 96 Oxymask 04/30/24 15:00 71 13 105/50 L 99 Oxymask 04/30/24 14:50 62 14 124/50 L 100 Oxymask 04/30/24 14:40 67 13 131/65 100 Oxymask 04/30/24 14:37 36.5 C 66 12 134/56 L 98 Oxymask 04/30/24 06:20 36.9 C 78 20 151/87 H 93 Room Air O2 Flow Rate 04/30/24 15:30 2 04/30/24 15:20 2 04/30/24 15:10 3 04/30/24 15:00 4 04/30/24 14:50 6 04/30/24 14:40 6 04/30/24 14:37 6 04/30/24 06:20 Pain Intensity Lower Back: Pain Intensity: 6 Transfer of Care Handoff Completed per policy Notes Mental Status: alert / awake / arousable Patient Amnestic to Procedure: Yes Nausea / Vomiting: adequately controlled Pain: adequately controlled Airway Patency, RR, SpO2: stable & adequate BP & HR: stable & adequate Hydration State: stable & adequate Anesthetic Complications: no major complications apparent and Pt Satisfied with anesthetic care
[2024-04-30] MEDS: ACETAMINOPHEN 1,000 MG/100 ML VIAL IV PRN (16:28)
--- NOTE | 2024-04-30 16:50 | Hospitalist Consultation ---
Date of Consultation April 30, 2024 Assessment & Plan (1) Spinal stenosis, lumbar region, with neurogenic claudication: S/P L2-L3 Lateral Lumbar Interbody fusion and cage placement with Dr. Martínez 04/30 - Pain / dvt proh / post op abx per primary - EBL 300 cc, check AM CBC PT/OT/ dc dispo per primary (2) Hypertension: will hold lisinopril pending AM labs AM BMP (3) Anxiety: Continue Zoloft and home xanax (4) Hypothyroidism: continue synthroid (5) Hypercholesterolemia: continue statin Plan dispo: continued inpatient stay Thank you for allowing us to participate in the care of this patient, please reach out with any questions or concerns. Medicine will continue to follow Supervising Physician Co-Signing Physician Notes Attending Attestation & Consult Note: Pt seen/examined, chart reviewed, consult care plan d/w HATTIE Huitron. I agree w/ the cohen components of her consult documentation. 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 She underwent the following - L2-L3 Lateral Lumbar Interbody Fusion and Cage Placement, Posterior Instrumentation, posterior decompression, Removal of Hardware L3-4-5-S1 I saw the patient post-op on the surgical floor. She c/o feeling shaky. Otherwise no dyspnea, chest pain, abd pain or nausea/emesis. PMH/PSH/allergies/meds/sochx/famhx - reviewed VSS, afebrile gen - lying in bed, mildly uncomfortable, shaky/tremulous mouth - MM slightly dry neck - no JVD heart - RRR, s1 s2 lungs - CTA b/l abd - soft, NT, ND, BS+ ext - warm feet, pulses 2+ b/l, no edema psych - awake/alert A/P: 1. s/p significant lumbar spine surgery - elective - by Dr Martínez 2. hypothyroidism - TSH 12/05 wnl; cont synthroid 3. HTN - agree w/ holding ARMANDO; repeat creatinine am for stability 4. anticipation of acute blood loss anemia - CBC am 5. chronic benzo use - cont xanax Thank you for this consult. Medicine will follow with you. Hiram Schultz MD History of Present Illness Reason for Consultation: surgery Requesting Physician: Dr. Martínez Attending Physician: Rivera Martínez MD History of Present Illness Ayesha is a 88F who presents to the hospital for elective back surgery with Dr. Martínez. She has a past medical hx of anxiety, insomnia, hypothyroid, HLD. Patient seen shortly after coming up to the floor from the OR. Reports being sleepy and having some pain in her lower back. Denies pain radiating down her legs currently. confirms her medications. uses a cane or walker to get around at home. currently on 2L NC, weaned down to 1L during my encounter does not normally use oxygen at home Allergies Allergy/AdvReac Type Severity Reaction Status Date / Time alendronate sodium Allergy Unknown CAN'T Verified 04/30/24 06:14 REMEMBER was a long time ago Home Medications Medication Instructions Recorded Confirmed Type acetaminophen 650 mg 650 mg PO DIRECTED PRN Pain 06/10/22 04/30/24 History tablet,extended release kkrinbo-mlcbzlvkcfdgi-lvcproeq 250 1 tab PO UD PRN Headache 06/10/22 04/30/24 History mg-250 mg-65 mg tablet (Excedrin Migraine) melatonin 10 mg tablet 20 mg PO HS PRN Sleep 06/10/22 04/30/24 History pravastatin 20 mg tablet 20 mg PO HS #90 tabs 02/14/24 04/01/24 Rx albuterol sulfate 90 mcg/actuation 1 puff inhalation QID PRN hx 04/01/24 04/30/24 History aerosol inhaler asthma, sob alprazolam 0.5 mg tablet (Xanax) 0.5 mg PO DAILY PRN anxiety 04/01/24 04/30/24 History diclofenac sodium 75 mg 75 mg PO BID PRN Pain 04/01/24 04/30/24 History tablet,delayed release diphenhydramine HCl 25 mg tablet 25 mg PO HS PRN Sleep 04/01/24 04/30/24 History (Sleep Aid (diphenhydramine)) levothyroxine 50 mcg tablet 50 mcg PO QAM 04/01/24 04/30/24 History lisinopril 10 mg tablet 10 mg PO QAM 04/01/24 04/30/24 History meloxicam 7.5 mg tablet 7.5 mg PO QAM 04/01/24 04/30/24 History sertraline 100 mg tablet 150 mg PO QAM 04/01/24 04/01/24 History oxycodone-acetaminophen 5 mg-325 1 tab PO Q6H PRN pain #14 tabs 04/22/24 1 07/01/23 Rx mg tablet (Percocet) Patient History Medical History History of diverticulitis (~1979) SOB (shortness of breath) on exertion occasional-resolves with albuterol inhaler History of asthma controlled, stable per pt; last used albuterol inhaler 2-3 weeks ago during i ncreased physical activity Anxiety and depression Osteoporosis Sciatica Hypothyroidism levothyroxine was for weight per pt - unknown further details regarding thyroid. Hypercholesterolemia Hypertension controlled, stable per pt Lumbar disc disease Surgical History History of hand surgery (04/2023) left index finger for infection (resolved). can't bend left index finger. History of endoscopy History of back surgery History of carpal tunnel surgery History of Neuroplasty Decompression Median Nerve At Carpal Tunnel - right History of tonsillectomy and adenoidectomy History of total hysterectomy with bilateral salpingo-oophorectomy (BSO) Family History Father Coronary heart disease Arthritis Heart disease Myocardial infarction Mother Acute subdural hematoma Family history of reaction to anesthesia had a hard time to be put under Uncle Diabetes Brother Diabetes Sister Thyroid cancer Aunt Breast cancer Denies family history of Ovarian cancer Prostate cancer Colorectal cancer Social History Smoking Status: Never smoker Second Hand Exposure: Yes (her smoked); Do You Dip or Chew Tobacco: No; Hx Alcohol Use: Yes Alcohol type: wine Alcohol Intake Frequency: Monthly or Less Hx Substance Use: No Preferred Language: Icelandic Communication Ability: Effective Visual Impairment: Limited Hearing Ability: Normal Merchandise Collector Required: No Beliefs That Will Affect Care: None marital status: Current Living Situation: Alone Current Living Situation Comment: daughter & her live next door same apartment/independent living current occupational status: retired 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 Feels Safe at Home: Yes Childhood Exposure to Second-Hand Smoke: Yes Diet: regular caffeine: Yes (coffee half and half. ) during the past year weight has: remained stable Dental Care, Regularly: No Physical Activity Frequency: Daily Seatbelt Use: always Sunscreen Use: No Do you think of yourself as: straight/heterosexual Sexual Activity: has been sexually active, but not for at least 12 months Gender Identity: Female Assistive Devices: Walker and Other Assistive Devices Comment: life alert necklace, occ walking stick outside Review of Systems Review of Systems: All systems reviewed & are unremarkable except as noted in Subjective Physical Exam Physical Exam: General: NAD, VS as above Resp: normal respiratory effort, lungs clear to auscultation anteriorly. weaned down to 1L NC during my encounter CV: RRR, no murmur, Abd: normal bowel sounds, non tender, no hepatosplenomegaly Extremities: Moves all extremities, no edema Neuro: A&O x3, Skin: intact, no lesions noted Results & Data Results & Data Vital Signs (Past 12 Hours) Vital Signs Temp Pulse Pulse Resp BP BP Pulse Ox 04/30/24 16:21 98.4 F 71 16 111/68 94 04/30/24 15:50 74 14 110/56 L 93 04/30/24 15:40 98.1 F 70 14 107/57 L 93 04/30/24 15:30 69 14 104/58 L 98 04/30/24 15:20 73 18 112/56 L 94 04/30/24 15:10 72 16 120/52 L 96 04/30/24 15:00 71 13 105/50 L 99 04/30/24 14:50 62 14 124/50 L 100 04/30/24 14:40 67 13 131/65 100 04/30/24 14:37 97.7 F 66 12 134/56 L 98 04/30/24 06:20 98.4 F 78 20 151/87 H 93 O2 Del Method O2 Flow Rate 04/30/24 16:21 Nasal Cannula 2 04/30/24 15:50 Nasal Cannula 2 04/30/24 15:40 Nasal Cannula 2 04/30/24 15:30 Nasal Cannula 2 04/30/24 15:20 Nasal Cannula 2 04/30/24 15:10 Oxymask 3 04/30/24 15:00 Oxymask 4 04/30/24 14:50 Oxymask 6 04/30/24 14:40 Oxymask 6 04/30/24 14:37 Oxymask 6 04/30/24 06:20 Room Air PG Care Time/CCT Total # of Minutes Spent Total Time Spent with Patient: Total time spent is greater than 50% in coordination of care (as documented) at patient's floor/unit and/or counseling patient: Coding Level of Care Code 88853 IN/OBS CONSULT LVL 2,35M Diagnoses Spinal stenosis, lumbar region, with neurogenic claudication M48.062 Hypertension I10 Anxiety F41.9 Acquired hypothyroidism E03.9 Hypothyroidism type: acquired Hypercholesterolemia E78.00 (4) Hypothyroidism Hypothyroidism type: acquired Qualified Code(s): E03.9 - Hypothyroidism, unspecified
[2024-04-30] MEDS: PRAVASTATIN SOD 20 MG TAB PO SCH (20:15)
[2024-04-30] MEDS: oxyCODONE/ACETAMINOPHEN 5mg/325mg TAB PO PRN (20:15)
[2024-04-30] MEDS: DOCUSATE SODIUM/SENNA 50/8.6MG TAB PO SCH (20:15)
[2024-04-30] MEDS: hydrOXYzine HCl 25 MG TAB PO PRN (20:15)
[2024-04-30] MEDS: ceFAZolin 1000MG 1,000 MG/7.5 ML SYR IV SCH (20:16)
[2024-04-30] MEDS: diphenhydrAMINE Capsule 25 MG CAP PO PRN (22:46)
[2024-05-01] MEDS: POLYETHYLENE (MIRALAX) 17 GM PACK PO SCH (06:08)
[2024-05-01] MEDS: LEVOTHYROXINE SODIUM 50 MCG TABLET PO SCH (06:08)
[2024-05-01 07:12] LABS: Hematocrit (blood only) 31.2 % (37.0-47.0); Mean Corpuscular Hemoglobin 33.2 pg (25.0-34.0); Mean Corpuscular Hgb Conc 32.1 g/dL (32.0-36.0); Mean Corpuscular Volume 103.7 fL (80.0-100.0); Mean Platelet Volume 12.6 fL (9.4-12.4); Platelet Count 126 K/uL (130-400); RDW Coefficient of Variation 14.6 % (11.5-14.5); RDW Standard Deviation 55.5 fL (36.4-46.3); Red Blood Count 3.01 M/uL (4.20-5.40); White Blood Count 8.89 K/ul (4.8-10.8)
[2024-05-01 07:25] LABS: BUN Creatinine Ratio 31.9 (10-20); Calcium 8.2 mg/dl (8.6-10.3); Creatinine Clr Calc Pharmacy 41.2 ml/min; Potassium 4.2 mmol/L (3.5-5.1)
[2024-05-01 08:00] VITALS: RESP 16
--- NOTE | 2024-05-01 08:12 | Orthopedic Progress Note ---
Date of Service May 01, 2024 Subjective Patient seen and examined, she is some incisional pain, has been out of bed to chair. Neurologically intact, some drainage on dressing serosanguineous. Impression/plan: Status post surgery as noted with L2-3 fusion decompression, removal of instrumentation L3-S1. Will mobilize with physical therapy today. Review of Systems All systems reviewed & are unremarkable except as noted in HPI & below. Physical Exam . Results & Data Results & Data Laboratory Results . Diagnostic Findings . PG Care Time/CCT Total # of Minutes Spent Total Time Spent with Patient: Total time spent is greater than 50% in coordination of care (as documented) at patient's floor/unit and/or counseling patient: Coding Level of Care Code 29268 Post Operative Follow-Up
[2024-05-01] MEDS: SERTRALINE HCL 50 MG TABLET PO SCH (08:42)
[2024-05-01] MEDS: lisinopril 10 MG TAB PO SCH (08:46)
[2024-05-01] MEDS: ACETAMINOPHEN 500 MG TAB PO PRN (08:46)
--- NOTE | 2024-05-01 11:11 | Hospitalist Progress Note ---
Date of Service May 01, 2024 Assessment & Plan (1) Spinal stenosis, lumbar region, with neurogenic claudication: Plan: S/P L2-L3 Lateral Lumbar Interbody fusion and cage placement with Dr. Martínez 04/30 - Pain / dvt proh / post op abx per primary - EBL 300 cc, Hgb 10.0, was 14.2 preoperatively - acute blood loss anemia vs dilutional PT/OT/ dc dispo per primary Low grade fever this morning - no urinary or respiratory symptoms, ? atelectasis (2) Hypertension: Plan: Continue lisinopril renal function okay (3) Anxiety: Plan: Continue Zoloft and home xanax (4) Hypothyroidism: Plan: continue synthroid (5) Hypercholesterolemia: Plan: continue statin Plan dispo: continued inpatient stay, monitoring fever curve Thank you for allowing us to participate in the care of this patient, please reach out with any questions or concerns. Medicine will continue to follow Admission and Anticipated Discharge Date Admission Date: April 30, 2024 Supervising Physician Co-Signing Physician Notes Attending Attestation - Chart reviewed, consult care plan d/w HATTIE Huitron. I agree w/ the cohen components of her consult documentation with following addition -- * acute blood loss anemia -- 4 gram hemoglobin drop from pre-op levels POD #1 from elective lumbar spine surgery by Dr Martínez. From medical standpoint is stable. Low threshold for fever work-up if fevers recur/persist. Consider repeat CBC am. Hiram Schultz MD Subjective Patient seen sitting up in the chair - reports that she has been up in the chair for over an hour and is ready to get back to bed. feels like she did okay with PT good appetite Review of Systems Review of Systems: All systems reviewed & are unremarkable except as noted in Subjective Physical Exam Physical Exam: General: NAD, VS as above, sitting up in the chair, appears well Resp: normal respiratory effort, lungs clear to auscultation, no long on supplemental oxygen CV: RRR, no murmur, Abd: normal bowel sounds, non tender, no hepatosplenomegaly Extremities: Moves all extremities, no edema Neuro: A&O x3, Skin: intact, no lesions noted Results & Data Results & Data Vital Signs (Past 12 Hours) Vital Signs Temp Pulse Resp BP Pulse Ox O2 Del Method 05/01/24 08:47 99.3 F 125/61 05/01/24 07:45 Room Air 05/01/24 07:35 99.7 F H 75 16 94/58 L 93 Room Air 05/01/24 03:04 98.4 F 79 18 108/63 92 Room Air Laboratory Results CBC and chemistry reviewed PG Care Time/CCT Total # of Minutes Spent Total Time Spent with Patient: Total time spent is greater than 50% in coordination of care (as documented) at patient's floor/unit and/or counseling patient: Coding Level of Care Code 21314 SUB INP/OBS CARE 2/35MIN Diagnoses Spinal stenosis, lumbar region, with neurogenic claudication M48.062 Hypertension I10 Anxiety F41.9 Acquired hypothyroidism E03.9 Hypothyroidism type: acquired Hypercholesterolemia E78.00 (4) Hypothyroidism Hypothyroidism type: acquired Qualified Code(s): E03.9 - Hypothyroidism, unspecified
--- NOTE | 2024-05-01 16:25 | Operative Report ---
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 L2-3 right lateral interbody arthrodesis. (06671) 2. L2-3 right lateral interbody insertion of cage, NuVasive cohere XL 10 x 18 x 55 mm lordotic. (60465) 3. L2-3 posterior lumbar decompression/laminectomy. (97535) 4. L2-3 posterior arthrodesis. (20623) 5. L2-3 posterior nonsegmental instrumentation, NuVasive reline. (60349) 6. Removal of posterior segmental instrumentation L345S1. (54004) 7. Exploration of fusion L3-4, L4-5, L5-S1. (01960) 8. Autograft from same operative site for fusion purposes. (51451) Patient taken operating room after adequate anesthesia was carefully positioned left lateral decubitus position right side up for a right-sided approach to the L2-3 segment for a lateral interbody fusion. After carefully securing the patient and making adjustments to the table preprepped was performed for the lateral and posterior aspect, fluoroscopy was brought in and made adjustments to the table in the positioning for the lateral approach, this approximate location for the incision was then marked. Prep and drape was performed,. Transverse incision over the right lateral flank and then advanced through the subcutaneous tissues into the retroperitoneal region on the right side. I was able to eventually get into the retroperitoneal region and palpate the lateral aspect of the right aspect of the L2-3 disc space. The initial dilator was inserted using fluoroscopy to adjust with position and checked with monitoring and found to be in proper position roughly at the 50% region of the disc space, a wire was then inserted followed by then dilators with appropriate measurements by monitoring. The access apparatus was then inserted without issue, and the lateral aspect of the space was visualized and checked with the probe. Then secured the ap paratus, and then the size lateral aspect of the annulus followed by then a thorough discectomy the removal of disc material cartilage from the endplates. After a thorough discectomy, trials were then performed with selection of the cage as noted, this particular device was obtained, fusion materials were placed within the disc space and also within the cage and this was tapped in excellent position on AP and lateral views. Final imaging was obtained, I then removed the access apparatus, no issues were noted, vancomycin powder I then placed and this was closed with zero 2-0 Vicryl sutures and husam for the skin, sterile dressing was applied. Patient was then repositioned in the prone position on the Edgar frame, preprepped was performed, I marked for the area and location of the incision extending from L2 down to the S1 region. Midline incision was then made of the spinous processes through the prior operative site, advanced down the spinous processes which were still present more superiorly. I then continued this dissection and extended out laterally to the hardware extending from L3-S1 bilaterally exposing this region. This also included exposure of the transverse processes of L2, lateral structures in this region, the interlaminar region at L2-3, and then the superior fusion aspect of the posterolateral fusion extending from L3 down to S1. The setscrews were removed from the hardware followed by then removal of the rods. I then exposed the fusion mass posteriorly at the mention segments from L3 down to S1 and on close inspection and with forces applied to the pedicle screws no motion could be detected indicating a pseudoarthrosis at any of these levels. The pedicle screws were removed, all these had excellent purchase once again confirming what appears to be solid arthrodesis at these inferior levels from L3-S1. Moving to the L2-3 segment, new 6.5 millimeter screws were inserted at L3, and using fluoroscopy and monitoring inserted to pedicle screws at L2 from the NuVasive reline set. Then performed a decompression at the L2-3 segment with bilateral hemilaminectomies partial medial facetectomies and foraminotomies removing the thickened ligamentum flavum and decompressing the segment. Bone dust was collected from the decompression and also from some areas where excess bone was obtained, this was combined with other fusion materials and then placed in the posterolateral region on both sides extending from L2-L3 after decortication have been performed. The rods were then inserted and the screws and torqued down properly. The operative site had been previously irrigated, at this point I applied vancomycin powder and closed the operative site with 2 layers of 0 Vicryl sutures followed by 2-0 Vicryl sutures and husam for the skin. Sterile dressing was applied, patient tolerated procedure well was taken recovery room satisfactory condition. I attest to the content of the Intraoperative Record and any orders documented therein. Any exceptions are noted below.
[2024-05-01] MEDS: LORazepam 0.5 MG TAB PO PRN (20:17)
[2024-05-02 07:36] VITALS: BP 128/68; PULSE 78; TEMP 98.2; O2SAT 93
--- NOTE | 2024-05-02 09:32 | Hospitalist Progress Note ---
Date of Service May 02, 2024 Assessment & Plan (1) Spinal stenosis, lumbar region, with neurogenic claudication: Plan: S/P L2-L3 Lateral Lumbar Interbody fusion and cage placement with Dr. Martínez 04/30 - Pain / dvt proh / post op abx per primary - EBL 300 cc, Hgb 10.0, was 14.2 preoperatively - acute blood loss anemia vs dilutional PT/OT/ dc dispo per primary no further fevers, pt feeling well. (2) Hypertension: Plan: Continue lisinopril renal function okay (3) Anxiety: Plan: Continue Zoloft and home xanax (4) Hypothyroidism: Plan: continue synthroid (5) Hypercholesterolemia: Plan: continue statin (6) Acute blood loss anemia: Plan: 4 gram drop from pre-op Hb levels (14 --> 10) consider Fe supplementation Plan dispo:medically stable, agree with discharge today. Thank you for allowing us to participate in the care of this patient, please reach out with any questions or concerns. Medicine will sign off. Admission and Anticipated Discharge Date Admission Date: April 30, 2024 Supervising Physician Co-Signing Physician Notes Attending Attestation - Chart reviewed, consult care plan d/w HATTIE Huitron. I agree w/ the cohen components of her consult documentation. Hiram Schultz MD Subjective Patient seen sitting up in bed eating breakfast, having some pain but its controlled. had a bowel movement this morning no further fevers Review of Systems Review of Systems: All systems reviewed & are unremarkable except as noted in Subjective Physical Exam Physical Exam: General: NAD, VS as above, sitting up in bed , appears well Resp: normal respiratory effort, lungs clear to auscultation, no long on supplemental oxygen CV: RRR, no murmur, Abd: normal bowel sounds, non tender, no hepatosplenomegaly Back: dressing c/d/i Extremities: Moves all extremities, no edema Neuro: A&O x3, Skin: intact, no lesions noted Results & Data Results & Data Vital Signs (Past 12 Hours) Vital Signs Temp Pulse Resp BP Pulse Ox O2 Del Method 05/02/24 07:35 98.2 F 78 16 128/68 93 Room Air PG Care Time/CCT Total # of Minutes Spent Total Time Spent with Patient: Total time spent is greater than 50% in coordination of care (as documented) at patient's floor/unit and/or counseling patient: Coding Level of Care Code 19311 SUB INP/OBS CARE Diagnoses Spinal stenosis, lumbar region, with neurogenic claudication M48.062 Hypertension I10 Anxiety F41.9 Acquired hypothyroidism E03.9 Hypothyroidism type: acquired Hypercholesterolemia E78.00 Acute blood loss anemia D62 (4) Hypothyroidism Hypothyroidism type: acquired Qualified Code(s): E03.9 - Hypothyroidism, unspecified
--- NOTE | 2024-05-06 13:02 | Discharge Summary ---
Date of Service May 06, 2024 Admission HPI (Per Admitting) Lumbar stenosis, adjacent segment degeneration Principal Diagnosis Same as "Discharge Diagnosis" noted below under Discharge Instructions. Discharge Exam . 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 procedure: surgery PG Care Time/CCT Total # of Minutes Spent Total Time Spent with Patient: Total time spent is greater than 50% in coordination of care (as documented) at patient's floor/unit and/or counseling patient: Discharge Plan Discharge Items Patient Disposition: Home - Self-Care Reason For Visit: 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 You can wash the incision and surgical site with soap and water briefly and then blot dry with a clean towel/cloth. Cover with a new, sterile dry dressing. If unable to change your dressing, then leave hospital dressing intact and cover the area for showering. Do NOT soak incision. No strenuous activity, lifting, or exercise until further instructed. Use the prescribed pain medication, or [id number] Tylenol, as needed for pain relief. No use of NSAIDs (i.e ibuprofen/Advil/Motrin, naproxen/Aleve, etc.) for at least 2 months after surgery. Pending Studies at Discharge: No Stand-Alone Forms: Story of My Life, Smoking Cessation Medications and DC Order Prescriptions: Continued pravastatin 20 mg tablet 20 mg PO HS Qty: 90 3RF oxycodone-acetaminophen [Percocet] 5-325 mg tablet 1 tab PO Q6H PRN (Reason: pain) Qty: 14 0RF tramadol 50 mg tablet 50 mg PO TID PRN (Reason: pain) Qty: 24 0RF melatonin 10 mg tablet 20 mg PO HS PRN (Reason: Sleep) Excedrin Migraine 250-250-65 mg tablet 1 tab PO UD PRN (Reason: Headache) diphenhydramine HCl [Sleep Aid (diphenhydramine)] 25 mg Tablet 25 mg PO HS PRN (Reason: Sleep) sertraline 100 mg tablet 150 mg PO QAM alprazolam [Xanax] 0.5 mg tablet 0.5 mg PO DAILY PRN (Reason: anxiety) levothyroxine 50 mcg tablet 50 mcg PO QAM Patient Comments: for weight lisinopril 10 mg tablet 10 mg PO QAM albuterol sulfate 90 mcg/actuation HFA aerosol inhaler 1 puff INH QID PRN (Reason: hx asthma, sob ) Rx Instructions: 1-2 puffs INH QID PRN; Held acetaminophen 650 mg tablet extended release 650 mg PO DIRECTED PRN (Reason: Pain) Hold Instructions: until after Percocet prescription is complete diclofenac sodium 75 mg Tablet,Delayed Release (Dr/Ec) 75 mg PO BID PRN (Reason: Pain) Hold Instructions: DO NOT USE for at least 2 months after surgery to allow fusion site to heal meloxicam 7.5 mg tablet 7.5 mg PO QAM Hold Instructions: DO NOT USE for at least 2 months after surgery to allow fusion site to heal Discharge Orders: Discharge Order (Routine); Ordered 05/02/24 Ordered By: Jonathan Morales Admission Data Admit Date/Time: 04/30/24 14:39 Attending Provider: Rivera Martínez Admit Provider: Rivera Martínez Primary Care Provider: Enriqueta Lovett Other Providers: Hiram Schultz Other Interventions: Discharge Summary Assessment (RN) Last Done: 05/02/24 11:04
== END 2024-05-02 12:28 | disposition home or self-care (01) | DRG 402 ==
LOC: ASU 05:54 → 3N 14:39